=== PATIENT | female | born 1990 | race African-American/Black ===

== ENCOUNTER 2017-02-16 13:11 | Inpatient (IN) | payer MEDICAID ==
[2017-02-16] MEDS ORDERED: NORMAL SALINE 1000 ML 1,000 ML IV PRN (13:18)
--- NOTE | 2017-02-16 13:35 | PDOC H&P ---
History of Present Illness Admission Date/PCP: 02/16/17 13:11 YUKI MARSHALL MD Patient complains of: Shortness of the breath and wheezing History of Present Illness: JOSIE ALANIZ is a 26 year old female This is a 26-year-old female with a history of profound mental retardation's and cerebral palsy currently live in assisted living facility brought to the office because of the patient was complaining of wheezing and short of breathStarted this morning and not getting better after the breathing treatments Patient have a recently a G-tube was change and according to the caregiver patient vomited 2 at the time and possible aspirations According to the caregiver patient does not have any fever when I saw the patient in the office patients very bilateral rhonchi and patient Breathing heavy and patient's chest x-ray for the possible pneumonia and the patient's white count was 18,000 and decided to admit in the hospital for further IV antibiotic and a close monitor Review all medications through the caregiver Patient's mother is a power of anatomical embalmer and patients currently DNR but according to the DNR paper mother once is still intubated and still want to do all the measures and see will make decisions for further Past Medical History Neurological Medical History: Reports: Seizures Neurological History Note: Profound mental retardation and cerebral palsy GI Medical History: Reports: Gastroesophageal Reflux Disease GI History Note: G-tube placement Past Surgical History Past Surgical History: Reports: Other - G-tube placement Social History Information Source: Legal Guardian Lives with: Half-Way Smoking Status: Never Smoker Frequency of Alcohol Use: None Hx Recreational Drug Use: No Hx Prescription Drug Abuse: No Family History Family History: Reviewed & Not Pertinent Parental Family History Reviewed: Yes Children Family History Reviewed: Yes Sibling(s) Family History Reviewed.: Yes Review of Systems All systems: reviewed and no additional remarkable complaints except as stated Physical Exam Physical Exam: Patient is currently in a wheelchair bound with profound mental retardation's and cp posture General appearance: PRESENT: no acute distress Head exam: PRESENT: atraumatic Eye exam: PRESENT: PERRLA Mouth exam: PRESENT: dry mucosa Neck exam: ABSENT: JVD Respiratory exam: PRESENT: decreased breath sounds, rhonchi, symmetrical Cardiovascular exam: PRESENT: +S1, +S2, tachycardia GI/Abdominal exam: PRESENT: normal bowel sounds, soft Additonal comments: G-tube is in place Extremities exam: ABSENT: pedal edema Neurological exam: PRESENT: alert, awake Psychiatric exam: PRESENT: anxious Skin exam: PRESENT: dry Assessment & Plan - Diagnosis (1) Aspiration pneumonia Qualifiers: Aspiration pneumonia type: unspecified Laterality: unspecified laterality Is this a current diagnosis for this admission?: Yes Plan: Start the patient on IV antibioticAnd aspirations precautions (2) Leukocytosis Qualifiers: Leukocytosis type: bandemia Qualified Code(s): D72.825 - Bandemia Is this a current diagnosis for this admission?: Yes Plan: Due to the above conditions we will get the blood culture and sputum culture and start the broad-spectrum antibiotic (3) Respiratory distress Is this a current diagnosis for this admission?: Yes Plan: Continues to nebulizer treatments and oxygen's and consult the pulmonary (4) Profound mental retardation Is this a current diagnosis for this admission?: Yes (5) Seizure disorder Is this a current diagnosis for this admission?: Yes Plan: Continues to current seizures medications - Time Time Spent: 30 to 50 Minutes Medications reviewed and adjusted accordingly: Yes Anticipated discharge: SNF Within: Other - Inpatient Certification Medical Necessity: Need Close Monitoring Due to Risk of Patient Decompensation, Need For IV Fluids, Need for IV Antibiotics Post Hospital Care: D/C Shop Teacher Documentation - Plan Summary Plan Summary: Admit the patient in the telemetry bed start an IV antibiotic discussed with the caregiver very extensively and they will inform the mother about the patient 's current conditions and will talk to mother about the patient's CODE STATUS
[2017-02-16 15:49] LABS: HEMATOCRIT 43.2 % (36.0-47.0); HEMOGLOBIN 14.5 g/dL (12.0-15.5); MEAN CORPUSCULAR HEMOGLOBIN 33.2 pg (27.0-33.4); MEAN CORPUSCULAR HGB CONC 33.7 g/dL (32.0-36.0); MEAN CORPUSCULAR VOLUME 99 fl (80-97); PLATELET COUNT 345 10^3/uL (150-450); RED BLOOD COUNT 4.39 10^6/uL (3.72-5.28); WHITE BLOOD COUNT 25.3 10^3/uL (4.0-10.5)
[2017-02-16] MEDS: IPRATROPIUM/ALBUTEROL 0.5-2.5 MG/3 ML AMPUL NEB SCH ×2 (16:13→20:25)
--- NOTE | 2017-02-16 16:59 | RADIOLOGY REPORT (SQ) ---
EXAM DESCRIPTION: CT CHEST WITHOUT COMPLETED DATE/TIME: 02/16/2017 4:45 pm REASON FOR STUDY: respirtory distress/aspiration pnemonia COMPARISON: Chest x-ray dated 02/16/2017 TECHNIQUE: CT scan performed of the chest without intravenous contrast. Images reviewed with lung, soft tissue and bone windows. Reconstructed coronal and sagittal MPR images reviewed. All images st ored on PACS. All CT scanners at this facility use dose modulation, iterative reconstruction, and/or weight based d osing when appropriate to reduce radiation dose to as low as reasonably achievable (ALARA). [facility]: Dose Right [facility]: CareDose [facility]: Dose Right [facility]: Teradose 4D [facility]: Smart Sentrigo RADIATION DOSE: CT Rad equipment meets quality standard of care and radiation dose reduction techniq ues were employed. CTDIvol: 9.3 mGy. DLP: 288 mGy-cm. mGy. LIMITATIONS: Patient has made a shallow inspiration. FINDINGS: LUNGS AND PLEURA: Airspace consolidation is identified in the right mid and lower lung fie ld which could represent atelectatic changes or pneumonic consolidation. No pleural effusions are id entified. No pneumothorax is seen. HILAR AND MEDIASTINAL STRUCTURES: No identified masses or abnormal nodes. No obvious aneurysm. HEART AND VASCULAR STRUCTURES: No aneurysm. No pericardial effusion. UPPER ABDOMEN: No significant findings. Limited exam. THYROID AND OTHER SOFT TISSUES: No masses. No adenopathy. BONES: Thoracolumbar scoliosis is identified. HARDWARE: None in the chest. Enteric tube is identified in the upper abdomen. OTHER: No other significant findings. IMPRESSION: Airspace consolidation is identified in the right mid and lower lung field which could r epresent atelectatic changes or pneumonic consolidation. No pleural effusions are identified. Other findings as noted above TECHNICAL DOCUMENTATION: JOB ID: [id number] Quality ID # [id number]: Final reports with documentation of one or more dose reduction techniques (e.g., Au tomated exposure control, adjustment of the mA and/or kV according to patient size, use of iterative reconstruction technique) 2010 [employer]- All Rights Reserved
[2017-02-16 17:56] LABS: ANION GAP 14 (5-19); BLOOD UREA NITROGEN 6 mg/dL (7-20); CALCIUM 10.5 mg/dL (8.4-10.2); CARBON DIOXIDE 21 mmol/L (22-30); CHLORIDE 108 mmol/L (98-107); GLUCOSE 82 mg/dL (75-110); POTASSIUM 4.2 mmol/L (3.6-5.0); SODIUM 143.4 mmol/L (137-145)
[2017-02-16] MEDS: CLINDAMYCIN 600 MG/D5W RTU 600 MG/50 ML RTUPB IV SCH (18:11)
[2017-02-16] MEDS: BACLOFEN 20 MG TABLET PEG SCH ×2 (18:12→21:50)
[2017-02-16 20:12] LABS: INTERNATIONAL RATION (INR) 0.97; PROTHROMBIN TIME 13.5 SEC (11.4-15.4)
[2017-02-16 20:13] LABS: PARTIAL THROMBOPLASTIN TIME 34.8 SEC (23.5-35.8)
[2017-02-16] MEDS: CEFEPIME 1 GM/D5W RTU 1 GM/50 ML RTUPB IV SCH (21:49)
[2017-02-16] MEDS: FAMOTIDINE INJ/PF 20 MG/2 ML SDV IV SCH (21:50)
[2017-02-16] MEDS: ZONISAMIDE 100 MG CAPSULE PEG SCH (21:50)
[2017-02-16] MEDS ORDERED: FAMOTIDINE INJ/PF 20 MG/2 ML SDV IV SCH (22:00)
[2017-02-16] MEDS ORDERED: CEFEPIME HCL 1 GM in DEXTROSE 5%-WATER 50 ML IV SCH (22:00)
[2017-02-17] MEDS: CLINDAMYCIN 600 MG/D5W RTU 600 MG/50 ML RTUPB IV SCH ×3 (01:07→17:15)
[2017-02-17] MEDS: LANSOPRAZOLE 15 MG TAB.RAP.DR PEG SCH (05:49)
[2017-02-17 06:27] LABS: ABSOLUTE EOSINOPHILS # (AUTO) 0.1 10^3/uL (0.0-0.6); ABSOLUTE MONOCYTES (AUTO) 0.7 10^3/uL (0.1-1.4); BASOPHILS % (AUTO) 0.2 % (0-2); EOSINOPHILS % (AUTO) 0.3 % (0-6); HEMATOCRIT 36.7 % (36.0-47.0); LYMPHOCYTES % (AUTO) 23.7 % (13-45); MEAN CORPUSCULAR HEMOGLOBIN 33.6 pg (27.0-33.4); MEAN CORPUSCULAR HGB CONC 33.8 g/dL (32.0-36.0); MEAN CORPUSCULAR VOLUME 100 fl (80-97); MONOCYTES % (AUTO) 3.9 % (3-13); PLATELET COUNT 299 10^3/uL (150-450); RED BLOOD COUNT 3.69 10^6/uL (3.72-5.28); SEGMENTED NEUTROPHILS % (AUTO) 71.9 % (42-78); TOTAL CELLS COUNTED % (AUTO) 100 %; WHITE BLOOD COUNT 16.7 10^3/uL (4.0-10.5)
[2017-02-17 06:39] LABS: HEMOGLOBIN 12.4 g/dL (12.0-15.5)
[2017-02-17 06:52] LABS: ANION GAP 11 (5-19); BLOOD UREA NITROGEN 6 mg/dL (7-20); CALCIUM 9.2 mg/dL (8.4-10.2); CARBON DIOXIDE 21 mmol/L (22-30); CHLORIDE 108 mmol/L (98-107); GLUCOSE 91 mg/dL (75-110); POTASSIUM 3.7 mmol/L (3.6-5.0); SODIUM 139.9 mmol/L (137-145)
[2017-02-17] MEDS: IPRATROPIUM/ALBUTEROL 0.5-2.5 MG/3 ML AMPUL NEB SCH ×3 (07:40→16:43)
[2017-02-17] MEDS ORDERED: CALCIUM CARBONATE 1250 MG PEG SCH (10:00)
[2017-02-17] MEDS ORDERED: LEVONORGESTREL ETHIN ESTRADIOL PEG SCH (10:00)
[2017-02-17] MEDS: POLYETHYLENE GLYCOL 3350 POWDER 17 GM/1 PACKET PEG SCH (10:12)
[2017-02-17] MEDS: CALCIUM CARBONATE 500 MG TAB.CHEW PEG SCH (10:12)
[2017-02-17] MEDS: BACLOFEN 20 MG TABLET PEG SCH ×4 (10:12→22:56)
[2017-02-17] MEDS: FAMOTIDINE INJ/PF 20 MG/2 ML SDV IV SCH ×2 (10:13→22:55)
[2017-02-17] MEDS: ENOXAPARIN SODIUM INJ 40 MG/0.4 ML DISP.SYRIN SUBCUT SCH (10:13)
[2017-02-17] MEDS: CEFEPIME 1 GM/D5W RTU 1 GM/50 ML RTUPB IV SCH ×2 (10:13→22:55)
--- NOTE | 2017-02-17 11:03 | PDOC CONSULTATION ---
Consultation Consult Date: 02/16/17 Attending physician:: YUKI MARSHALL Consult reason:: pna History of Present Illness Admission Date/PCP: 02/16/17 13:11 YUKI MARSHALL MD History of Present Illness: JOSIE ALANIZ is a 26 year old female Information all information is derived from chart as patient unable to respond this is a 26-year-old female with a history of profound mental retardation's and cerebral palsy currently live in assisted living facility brought to the office because of the patient was complaining of wheezing and short of breathStarted this morning and not getting better after the breathing treatments Patient have a recently a G-tube was change and according to the caregiver patient vomited 2 at the time and possible aspirations According to the caregiver patient does not have any fever when I saw the patient in the office patients very bilateral rhonchi and patient Breathing heavy and patient's chest x-ray for the possible pneumonia and the patient's white count was 18,000 and decided to admit in the hospital for further IV antibiotic and a close monitor her Past Medical History Cardiac Medical History: Denies: Myocardial Infarction, Pulmonary Embolism Pulmonary Medical History: Reports: Pneumonia EENT Medical History: Denies: Ears, Nose Neurological Medical History: Reports: Seizures Denies: Multiple Sclerosis Endocrine Medical History: Denies: Diabetes Mellitus Type 1, Gestational Diabetes Renal/ Medical History: Denies: Nephrolithiasis Malignancy Medical History: Reports: None GI Medical History: Reports: Gastroesophageal Reflux Disease Denies: Cirrhosis, Crohn's Disease, Ulcerative Colitis Musculoskeltal Medical History: Denies: Gout Skin Medical History: Denies: Psoriasis Psychiatric Medical History: Reports: Other - Cerebral palsy advanced Traumatic Medical History: Denies: Traumatic Brain Injury Hematology: Denies: Sickle Cell Disease, Bleeding Tendencies Infectious Medical History: Denies: Hepatitis B, Hepatitis C Past Surgical History Past Surgical History: Reports: Other - G-tube placement Social History Information Source: [facility] Records Lives with: Half-Way Smoking Status: Never Smoker Frequency of Alcohol Use: None Hx Recreational Drug Use: No Hx Prescription Drug Abuse: No Do you have pets?: No Have you had any respiratory illnesses as a child?: No Have you been exposed to any sick contacts recently?: No Have you had any recent respiratory illnesses?: No Have you travelled outside of [place] in the past 12 months?: No Family History Parental Family History Reviewed: No Children Family History Reviewed: No Sibling(s) Family History Reviewed.: No Medication/Allergy Home Medications: Baclofen [Baclofen 20 mg Tablet] 20 mg PEG QID 02/16/17 Calcium Carbonate 1,250 mg PEG DAILY 02/16/17 Lansoprazole [Prevacid 15 mg Odt Tablet] 15 mg PEG Q6AM 02/16/17 Levonorgestrel-Ethin Estradiol [Introvale 0.15-0.03 mg Tablet] 1 tab PEG DAILY 02/16/17 Polyethylene Glycol 3350 [Miralax Powder 17 gm/Packet] 1 packet PEG DAILY Tegretol 5 ml PEG TID 02/16/17 Zonisamide [Zonegran 100 mg Capsule] 200 mg PEG QHS 02/16/17 Allergies/Adverse Reactions: No Known Allergies Allergy (Unverified 02/16/17 15:29) Review of Systems ROS unobtainable: Due to mental status Physical Exam Vital Signs: Temp Pulse Resp BP Pulse Ox 99.1 F 110 H 22 H 98/65 L 93 02/16/17 16:00 02/16/17 19:00 02/16/17 16:00 02/16/17 16:00 02/16/17 16:00 Intake & Output 02/15/17 02/16/17 02/17/17 06:59 06:59 06:59 Weight 39.7 kg General appearance: PRESENT: no acute distress, disheveled. ABSENT: cooperative , mild distress, morbidly obese, obese, severe distress, well-developed Head exam: PRESENT: atraumatic, normocephalic Eye exam: PRESENT: conjunctiva pale, EOMI. ABSENT: conjunctival injection, conjunctiva pink, periorbital swelling, scleral icterus Mouth exam: PRESENT: dry mucosa, neck supple. ABSENT: laceration, moist Neck exam: ABSENT: carotid bruit, JVD, lymphadenopathy, thyromegaly, tracheal deviation, tracheostomy Respiratory exam: PRESENT: decreased breath sounds, prolonged expiratory phas, rales, rhonchi, symmetrical, unlabored. ABSENT: accessory muscle use, chest wall tenderness, clear to auscultation abeba, crackles, retraction, stridor, tachypnea Cardiovascular exam: PRESENT: RRR, +S1, +S2 Pulses: PRESENT: normal radial pulses GI/Abdominal exam: PRESENT: normal bowel sounds, soft, other - PEG tube in place. ABSENT: distended, guarding, mass, organolmegaly, rebound, tenderness Extremities exam: ABSENT: clubbing, joint swelling Musculoskeletal exam: PRESENT: deformity. ABSENT: ambulatory, dislocation, full ROM Skin exam: PRESENT: dry, warm Results Laboratory Results: 02/16/17 15:20 02/16/17 17:15 02/16/17 02/16/17 15:20 17:15 WBC 25.3 H RBC 4.39 Hgb 14.5 Hct 43.2 MCV 99 H MCH 33.2 MCHC 33.7 RDW 14.0 Plt Count 345 Sodium 143.4 Potassium 4.2 Chloride 108 H Carbon Dioxide 21 L Anion Gap 14 BUN 6 L Creatinine 0.37 L Est GFR ( Amer) > 60 Est GFR (Non-Af Amer) > 60 Glucose 82 Calcium 10.5 H Impressions: Chest CT 02/16/17 00:00 IMPRESSION: Airspace consolidation is identified in the right mid and lower lung field which could represent atelectatic changes or pneumonic consolidation. No pleural effusions are identified. Other findings as noted above Assessment & Plan - Diagnosis (1) Aspiration pneumonia Qualifiers: Aspiration pneumonia type: unspecified Laterality: unspecified laterality Is this a current diagnosis for this admission?: Yes Plan: Keep patient in reverse Trendelenburg at all times right middle and lower lobes (2) Profound mental retardation Is this a current diagnosis for this admission?: Yes Plan: Unchanged (3) Respiratory distress Is this a current diagnosis for this admission?: Yes Plan: Stable at this time (4) Seizure disorder Is this a current diagnosis for this admission?: Yes
--- NOTE | 2017-02-17 13:21 | PDOC PROGRESS REPORT ---
Subjective Progress Note for:: 02/17/17 Subjective:: Patient is currently doing well Patient's CT of the chest was suggesting some aspiration pneumonia Patient's, no fever overnight and white count is also coming down in no respiratory distress Patient's mother is on the bedside discussed with the mother about all the test reports and the patient's conditions Reason For Visit: ASPIRATION PNEUMONIA Physical Exam Vital Signs: Temp Pulse Resp BP Pulse Ox 98.4 F 92 16 111/68 94 02/17/17 11:45 02/17/17 12:09 02/17/17 12:09 02/17/17 11:45 02/17/17 12:09 Intake & Output 02/16/17 02/17/17 02/18/17 06:59 06:59 06:59 Intake Total 800 Balance 800 Weight 40 kg Physical Exam: Profound mental retardation's General appearance: PRESENT: no acute distress Eye exam: PRESENT: PERRLA Neck exam: ABSENT: JVD Respiratory exam: PRESENT: decreased breath sounds Cardiovascular exam: PRESENT: +S1, +S2 GI/Abdominal exam: PRESENT: normal bowel sounds, soft Extremities exam: ABSENT: pedal edema Neurological exam: PRESENT: alert, altered Skin exam: PRESENT: dry Results Laboratory Results: 02/17/17 05:24 02/17/17 05:24 02/16/17 02/16/17 02/17/17 15:20 17:15 05:24 WBC 25.3 H 16.7 H RBC 4.39 3.69 L Hgb 14.5 12.4 D Hct 43.2 36.7 MCV 99 H 100 H MCH 33.2 33.6 H MCHC 33.7 33.8 RDW 14.0 14.0 Plt Count 345 299 Seg Neutrophils % 71.9 Lymphocytes % 23.7 Monocytes % 3.9 Eosinophils % 0.3 Basophils % 0.2 Absolute Neutrophils 12.0 H Absolute Lymphocytes 4.0 Absolute Monocytes 0.7 Absolute Eosinophils 0.1 Absolute Basophils 0.0 Sodium 143.4 Potassium 4.2 Chloride 108 H Carbon Dioxide 21 L Anion Gap 14 BUN 6 L Creatinine 0.37 L Est GFR ( Amer) > 60 Est GFR (Non-Af Amer) > 60 Glucose 82 Calcium 10.5 H 02/17/17 05:24 WBC RBC Hgb Hct MCV MCH MCHC RDW Plt Count Seg Neutrophils % Lymphocytes % Monocytes % Eosinophils % Basophils % Absolute Neutrophils Absolute Lymphocytes Absolute Monocytes Absolute Eosinophils Absolute Basophils Sodium 139.9 Potassium 3.7 Chloride 108 H Carbon Dioxide 21 L Anion Gap 11 BUN 6 L Creatinine 0.40 L Est GFR ( Amer) > 60 Est GFR (Non-Af Amer) > 60 Glucose 91 Calcium 9.2 Impressions: Chest CT 02/16/17 00:00 IMPRESSION: Airspace consolidation is identified in the right mid and lower lung field which could represent atelectatic changes or pneumonic consolidation. No pleural effusions are identified. Other findings as noted above Assessment & Plan - Diagnosis (1) Aspiration pneumonia Qualifiers: Aspiration pneumonia type: unspecified Laterality: unspecified laterality Is this a current diagnosis for this admission?: Yes Plan: Continues to IV antibiotic (2) Leukocytosis Qualifiers: Leukocytosis type: bandemia Qualified Code(s): D72.825 - Bandemia Is this a current diagnosis for this admission?: Yes Plan: Most likely coming from the S patient's pneumonia (3) Respiratory distress Is this a current diagnosis for this admission?: Yes Plan: Currently all stable (4) Profound mental retardation Is this a current diagnosis for this admission?: Yes (5) Seizure disorder Is this a current diagnosis for this admission?: Yes Plan: Continues to current seizures medications - Time Time Spent with patient: 15-24 minutes Medications reviewed and adjusted accordingly: Yes Anticipated discharge: SNF Within: Other - Inpatient Certification Medical Necessity: Need Close Monitoring Due to Risk of Patient Decompensation, Need for IV Antibiotics Post Hospital Care: D/C Qualitative Field Project Manager Documentation - Plan Summary Plan Summary: Continues to current medication
[2017-02-17] MEDS ORDERED: DILTIAZEM HCL 30 MG TABLET PO ONE (18:30)
[2017-02-17] MEDS: LEVALBUTEROL HCL NEB 1.25 MG/3 ML AMPUL NEB SCH (20:28)
[2017-02-17] MEDS ORDERED: CEFEPIME 1 GM/D5W RTU 1 GM/50 ML RTUPB IV ONE (22:44)
[2017-02-17] MEDS: ZONISAMIDE 100 MG CAPSULE PEG SCH (22:55)
[2017-02-18] MEDS: CLINDAMYCIN 600 MG/D5W RTU 600 MG/50 ML RTUPB IV SCH ×3 (02:38→17:41)
[2017-02-18 05:19] LABS: ABSOLUTE EOSINOPHILS # (AUTO) 0.1 10^3/uL (0.0-0.6); ABSOLUTE LYMPHOCYTES (AUTO) 3.6 10^3/uL (0.5-4.7); ABSOLUTE MONOCYTES (AUTO) 1.1 10^3/uL (0.1-1.4); ABSOLUTE NEUT (AUTO) 7.9 10^3/uL (1.7-8.2); BASOPHILS % (AUTO) 0.4 % (0-2); EOSINOPHILS % (AUTO) 1.1 % (0-6); HEMATOCRIT 34.9 % (36.0-47.0); HEMOGLOBIN 11.6 g/dL (12.0-15.5); MEAN CORPUSCULAR HGB CONC 33.2 g/dL (32.0-36.0); MEAN CORPUSCULAR VOLUME 99 fl (80-97); MONOCYTES % (AUTO) 8.9 % (3-13); PLATELET COUNT 297 10^3/uL (150-450); RED BLOOD COUNT 3.51 10^6/uL (3.72-5.28); SEGMENTED NEUTROPHILS % (AUTO) 61.6 % (42-78); TOTAL CELLS COUNTED % (AUTO) 100 %; WHITE BLOOD COUNT 12.9 10^3/uL (4.0-10.5)
[2017-02-18 05:33] LABS: ANION GAP 10 (5-19); BLOOD UREA NITROGEN 10 mg/dL (7-20); CALCIUM 9.1 mg/dL (8.4-10.2); CARBON DIOXIDE 20 mmol/L (22-30); CHLORIDE 114 mmol/L (98-107); GLUCOSE 122 mg/dL (75-110); POTASSIUM 3.6 mmol/L (3.6-5.0)
[2017-02-18] MEDS: LANSOPRAZOLE 15 MG TAB.RAP.DR PEG SCH (06:06)
[2017-02-18] MEDS: LEVALBUTEROL HCL NEB 1.25 MG/3 ML AMPUL NEB SCH ×4 (07:45→20:29)
--- NOTE | 2017-02-18 09:44 | PDOC PROGRESS REPORT ---
Subjective Progress Note for:: 02/18/17 Subjective:: Patient is currently doing fair No fever overnight Patient DuoNeb was changed to the Xopenex due to the elevated heart rateAnd doing well Patient's white count is also coming down Reason For Visit: ASPIRATION PNEUMONIA Physical Exam Vital Signs: Temp Pulse Resp BP Pulse Ox 98.4 F 80 17 116/88 H 100 02/18/17 08:00 02/18/17 08:00 02/18/17 08:00 02/18/17 08:00 02/18/17 08:00 Intake & Output 02/17/17 02/18/17 02/19/17 06:59 06:59 06:59 Intake Total 800 2320 Balance 800 2320 Weight 40 kg 46.7 kg General appearance: PRESENT: no acute distress Eye exam: PRESENT: PERRLA Respiratory exam: PRESENT: clear to auscultation abeba Cardiovascular exam: PRESENT: +S1, +S2 GI/Abdominal exam: PRESENT: normal bowel sounds, soft Neurological exam: PRESENT: alert Skin exam: PRESENT: dry Results Laboratory Results: 02/18/17 04:55 02/18/17 04:55 02/18/17 02/18/17 04:55 04:55 WBC 12.9 H RBC 3.51 L Hgb 11.6 L Hct 34.9 L MCV 99 H MCH 33.0 MCHC 33.2 RDW 14.0 Plt Count 297 Seg Neutrophils % 61.6 Lymphocytes % 28.0 Monocytes % 8.9 Eosinophils % 1.1 Basophils % 0.4 Absolute Neutrophils 7.9 Absolute Lymphocytes 3.6 Absolute Monocytes 1.1 Absolute Eosinophils 0.1 Absolute Basophils 0.0 Sodium 144.0 Potassium 3.6 Chloride 114 H Carbon Dioxide 20 L Anion Gap 10 BUN 10 Creatinine 0.41 L Est GFR ( Amer) > 60 Est GFR (Non-Af Amer) > 60 Glucose 122 H Calcium 9.1 Impressions: Chest CT 02/16/17 00:00 IMPRESSION: Airspace consolidation is identified in the right mid and lower lung field which could represent atelectatic changes or pneumonic consolidation. No pleural effusions are identified. Other findings as noted above Assessment & Plan - Diagnosis (1) Aspiration pneumonia Qualifiers: Aspiration pneumonia type: unspecified Laterality: unspecified laterality Is this a current diagnosis for this admission?: Yes Plan: Continues to IV antibiotic (2) Leukocytosis Qualifiers: Leukocytosis type: bandemia Qualified Code(s): D72.825 - Bandemia Is this a current diagnosis for this admission?: Yes Plan: Most likely coming from the S patient's pneumonia (3) Respiratory distress Is this a current diagnosis for this admission?: Yes Plan: Currently all stable (4) Profound mental retardation Is this a current diagnosis for this admission?: Yes (5) Seizure disorder Is this a current diagnosis for this admission?: Yes Plan: Continues to current seizures medications - Time Time Spent with patient: 15-24 minutes Medications reviewed and adjusted accordingly: Yes Anticipated discharge: SNF Within: Other - Inpatient Certification Medical Necessity: Need Close Monitoring Due to Risk of Patient Decompensation, Need for IV Antibiotics Post Hospital Care: D/C Learning Manager Documentation - Plan Summary Plan Summary: Continues IV antibiotic repeat the chest x-ray today
[2017-02-18] MEDS: POLYETHYLENE GLYCOL 3350 POWDER 17 GM/1 PACKET PEG SCH (10:04)
[2017-02-18] MEDS: FAMOTIDINE INJ/PF 20 MG/2 ML SDV IV SCH ×2 (10:04→23:05)
[2017-02-18] MEDS: CALCIUM CARBONATE 500 MG TAB.CHEW PEG SCH (10:05)
[2017-02-18] MEDS: BACLOFEN 20 MG TABLET PEG SCH ×4 (10:06→23:05)
[2017-02-18] MEDS: ENOXAPARIN SODIUM INJ 40 MG/0.4 ML DISP.SYRIN SUBCUT SCH (10:08)
[2017-02-18] MEDS: CEFEPIME 1 GM/D5W RTU 1 GM/50 ML RTUPB IV SCH ×2 (10:10→23:05)
--- NOTE | 2017-02-18 12:16 | RADIOLOGY REPORT (SQ) ---
EXAM DESCRIPTION: CHEST SINGLE VIEW COMPLETED DATE/TIME: 02/18/2017 11:59 am REASON FOR STUDY: aspiration pnemonia COMPARISON: Chest x-ray and chest CT scan dated 02/16/2017 EXAM PARAMETERS: NUMBER OF VIEWS: One view. TECHNIQUE: Single frontal radiographic view of the chest acquired. RADIATION DOSE: NA LIMITATIONS: Study is limited due to the patient making a shallow inspiration, the rotation of the im age and the patient's arm overlying a portion of the right hemithorax. FINDINGS: LUNGS AND PLEURA: There is ill-defined increased density in the left hemithorax which coul d represent a developing infiltrate or atelectatic changes. MEDIASTINUM AND HILAR STRUCTURES: No masses. Contour normal. HEART AND VASCULAR STRUCTURES: Allowing for the rotation and technique, the configuration of the hear t mediastinal structures is unchanged BONES: No acute findings. HARDWARE: None in the chest. OTHER: Some elevation of the right hemidiaphragm is seen. IMPRESSION: Limited study as noted above. There is ill-defined increased density in the left hemith orax which could represent a developing infiltrate or atelectatic changes. Other findings as noted terri anguiano TECHNICAL DOCUMENTATION: JOB ID: [id number] [employer]- All Rights Reserved
--- NOTE | 2017-02-18 12:24 | PDOC PROGRESS REPORT ---
Subjective Progress Note for:: 02/18/17 Reason For Visit: ASPIRATION PNEUMONIA Physical Exam Vital Signs: Temp Pulse Resp BP Pulse Ox 98.4 F 80 17 116/88 H 100 02/18/17 08:00 02/18/17 08:00 02/18/17 08:00 02/18/17 08:00 02/18/17 08:00 Intake & Output 02/17/17 02/18/17 02/19/17 06:59 06:59 06:59 Intake Total 800 2320 Balance 800 2320 Weight 40 kg 46.7 kg General appearance: PRESENT: no acute distress, disheveled. ABSENT: cooperative , mild distress, morbidly obese, obese, severe distress Eye exam: PRESENT: conjunctiva pale. ABSENT: conjunctival injection, conjunctiva pink, scleral icterus Mouth exam: PRESENT: dry mucosa, neck supple, tongue midline. ABSENT: laceration, moist Neck exam: ABSENT: carotid bruit, JVD, lymphadenopathy, thyromegaly, tracheal deviation, tracheostomy Respiratory exam: PRESENT: crackles, decreased breath sounds, prolonged expiratory phas, rhonchi, symmetrical, unlabored, wheezes. ABSENT: accessory muscle use, chest wall tenderness, clear to auscultation abeba, rales, retraction , stridor, tachypnea Cardiovascular exam: PRESENT: RRR, +S1, +S2. ABSENT: rubs Pulses: PRESENT: normal radial pulses GI/Abdominal exam: PRESENT: other - PEG tube Extremities exam: ABSENT: clubbing, joint swelling Musculoskeletal exam: ABSENT: ambulatory, full ROM Neurological exam: PRESENT: awake Skin exam: PRESENT: dry, warm Results Laboratory Results: 02/18/17 04:55 02/18/17 04:55 02/18/17 02/18/17 04:55 04:55 WBC 12.9 H RBC 3.51 L Hgb 11.6 L Hct 34.9 L MCV 99 H MCH 33.0 MCHC 33.2 RDW 14.0 Plt Count 297 Seg Neutrophils % 61.6 Lymphocytes % 28.0 Monocytes % 8.9 Eosinophils % 1.1 Basophils % 0.4 Absolute Neutrophils 7.9 Absolute Lymphocytes 3.6 Absolute Monocytes 1.1 Absolute Eosinophils 0.1 Absolute Basophils 0.0 Sodium 144.0 Potassium 3.6 Chloride 114 H Carbon Dioxide 20 L Anion Gap 10 BUN 10 Creatinine 0.41 L Est GFR ( Amer) > 60 Est GFR (Non-Af Amer) > 60 Glucose 122 H Calcium 9.1 Impressions: Chest CT 02/16/17 00:00 IMPRESSION: Airspace consolidation is identified in the right mid and lower lung field which could represent atelectatic changes or pneumonic consolidation. No pleural effusions are identified. Other findings as noted above Assessment & Plan - Diagnosis (1) Aspiration pneumonia Qualifiers: Aspiration pneumonia type: unspecified Laterality: unspecified laterality Is this a current diagnosis for this admission?: Yes Plan: Keep patient in reverse Trendelenburg at all times right middle and lower lobes (2) Profound mental retardation Is this a current diagnosis for this admission?: Yes Plan: Unchanged (3) Respiratory distress Is this a current diagnosis for this admission?: No (4) Seizure disorder Is this a current diagnosis for this admission?: Yes
[2017-02-18] MEDS: ZONISAMIDE 100 MG CAPSULE PEG SCH (23:05)
[2017-02-19] MEDS: CLINDAMYCIN 600 MG/D5W RTU 600 MG/50 ML RTUPB IV SCH ×3 (02:02→17:24)
[2017-02-19] MEDS: LANSOPRAZOLE 15 MG TAB.RAP.DR PEG SCH (05:23)
[2017-02-19 06:01] LABS: ANION GAP 11 (5-19); BLOOD UREA NITROGEN 11 mg/dL (7-20); CALCIUM 9.2 mg/dL (8.4-10.2); CARBON DIOXIDE 20 mmol/L (22-30); CHLORIDE 111 mmol/L (98-107); GLUCOSE 101 mg/dL (75-110); POTASSIUM 4.3 mmol/L (3.6-5.0); SODIUM 142.2 mmol/L (137-145)
[2017-02-19 06:51] LABS: ABSOLUTE EOSINOPHILS # (AUTO) 0.4 10^3/uL (0.0-0.6); ABSOLUTE LYMPHOCYTES (AUTO) 3.5 10^3/uL (0.5-4.7); ABSOLUTE MONOCYTES (AUTO) 0.7 10^3/uL (0.1-1.4); ABSOLUTE NEUT (AUTO) 5.5 10^3/uL (1.7-8.2); BASOPHILS % (AUTO) 0.4 % (0-2); EOSINOPHILS % (AUTO) 4.1 % (0-6); HEMATOCRIT 36.5 % (36.0-47.0); HEMOGLOBIN 12.5 g/dL (12.0-15.5); LYMPHOCYTES % (AUTO) 34.6 % (13-45); MEAN CORPUSCULAR HEMOGLOBIN 33.6 pg (27.0-33.4); MEAN CORPUSCULAR HGB CONC 34.2 g/dL (32.0-36.0); MEAN CORPUSCULAR VOLUME 98 fl (80-97); MONOCYTES % (AUTO) 7.2 % (3-13); PLATELET COUNT 312 10^3/uL (150-450); RED BLOOD COUNT 3.72 10^6/uL (3.72-5.28); RED CELL DISTRIBUTION WIDTH 13.8 % (11.5-14.0); SEGMENTED NEUTROPHILS % (AUTO) 53.7 % (42-78); TOTAL CELLS COUNTED % (AUTO) 100 %; WHITE BLOOD COUNT 10.2 10^3/uL (4.0-10.5)
[2017-02-19] MEDS: LEVALBUTEROL HCL NEB 1.25 MG/3 ML AMPUL NEB SCH ×4 (07:45→19:48)
[2017-02-19] MEDS: FAMOTIDINE INJ/PF 20 MG/2 ML SDV IV SCH ×2 (09:25→22:48)
[2017-02-19] MEDS: ENOXAPARIN SODIUM INJ 40 MG/0.4 ML DISP.SYRIN SUBCUT SCH (09:25)
[2017-02-19] MEDS: CALCIUM CARBONATE 500 MG TAB.CHEW PEG SCH (09:26)
[2017-02-19] MEDS: BACLOFEN 20 MG TABLET PEG SCH ×4 (09:26→22:49)
[2017-02-19] MEDS: POLYETHYLENE GLYCOL 3350 POWDER 17 GM/1 PACKET PEG SCH (09:27)
[2017-02-19] MEDS: CEFEPIME 1 GM/D5W RTU 1 GM/50 ML RTUPB IV SCH ×2 (11:33→22:49)
--- NOTE | 2017-02-19 12:49 | PDOC PROGRESS REPORT ---
Subjective Progress Note for:: 02/19/17 Subjective:: Patient is currently doing fair No fever overnight Patient DuoNeb was changed to the Xopenex due to the elevated heart rateAnd doing well Patient's white count is also coming down Reason For Visit: ASPIRATION PNEUMONIA Physical Exam Vital Signs: Temp Pulse Resp BP Pulse Ox 98.3 F 90 16 133/94 H 95 02/19/17 08:19 02/19/17 11:06 02/19/17 11:06 02/19/17 08:19 02/19/17 11:06 Intake & Output 02/18/17 02/19/17 02/20/17 06:59 06:59 06:59 Intake Total 2320 2259 Balance 2320 2259 Weight 46.7 kg 48.2 kg General appearance: PRESENT: no acute distress Eye exam: PRESENT: PERRLA Respiratory exam: PRESENT: decreased breath sounds Cardiovascular exam: PRESENT: +S1, +S2 GI/Abdominal exam: PRESENT: normal bowel sounds, soft Extremities exam: ABSENT: pedal edema Neurological exam: PRESENT: alert, awake Skin exam: PRESENT: dry Results Laboratory Results: 02/19/17 06:40 02/19/17 04:59 02/19/17 02/19/17 02/19/17 04:59 04:59 06:40 WBC Cancelled 10.2 RBC Cancelled 3.72 Hgb Cancelled 12.5 Hct Cancelled 36.5 MCV Cancelled 98 H MCH Cancelled 33.6 H MCHC Cancelled 34.2 RDW Cancelled 13.8 Plt Count Cancelled 312 Seg Neutrophils % Cancelled 53.7 Lymphocytes % Cancelled 34.6 Monocytes % Cancelled 7.2 Eosinophils % Cancelled 4.1 Basophils % Cancelled 0.4 Absolute Neutrophils Cancelled 5.5 Absolute Lymphocytes Cancelled 3.5 Absolute Monocytes Cancelled 0.7 Absolute Eosinophils Cancelled 0.4 Absolute Basophils Cancelled 0.0 Sodium 142.2 Potassium 4.3 Chloride 111 H Carbon Dioxide 20 L Anion Gap 11 BUN 11 Creatinine 0.33 L Est GFR ( Amer) > 60 Est GFR (Non-Af Amer) > 60 Glucose 101 Calcium 9.2 Impressions: Chest CT 02/16/17 00:00 IMPRESSION: Airspace consolidation is identified in the right mid and lower lung field which could represent atelectatic changes or pneumonic consolidation. No pleural effusions are identified. Other findings as noted above Chest X-Ray 02/18/17 00:00 IMPRESSION: Limited study as noted above. There is ill-defined increased density in the left hemithorax which could represent a developing infiltrate or atelectatic changes. Other findings as noted above Assessment & Plan - Diagnosis (1) Aspiration pneumonia Qualifiers: Aspiration pneumonia type: unspecified Laterality: unspecified laterality Is this a current diagnosis for this admission?: Yes Plan: Continues to IV antibiotic (2) Leukocytosis Qualifiers: Leukocytosis type: bandemia Qualified Code(s): D72.825 - Bandemia Is this a current diagnosis for this admission?: Yes Plan: Most likely coming from the S patient's pneumonia (3) Respiratory distress Is this a current diagnosis for this admission?: No Plan: Currently all stable (4) Profound mental retardation Is this a current diagnosis for this admission?: Yes (5) Seizure disorder Is this a current diagnosis for this admission?: Yes Plan: Continues to current seizures medications - Time Time Spent with patient: 15-24 minutes Medications reviewed and adjusted accordingly: Yes Anticipated discharge: Other Within: Other - Inpatient Certification Medical Necessity: Need Close Monitoring Due to Risk of Patient Decompensation Post Hospital Care: D/C Instructor Physical Documentation - Plan Summary Plan Summary: cont curr med
[2017-02-19] MEDS: ZONISAMIDE 100 MG CAPSULE PEG SCH (22:49)
[2017-02-20] MEDS: CLINDAMYCIN 600 MG/D5W RTU 600 MG/50 ML RTUPB IV SCH ×3 (02:59→17:27)
[2017-02-20] MEDS: LANSOPRAZOLE 15 MG TAB.RAP.DR PEG SCH (06:43)
[2017-02-20 06:48] LABS: ABSOLUTE BASOPHILS # (AUTO) 0.1 10^3/uL (0.0-0.2); ABSOLUTE EOSINOPHILS # (AUTO) 0.4 10^3/uL (0.0-0.6); ABSOLUTE LYMPHOCYTES (AUTO) 3.1 10^3/uL (0.5-4.7); ABSOLUTE MONOCYTES (AUTO) 0.8 10^3/uL (0.1-1.4); ABSOLUTE NEUT (AUTO) 8.8 10^3/uL (1.7-8.2); BASOPHILS % (AUTO) 0.4 % (0-2); EOSINOPHILS % (AUTO) 3.2 % (0-6); HEMATOCRIT 41.3 % (36.0-47.0); HEMOGLOBIN 14.2 g/dL (12.0-15.5); LYMPHOCYTES % (AUTO) 23.4 % (13-45); MEAN CORPUSCULAR HEMOGLOBIN 33.7 pg (27.0-33.4); MEAN CORPUSCULAR HGB CONC 34.3 g/dL (32.0-36.0); MEAN CORPUSCULAR VOLUME 98 fl (80-97); MONOCYTES % (AUTO) 6.3 % (3-13); PLATELET COUNT 351 10^3/uL (150-450); RED BLOOD COUNT 4.21 10^6/uL (3.72-5.28); RED CELL DISTRIBUTION WIDTH 13.8 % (11.5-14.0); SEGMENTED NEUTROPHILS % (AUTO) 66.7 % (42-78); TOTAL CELLS COUNTED % (AUTO) 100 %; WHITE BLOOD COUNT 13.2 10^3/uL (4.0-10.5)
[2017-02-20 07:10] LABS: ANION GAP 13 (5-19); BLOOD UREA NITROGEN 13 mg/dL (7-20); CALCIUM 9.9 mg/dL (8.4-10.2); CARBON DIOXIDE 19 mmol/L (22-30); CHLORIDE 108 mmol/L (98-107); GLUCOSE 102 mg/dL (75-110)
[2017-02-20] MEDS: LEVALBUTEROL HCL NEB 1.25 MG/3 ML AMPUL NEB SCH ×4 (08:10→20:58)
[2017-02-20] MEDS: CEFEPIME 1 GM/D5W RTU 1 GM/50 ML RTUPB IV SCH ×2 (09:55→22:29)
[2017-02-20] MEDS: CALCIUM CARBONATE 500 MG TAB.CHEW PEG SCH (10:32)
[2017-02-20] MEDS: ENOXAPARIN SODIUM INJ 40 MG/0.4 ML DISP.SYRIN SUBCUT SCH (10:32)
[2017-02-20] MEDS: FAMOTIDINE INJ/PF 20 MG/2 ML SDV IV SCH ×2 (10:32→22:28)
[2017-02-20] MEDS: POLYETHYLENE GLYCOL 3350 POWDER 17 GM/1 PACKET PEG SCH (10:33)
[2017-02-20] MEDS: BACLOFEN 20 MG TABLET PEG SCH ×4 (10:34→22:29)
--- NOTE | 2017-02-20 14:28 | PDOC PROGRESS REPORT ---
Subjective Progress Note for:: 02/20/17 Subjective:: Remain nonverbal communicatively. No reported difficulty with breathing or fever. Tolerating PEG tube feeding. Reason For Visit: ASPIRATION PNEUMONIA Physical Exam Vital Signs: Temp Pulse Resp BP Pulse Ox 98.4 F 88 17 134/86 H 99 02/20/17 11:20 02/20/17 12:00 02/20/17 12:00 02/20/17 11:20 02/20/17 12:00 Intake & Output 02/19/17 02/20/17 02/21/17 06:59 06:59 06:59 Intake Total 2259 1230 Balance 2259 1230 Weight 48.2 kg 47.1 kg General appearance: PRESENT: no acute distress Head exam: PRESENT: atraumatic, normocephalic Mouth exam: PRESENT: moist Respiratory exam: PRESENT: crackles - scattered bilaterally, decreased breath sounds - at bases Cardiovascular exam: PRESENT: RRR. ABSENT: diastolic murmur, rubs, systolic murmur Vascular exam: PRESENT: normal capillary refill. ABSENT: pallor GI/Abdominal exam: PRESENT: normal bowel sounds, soft, other - PEG site satisfactory Musculoskeletal exam: PRESENT: deformity - extensive contracture deformities Neurological exam: PRESENT: awake - and cooperative with examination Skin exam: PRESENT: dry, warm Results Laboratory Results: 02/20/17 06:09 02/20/17 06:09 02/20/17 02/20/17 06:09 06:09 WBC 13.2 H RBC 4.21 Hgb 14.2 Hct 41.3 MCV 98 H MCH 33.7 H MCHC 34.3 RDW 13.8 Plt Count 351 Seg Neutrophils % 66.7 Lymphocytes % 23.4 Monocytes % 6.3 Eosinophils % 3.2 Basophils % 0.4 Absolute Neutrophils 8.8 H Absolute Lymphocytes 3.1 Absolute Monocytes 0.8 Absolute Eosinophils 0.4 Absolute Basophils 0.1 Sodium 140.0 Potassium 4.0 Chloride 108 H Carbon Dioxide 19 L Anion Gap 13 BUN 13 Creatinine 0.37 L Est GFR ( Amer) > 60 Est GFR (Non-Af Amer) > 60 Glucose 102 Calcium 9.9 Impressions: Chest CT 02/16/17 00:00 IMPRESSION: Airspace consolidation is identified in the right mid and lower lung field which could represent atelectatic changes or pneumonic consolidation. No pleural effusions are identified. Other findings as noted above Chest X-Ray 02/18/17 00:00 IMPRESSION: Limited study as noted above. There is ill-defined increased density in the left hemithorax which could represent a developing infiltrate or atelectatic changes. Other findings as noted above Assessment & Plan - Diagnosis (1) Aspiration pneumonia Qualifiers: Aspiration pneumonia type: unspecified Laterality: unspecified laterality Is this a current diagnosis for this admission?: Yes Plan: Continue IV Cefepime and Cleocin coverage. See covering attending physician orders. 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 (3) Seizure disorder Is this a current diagnosis for this admission?: Yes Plan: See covering attending physician orders. (4) Profound mental retardation Is this a current diagnosis for this admission?: Yes Plan: See covering attending physician orders. - Time Time Spent with patient: 25-34 minutes Medications reviewed and adjusted accordingly: Yes Anticipated discharge: SNF Within: Other - Inpatient Certification Based on my medical assessment, after consideration of the patient's comorbidities, presenting symptoms, or acuity I expect that the services needed warrant INPATIENT care.: Yes I certify that my determination is in accordance with my understanding of Medicare's requirements for reasonable and necessary INPATIENT services [42 CFR 412.3e].: Yes Medical Necessity: Need Close Monitoring Due to Risk of Patient Decompensation, Need For IV Fluids, Need For Continuous Telemetry Monitoring, Need for IV Antibiotics, Risk of Complication if Not Cared For in Hospital Post Hospital Care: D/C or Transfer Summary - Plan Summary Plan Summary: See covering attending physician orders.
[2017-02-20] MEDS: ZONISAMIDE 100 MG CAPSULE PEG SCH (22:29)
[2017-02-21] MEDS: CLINDAMYCIN 600 MG/D5W RTU 600 MG/50 ML RTUPB IV SCH ×3 (02:48→17:54)
[2017-02-21] MEDS: LANSOPRAZOLE 15 MG TAB.RAP.DR PEG SCH (05:44)
[2017-02-21] MEDS: LEVALBUTEROL HCL NEB 1.25 MG/3 ML AMPUL NEB SCH ×4 (07:36→20:44)
[2017-02-21 08:08] LABS: ABSOLUTE BASOPHILS # (AUTO) 0.1 10^3/uL (0.0-0.2); ABSOLUTE EOSINOPHILS # (AUTO) 0.3 10^3/uL (0.0-0.6); ABSOLUTE LYMPHOCYTES (AUTO) 2.5 10^3/uL (0.5-4.7); ABSOLUTE MONOCYTES (AUTO) 0.8 10^3/uL (0.1-1.4); ABSOLUTE NEUT (AUTO) 7.1 10^3/uL (1.7-8.2); BASOPHILS % (AUTO) 0.6 % (0-2); EOSINOPHILS % (AUTO) 3.2 % (0-6); HEMATOCRIT 40.8 % (36.0-47.0); HEMOGLOBIN 14.1 g/dL (12.0-15.5); LYMPHOCYTES % (AUTO) 22.8 % (13-45); MEAN CORPUSCULAR HGB CONC 34.5 g/dL (32.0-36.0); MEAN CORPUSCULAR VOLUME 99 fl (80-97); MONOCYTES % (AUTO) 7.8 % (3-13); PLATELET COUNT 383 10^3/uL (150-450); RED BLOOD COUNT 4.14 10^6/uL (3.72-5.28); RED CELL DISTRIBUTION WIDTH 13.7 % (11.5-14.0); SEGMENTED NEUTROPHILS % (AUTO) 65.6 % (42-78); TOTAL CELLS COUNTED % (AUTO) 100 %; WHITE BLOOD COUNT 10.8 10^3/uL (4.0-10.5)
[2017-02-21 08:31] LABS: ANION GAP 13 (5-19); BLOOD UREA NITROGEN 13 mg/dL (7-20); CALCIUM 9.9 mg/dL (8.4-10.2); CARBON DIOXIDE 20 mmol/L (22-30); CHLORIDE 108 mmol/L (98-107); GLUCOSE 88 mg/dL (75-110); POTASSIUM 4.8 mmol/L (3.6-5.0); SODIUM 140.5 mmol/L (137-145)
[2017-02-21] MEDS: BACLOFEN 20 MG TABLET PEG SCH ×4 (10:16→22:50)
[2017-02-21] MEDS: CALCIUM CARBONATE 500 MG TAB.CHEW PEG SCH (10:16)
[2017-02-21] MEDS: POLYETHYLENE GLYCOL 3350 POWDER 17 GM/1 PACKET PEG SCH (10:16)
[2017-02-21] MEDS: ENOXAPARIN SODIUM INJ 40 MG/0.4 ML DISP.SYRIN SUBCUT SCH (10:16)
[2017-02-21] MEDS: FAMOTIDINE INJ/PF 20 MG/2 ML SDV IV SCH ×2 (10:16→22:49)
[2017-02-21] MEDS: CEFEPIME 1 GM/D5W RTU 1 GM/50 ML RTUPB IV SCH ×2 (11:16→22:49)
--- NOTE | 2017-02-21 12:53 | PDOC PROGRESS REPORT ---
Subjective Progress Note for:: 02/21/17 Subjective:: Tolerating PEG tube feeding with minimal residual volume. No reported fever or decline in breathing effort since last clinical evaluation. Reason For Visit: ASPIRATION PNEUMONIA Physical Exam Vital Signs: Temp Pulse Resp BP Pulse Ox 98.2 F 63 16 119/87 H 99 02/21/17 11:17 02/21/17 12:00 02/21/17 12:00 02/21/17 11:17 02/21/17 12:00 Intake & Output 02/20/17 02/21/17 02/22/17 06:59 06:59 06:59 Intake Total 1230 1164 0 Balance 1230 1164 0 Weight 47.1 kg 47.1 kg Physical Exam: General appearance: PRESENT: no acute distress Head exam: PRESENT: atraumatic, normocephalic Mouth exam: PRESENT: moist Respiratory exam: PRESENT: crackles - scattered bilaterally, decreased breath sounds - at bases Cardiovascular exam: PRESENT: RRR. ABSENT: diastolic murmur, rubs, systolic murmur Vascular exam: PRESENT: normal capillary refill. ABSENT: pallor GI/Abdominal exam: PRESENT: normal bowel sounds, soft, other - PEG site satisfactory Musculoskeletal exam: PRESENT: deformity - extensive contracture deformities Neurological exam: PRESENT: awake - and cooperative with examination Skin exam: PRESENT: dry, warm Results Laboratory Results: 02/21/17 07:32 02/21/17 07:32 02/21/17 02/21/17 07:32 07:32 WBC 10.8 H RBC 4.14 Hgb 14.1 Hct 40.8 MCV 99 H MCH 34.0 H MCHC 34.5 RDW 13.7 Plt Count 383 Seg Neutrophils % 65.6 Lymphocytes % 22.8 Monocytes % 7.8 Eosinophils % 3.2 Basophils % 0.6 Absolute Neutrophils 7.1 Absolute Lymphocytes 2.5 Absolute Monocytes 0.8 Absolute Eosinophils 0.3 Absolute Basophils 0.1 Sodium 140.5 Potassium 4.8 Chloride 108 H Carbon Dioxide 20 L Anion Gap 13 BUN 13 Creatinine 0.35 L Est GFR ( Amer) > 60 Est GFR (Non-Af Amer) > 60 Glucose 88 Calcium 9.9 Impressions: Chest CT 02/16/17 00:00 IMPRESSION: Airspace consolidation is identified in the right mid and lower lung field which could represent atelectatic changes or pneumonic consolidation. No pleural effusions are identified. Other findings as noted above Chest X-Ray 02/18/17 00:00 IMPRESSION: Limited study as noted above. There is ill-defined increased density in the left hemithorax which could represent a developing infiltrate or atelectatic changes. 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 Is this a current diagnosis for this admission?: Yes (3) Seizure disorder Is this a current diagnosis for this admission?: Yes (4) Profound mental retardation Is this a current diagnosis for this admission?: Yes - Time Time Spent with patient: 25-34 minutes Medications reviewed and adjusted accordingly: Yes Anticipated discharge: SNF Within: Other - Inpatient Certification Based on my medical assessment, after consideration of the patient's comorbidities, presenting symptoms, or acuity I expect that the services needed warrant INPATIENT care.: Yes I certify that my determination is in accordance with my understanding of Medicare's requirements for reasonable and necessary INPATIENT services [42 CFR 412.3e].: Yes Medical Necessity: Need Close Monitoring Due to Risk of Patient Decompensation, Need For IV Fluids, Need for IV Antibiotics, Risk of Complication if Not Cared For in Hospital Post Hospital Care: D/C or Transfer Summary - Plan Summary Plan Summary: See covering attending physician orders.
[2017-02-21] MEDS: ZONISAMIDE 100 MG CAPSULE PEG SCH (22:50)
[2017-02-22] MEDS: CLINDAMYCIN 600 MG/D5W RTU 600 MG/50 ML RTUPB IV SCH ×3 (02:19→18:19)
[2017-02-22] MEDS: LANSOPRAZOLE 15 MG TAB.RAP.DR PEG SCH (05:07)
[2017-02-22 06:17] LABS: ANION GAP 11 (5-19); BLOOD UREA NITROGEN 17 mg/dL (7-20); CALCIUM 9.8 mg/dL (8.4-10.2); CARBON DIOXIDE 22 mmol/L (22-30); CHLORIDE 109 mmol/L (98-107); GLUCOSE 105 mg/dL (75-110); POTASSIUM 4.1 mmol/L (3.6-5.0); SODIUM 142.3 mmol/L (137-145)
[2017-02-22] MEDS: LEVALBUTEROL HCL NEB 1.25 MG/3 ML AMPUL NEB SCH ×4 (09:27→21:21)
[2017-02-22] MEDS: POLYETHYLENE GLYCOL 3350 POWDER 17 GM/1 PACKET PEG SCH (11:33)
[2017-02-22] MEDS: CALCIUM CARBONATE 500 MG TAB.CHEW PEG SCH (11:33)
[2017-02-22] MEDS: FAMOTIDINE INJ/PF 20 MG/2 ML SDV IV SCH ×2 (11:34→22:47)
[2017-02-22] MEDS: CEFEPIME 1 GM/D5W RTU 1 GM/50 ML RTUPB IV SCH ×2 (11:35→22:47)
[2017-02-22] MEDS: BACLOFEN 20 MG TABLET PEG SCH ×4 (11:41→22:47)
[2017-02-22] MEDS: ENOXAPARIN SODIUM INJ 40 MG/0.4 ML DISP.SYRIN SUBCUT SCH (11:42)
--- NOTE | 2017-02-22 14:37 | PDOC PROGRESS REPORT ---
Subjective Progress Note for:: 02/22/17 Subjective:: No fever. No difficulty with breathing. Tolerating PEG tube feeding without significant residual volume. Remain on IV antibiotic coverage. Reason For Visit: ASPIRATION PNEUMONIA Physical Exam Vital Signs: Temp Pulse Resp BP Pulse Ox 98.6 F 75 20 144/89 H 99 02/22/17 11:33 02/22/17 12:56 02/22/17 12:56 02/22/17 11:33 02/22/17 12:56 Intake & Output 02/21/17 02/22/17 02/23/17 06:59 06:59 06:59 Intake Total 1164 240 Balance 1164 240 Weight 47.1 kg Physical Exam: General appearance: PRESENT: no acute distress Head exam: PRESENT: atraumatic, normocephalic Mouth exam: PRESENT: moist Respiratory exam: PRESENT: crackles - scattered bilaterally, decreased breath sounds - at bases Cardiovascular exam: PRESENT: RRR. ABSENT: diastolic murmur, rubs, systolic murmur Vascular exam: PRESENT: normal capillary refill. ABSENT: pallor GI/Abdominal exam: PRESENT: normal bowel sounds, soft, other - PEG site satisfactory Musculoskeletal exam: PRESENT: deformity - extensive contracture deformities Neurological exam: PRESENT: awake - and cooperative with examination Skin exam: PRESENT: dry, warm Results Laboratory Results: 02/21/17 07:32 02/22/17 05:20 02/22/17 05:20 Sodium 142.3 Potassium 4.1 Chloride 109 H Carbon Dioxide 22 Anion Gap 11 BUN 17 Creatinine 0.40 L Est GFR ( Amer) > 60 Est GFR (Non-Af Amer) > 60 Glucose 105 Calcium 9.8 02/16/17 17:15 Blood Blood Culture - Final NO GROWTH IN 5 DAYS 02/16/17 15:20 Blood Blood Culture - Final NO GROWTH IN 5 DAYS Impressions: Chest CT 02/16/17 00:00 IMPRESSION: Airspace consolidation is identified in the right mid and lower lung field which could represent atelectatic changes or pneumonic consolidation. No pleural effusions are identified. Other findings as noted above Chest X-Ray 02/18/17 00:00 IMPRESSION: Limited study as noted above. There is ill-defined increased density in the left hemithorax which could represent a developing infiltrate or atelectatic changes. 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 Is this a current diagnosis for this admission?: Yes (3) Seizure disorder Is this a current diagnosis for this admission?: Yes (4) Profound mental retardation Is this a current diagnosis for this admission?: Yes - Time Time Spent with patient: 25-34 minutes Medications reviewed and adjusted accordingly: Yes Anticipated discharge: SNF Within: Other - Inpatient Certification Based on my medical assessment, after consideration of the patient's comorbidities, presenting symptoms, or acuity I expect that the services needed warrant INPATIENT care.: Yes I certify that my determination is in accordance with my understanding of Medicare's requirements for reasonable and necessary INPATIENT services [42 CFR 412.3e].: Yes Medical Necessity: Need Close Monitoring Due to Risk of Patient Decompensation, Need For IV Fluids, Need For Continuous Telemetry Monitoring, Need for IV Antibiotics, Risk of Complication if Not Cared For in Hospital Post Hospital Care: D/C or Transfer Summary - Plan Summary Plan Summary: See covering attending physician orders.
[2017-02-22] MEDS: ZONISAMIDE 100 MG CAPSULE PEG SCH (22:47)
[2017-02-23] MEDS: CLINDAMYCIN 600 MG/D5W RTU 600 MG/50 ML RTUPB IV SCH ×2 (02:15→11:24)
[2017-02-23] MEDS: LANSOPRAZOLE 15 MG TAB.RAP.DR PEG SCH (05:25)
[2017-02-23] MEDS: LEVALBUTEROL HCL NEB 1.25 MG/3 ML AMPUL NEB SCH ×4 (08:22→20:45)
--- NOTE | 2017-02-23 11:08 | PDOC PROGRESS REPORT ---
Subjective Progress Note for:: 02/23/17 Subjective:: Patient is currently doing fair No events happens the weekends and no fever Reason For Visit: ASPIRATION PNEUMONIA Physical Exam Vital Signs: Temp Pulse Resp BP Pulse Ox 97.6 F 99 16 157/91 H 93 02/23/17 07:53 02/23/17 08:22 02/23/17 08:22 02/23/17 07:53 02/23/17 08:22 Intake & Output 02/22/17 02/23/17 02/24/17 06:59 06:59 06:59 Intake Total 240 900 Balance 240 900 Weight 43.9 kg General appearance: PRESENT: no acute distress Eye exam: PRESENT: PERRLA Mouth exam: PRESENT: neck supple Respiratory exam: PRESENT: decreased breath sounds Cardiovascular exam: PRESENT: +S1, +S2 GI/Abdominal exam: PRESENT: normal bowel sounds, soft Extremities exam: ABSENT: pedal edema Neurological exam: PRESENT: alert, awake Results Laboratory Results: 02/21/17 07:32 02/22/17 05:20 Impressions: Chest X-Ray 02/18/17 00:00 IMPRESSION: Limited study as noted above. There is ill-defined increased density in the left hemithorax which could represent a developing infiltrate or atelectatic changes. Other findings as noted above Assessment & Plan - Diagnosis (1) Aspiration pneumonia Qualifiers: Aspiration pneumonia type: unspecified Laterality: unspecified laterality Is this a current diagnosis for this admission?: Yes Plan: Continues to IV antibiotic (2) Leukocytosis Qualifiers: Leukocytosis type: bandemia Qualified Code(s): D72.825 - Bandemia Is this a current diagnosis for this admission?: Yes Plan: Most likely coming from the S patient's pneumonia (3) Respiratory distress Is this a current diagnosis for this admission?: No Plan: Currently all stable (4) Profound mental retardation Is this a current diagnosis for this admission?: Yes (5) Seizure disorder Is this a current diagnosis for this admission?: Yes Plan: Continues to current seizures medications - Time Time Spent with patient: 15-24 minutes Medications reviewed and adjusted accordingly: Yes Anticipated discharge: Other Within: Other - Inpatient Certification Medical Necessity: Need Close Monitoring Due to Risk of Patient Decompensation, Need for IV Antibiotics Post Hospital Care: D/C It Intern Documentation - Plan Summary Plan Summary: Plan to repeat the CT of the chest and if it looks all stable discharge tomorrow morning with oral antibiotic
[2017-02-23] MEDS: FAMOTIDINE INJ/PF 20 MG/2 ML SDV IV SCH ×2 (11:24→21:02)
[2017-02-23] MEDS: ENOXAPARIN SODIUM INJ 40 MG/0.4 ML DISP.SYRIN SUBCUT SCH (11:24)
[2017-02-23] MEDS: BACLOFEN 20 MG TABLET PEG SCH ×4 (11:24→21:03)
[2017-02-23] MEDS: POLYETHYLENE GLYCOL 3350 POWDER 17 GM/1 PACKET PEG SCH (11:25)
[2017-02-23] MEDS: CALCIUM CARBONATE 500 MG TAB.CHEW PEG SCH (11:25)
--- NOTE | 2017-02-23 12:16 | RADIOLOGY REPORT (SQ) ---
EXAM DESCRIPTION: CT CHEST WITHOUT COMPLETED DATE/TIME: 02/23/2017 10:23 am REASON FOR STUDY: Aspiration pneumonia COMPARISON: 02/16/2017. TECHNIQUE: CT scan performed of the chest without intravenous contrast. Images reviewed with lung, soft tissue and bone windows. Reconstructed coronal and sagittal MPR images reviewed. All images st ored on PACS. All CT scanners at this facility use dose modulation, iterative reconstruction, and/or weight based d osing when appropriate to reduce radiation dose to as low as reasonably achievable (ALARA). [facility]: Dose Right [facility]: CareDose [facility]: Dose Right [facility]: Teradose 4D [facility]: [employer] RADIATION DOSE: CT Rad equipment meets quality standard of care and radiation dose reduction techniq ues were employed. CTDIvol: 8.4 mGy. DLP: 231 mGy-cm. mGy. LIMITATIONS: No technical limitations. FINDINGS: LUNGS AND PLEURA: Faint minimal hazy densities throughout both lungs. Areas of consolidat ion in the right lung have improved with residual streaky linear changes. No pleural effusion. No p neumothorax. HILAR AND MEDIASTINAL STRUCTURES: No identified masses or abnormal nodes. No obvious aneurysm. HEART AND VASCULAR STRUCTURES: No aneurysm. No pericardial effusion. UPPER ABDOMEN: Gastrostomy tube. Limited exam. THYROID AND OTHER SOFT TISSUES: No masses. No adenopathy. BONES: Chronic changes in the spine with scoliosis. HARDWARE: None in the chest. OTHER: No other significant findings. IMPRESSION: IMPROVEMENT IN THE AREAS OF CONSOLIDATION IN THE RIGHT LUNG. FAINT MINIMAL HAZY DENSITI ES PROBABLY DUE TO ATELECTASIS. TECHNICAL DOCUMENTATION: JOB ID: [id number] Quality ID # [id number]: Final reports with documentation of one or more dose reduction techniques (e.g., Au tomated exposure control, adjustment of the mA and/or kV according to patient size, use of iterative reconstruction technique) 2010 [employer]- All Rights Reserved
[2017-02-23] MEDS: CEFEPIME 1 GM/D5W RTU 1 GM/50 ML RTUPB IV SCH (13:35)
[2017-02-23] MEDS ORDERED: LABETALOL HCL INJ 20 MG/4 ML DISP.SYRIN IV PRN (20:19)
[2017-02-23] MEDS: ACETAMINOPHEN 325 MG TABLET PO PRN (20:29)
[2017-02-23] MEDS ORDERED: LEVALBUTEROL HCL NEB 1.25 MG/3 ML AMPUL NEB ONE (20:45)
[2017-02-23] MEDS: ZONISAMIDE 100 MG CAPSULE PEG SCH (21:03)
[2017-02-24] MEDS: ACETAMINOPHEN 325 MG TABLET PO PRN ×2 (03:25→21:29)
[2017-02-24] MEDS: LANSOPRAZOLE 15 MG TAB.RAP.DR PEG SCH (05:16)
[2017-02-24] MEDS: LEVALBUTEROL HCL NEB 1.25 MG/3 ML AMPUL NEB SCH ×4 (08:58→20:36)
--- NOTE | 2017-02-24 09:15 | PDOC PROGRESS REPORT ---
Subjective Progress Note for:: 02/24/17 Subjective:: Patient CT of the chest is all improving but the last night the nurses call regarding the patient's having some agitations and elevated blood pressures This is also noticed that the patient unable to urinate but is very hard to evaluate because of the patient is incontinent and patient was straight cath was done was only 50 mL comes There is no nausea no vomiting no throwing up episodes Last night the nurses concern about some abdominal distention's but I do not appreciate this morningThe tube feeding was hold last night Reason For Visit: ASPIRATION PNEUMONIA Physical Exam Vital Signs: Temp Pulse Resp BP Pulse Ox 97.9 F 91 13 135/87 H 100 02/24/17 03:52 02/24/17 03:52 02/24/17 03:52 02/24/17 03:52 02/24/17 03:52 Intake & Output 02/23/17 02/24/17 02/25/17 06:59 06:59 06:59 Intake Total 900 747 Output Total 50 Balance 900 697 Weight 43.9 kg 44.3 kg General appearance: PRESENT: no acute distress Eye exam: PRESENT: PERRLA Cardiovascular exam: PRESENT: +S1, +S2 GI/Abdominal exam: PRESENT: normal bowel sounds, soft Additonal comments: G-tube is present Extremities exam: ABSENT: pedal edema Neurological exam: PRESENT: alert Results Laboratory Results: 02/21/17 07:32 02/22/17 05:20 Impressions: Chest X-Ray 02/18/17 00:00 IMPRESSION: Limited study as noted above. There is ill-defined increased density in the left hemithorax which could represent a developing infiltrate or atelectatic changes. Other findings as noted above Chest CT 02/23/17 00:00 IMPRESSION: IMPROVEMENT IN THE AREAS OF CONSOLIDATION IN THE RIGHT LUNG. FAINT MINIMAL HAZY DENSITIES PROBABLY DUE TO ATELECTASIS. Assessment & Plan - Diagnosis (1) Aspiration pneumonia Qualifiers: Aspiration pneumonia type: unspecified Laterality: unspecified laterality Is this a current diagnosis for this admission?: Yes Plan: Continues to IV antibiotics I think we switch to the p.o. antibiotic once we rule out the GI issue (2) Leukocytosis Qualifiers: Leukocytosis type: bandemia Qualified Code(s): D72.825 - Bandemia Is this a current diagnosis for this admission?: Yes Plan: Currently all stable (3) Respiratory distress Is this a current diagnosis for this admission?: No Plan: Currently all stable (4) Profound mental retardation Is this a current diagnosis for this admission?: Yes (5) Seizure disorder Is this a current diagnosis for this admission?: Yes Plan: Continues to current seizures medications - Time Time Spent with patient: 15-24 minutes Medications reviewed and adjusted accordingly: Yes Anticipated discharge: SNF Within: Other - Inpatient Certification Medical Necessity: Need Close Monitoring Due to Risk of Patient Decompensation Post Hospital Care: D/C Managing Consultant Documentation - Plan Summary Plan Summary: We will get the CT abdomen pelvis and the blood work today
[2017-02-24 11:23] LABS: ABSOLUTE EOSINOPHILS # (AUTO) 0.4 10^3/uL (0.0-0.6); ABSOLUTE LYMPHOCYTES (AUTO) 2.3 10^3/uL (0.5-4.7); ABSOLUTE MONOCYTES (AUTO) 0.9 10^3/uL (0.1-1.4); ABSOLUTE NEUT (AUTO) 4.8 10^3/uL (1.7-8.2); BASOPHILS % (AUTO) 0.5 % (0-2); EOSINOPHILS % (AUTO) 4.2 % (0-6); HEMATOCRIT 41.8 % (36.0-47.0); HEMOGLOBIN 14.2 g/dL (12.0-15.5); LYMPHOCYTES % (AUTO) 27.6 % (13-45); MEAN CORPUSCULAR HEMOGLOBIN 33.7 pg (27.0-33.4); MEAN CORPUSCULAR HGB CONC 33.9 g/dL (32.0-36.0); MEAN CORPUSCULAR VOLUME 99 fl (80-97); MONOCYTES % (AUTO) 10.8 % (3-13); PLATELET COUNT 446 10^3/uL (150-450); RED CELL DISTRIBUTION WIDTH 13.8 % (11.5-14.0); SEGMENTED NEUTROPHILS % (AUTO) 56.9 % (42-78); TOTAL CELLS COUNTED % (AUTO) 100 %; WHITE BLOOD COUNT 8.4 10^3/uL (4.0-10.5)
[2017-02-24] MEDS: BACLOFEN 20 MG TABLET PEG SCH ×4 (11:43→21:29)
[2017-02-24 11:44] LABS: ANION GAP 13 (5-19); BLOOD UREA NITROGEN 17 mg/dL (7-20); CALCIUM 10.5 mg/dL (8.4-10.2); CARBON DIOXIDE 23 mmol/L (22-30); CHLORIDE 107 mmol/L (98-107); GLUCOSE 81 mg/dL (75-110); POTASSIUM 4.6 mmol/L (3.6-5.0); SODIUM 143.4 mmol/L (137-145)
[2017-02-24] MEDS: CALCIUM CARBONATE 500 MG TAB.CHEW PEG SCH (11:44)
[2017-02-24] MEDS: POLYETHYLENE GLYCOL 3350 POWDER 17 GM/1 PACKET PEG SCH (11:44)
[2017-02-24] MEDS: FAMOTIDINE INJ/PF 20 MG/2 ML SDV IV SCH ×2 (11:45→21:29)
[2017-02-24] MEDS: ENOXAPARIN SODIUM INJ 40 MG/0.4 ML DISP.SYRIN SUBCUT SCH (11:45)
--- NOTE | 2017-02-24 11:47 | RADIOLOGY REPORT (SQ) ---
EXAM DESCRIPTION: CT ABD/PELVIS NO ORAL OR IV COMPLETED DATE/TIME: 02/24/2017 10:50 am REASON FOR STUDY: abd distenstion COMPARISON: CT chest 02/23/2017, 02/16/2017 CT abdomen pelvis 07/25/2014, 08/31/2007 TECHNIQUE: CT scan of the abdomen and pelvis performed without intravenous or oral contrast. Images reviewed with lung, soft tissue, and bone windows. Reconstructed coronal and sagittal MPR images revi ewed. All images stored on PACS. All CT scanners at this facility use dose modulation, iterative reconstruction, and/or weight based d osing when appropriate to reduce radiation dose to as low as reasonably achievable (ALARA). [facility]: Dose Right [facility]: CareDose [facility]: Dose Right [facility]: Teradose 4D [facility]: [employer] RADIATION DOSE: CT Rad equipment meets quality standard of care and radiation dose reduction techniq ues were employed. CTDIvol: 5.0 mGy. DLP: 200 mGy-cm.mGy. LIMITATIONS: Distorted anatomy from accentuated convex leftward thoracolumbar curvature. FINDINGS: LOWER CHEST: No significant findings. No nodules or infiltrates. NON-CONTRASTED LIVER, SPLEEN, ADRENALS: Evaluation limited by lack of IV contrast. No identified sign ificant masses. PANCREAS: No masses. No peripancreatic inflammatory changes. GALLBLADDER: No identified stones by CT criteria. No inflammatory changes to suggest cholecystitis. RIGHT KIDNEY AND URETER: No suspicious masses. Assessment limited by lack of IV contrast. No signif icant calcifications. No hydronephrosis or hydroureter. LEFT KIDNEY AND URETER: No suspicious masses. Assessment limited by lack of IV contrast. No signifi cant calcifications. No hydronephrosis or hydroureter. AORTA AND RETROPERITONEUM: No aneurysm. No retroperitoneal masses or adenopathy. BOWEL AND PERITONEAL CAVITY: No obvious masses or inflammatory changes. No free fluid. APPENDIX: Not identified PELVIS, BLADDER, AND ABDOMINAL WALL:No abnormal masses. No free fluid. Bladder normal. BONES: No significant findings. OTHER: Patient has a gastrojejunostomy tube. Balloon is in the duodenojejunal junction, unchanged fr om multiple previous studies IMPRESSION: NO SIGNIFICANT OR ACUTE PROCESS IN THE ABDOMEN OR PELVIS. COMMENT: Quality ID # [id number]: Final reports with documentation of one or more dose reduction techniques (e.g., Automated exposure control, adjustment of the mA and/or kV according to patient size, use of iterative reconstruction technique) TECHNICAL DOCUMENTATION: JOB ID: [id number]- All Rights Reserved
[2017-02-24] MEDS ORDERED: CARBAMAZEPINE SUSP 200 MG/10 ML UDCUP GT ONE (15:30)
[2017-02-24] MEDS: ZONISAMIDE 100 MG CAPSULE PEG SCH (21:29)
[2017-02-24] MEDS: CARBAMAZEPINE SUSP 200 MG/10 ML UDCUP GT SCH (21:29)
[2017-02-25] MEDS: LANSOPRAZOLE 15 MG TAB.RAP.DR PEG SCH (05:28)
[2017-02-25] MEDS: CARBAMAZEPINE SUSP 200 MG/10 ML UDCUP GT SCH ×3 (05:28→22:43)
[2017-02-25] MEDS: LEVALBUTEROL HCL NEB 1.25 MG/3 ML AMPUL NEB SCH ×4 (09:28→21:50)
[2017-02-25] MEDS: POLYETHYLENE GLYCOL 3350 POWDER 17 GM/1 PACKET PEG SCH (09:50)
[2017-02-25] MEDS: CALCIUM CARBONATE 500 MG TAB.CHEW PEG SCH (09:50)
[2017-02-25] MEDS: ENOXAPARIN SODIUM INJ 40 MG/0.4 ML DISP.SYRIN SUBCUT SCH (09:50)
[2017-02-25] MEDS: FAMOTIDINE INJ/PF 20 MG/2 ML SDV IV SCH ×2 (09:50→22:43)
[2017-02-25] MEDS: BACLOFEN 20 MG TABLET PEG SCH ×4 (09:50→22:43)
--- NOTE | 2017-02-25 10:57 | PDOC PROGRESS REPORT ---
Subjective Progress Note for:: 02/25/17 Subjective:: Patient is currently doing fair No other events happened No fever Reason For Visit: ASPIRATION PNEUMONIA Physical Exam Vital Signs: Temp Pulse Resp BP Pulse Ox 98.0 F 96 18 114/72 96 02/25/17 07:41 02/25/17 08:25 02/25/17 08:25 02/25/17 07:41 02/25/17 08:25 Intake & Output 02/24/17 02/25/17 02/26/17 06:59 06:59 06:59 Intake Total 747 2171 Output Total 50 Balance 697 2171 Weight 44.3 kg 34.7 kg General appearance: PRESENT: no acute distress Eye exam: PRESENT: PERRLA Mouth exam: PRESENT: dry mucosa Neck exam: ABSENT: JVD Respiratory exam: PRESENT: clear to auscultation abeba Cardiovascular exam: PRESENT: +S1, +S2 GI/Abdominal exam: PRESENT: normal bowel sounds, soft Extremities exam: ABSENT: pedal edema Neurological exam: PRESENT: alert Results Laboratory Results: 02/24/17 10:35 02/24/17 10:35 02/24/17 02/24/17 10:35 10:35 WBC 8.4 RBC 4.20 Hgb 14.2 Hct 41.8 MCV 99 H MCH 33.7 H MCHC 33.9 RDW 13.8 Plt Count 446 Seg Neutrophils % 56.9 Lymphocytes % 27.6 Monocytes % 10.8 Eosinophils % 4.2 Basophils % 0.5 Absolute Neutrophils 4.8 Absolute Lymphocytes 2.3 Absolute Monocytes 0.9 Absolute Eosinophils 0.4 Absolute Basophils 0.0 Sodium 143.4 Potassium 4.6 Chloride 107 Carbon Dioxide 23 Anion Gap 13 BUN 17 Creatinine 0.39 L Est GFR ( Amer) > 60 Est GFR (Non-Af Amer) > 60 Glucose 81 Calcium 10.5 H 02/24/17 21:25 Sputum Gram Stain - Final Impressions: Chest X-Ray 02/18/17 00:00 IMPRESSION: Limited study as noted above. There is ill-defined increased density in the left hemithorax which could represent a developing infiltrate or atelectatic changes. Other findings as noted above Chest CT 02/23/17 00:00 IMPRESSION: IMPROVEMENT IN THE AREAS OF CONSOLIDATION IN THE RIGHT LUNG. FAINT MINIMAL HAZY DENSITIES PROBABLY DUE TO ATELECTASIS. Abdomen/Pelvis CT 02/24/17 00:00 IMPRESSION: NO SIGNIFICANT OR ACUTE PROCESS IN THE ABDOMEN OR PELVIS. Assessment & Plan - Diagnosis (1) Aspiration pneumonia Qualifiers: Aspiration pneumonia type: unspecified Laterality: unspecified laterality Is this a current diagnosis for this admission?: Yes Plan: Switch to the p.o. Bactrim (2) Leukocytosis Qualifiers: Leukocytosis type: bandemia Qualified Code(s): D72.825 - Bandemia Is this a current diagnosis for this admission?: Yes Plan: Currently all resolved (3) Respiratory distress Is this a current diagnosis for this admission?: No Plan: the nebulizer treatment (4) Profound mental retardation Is this a current diagnosis for this admission?: Yes (5) Seizure disorder Is this a current diagnosis for this admission?: Yes Plan: Continues to current seizures medications - Time Time Spent with patient: 15-24 minutes Medications reviewed and adjusted accordingly: Yes Anticipated discharge: SNF Within: within 24 hours - Inpatient Certification Medical Necessity: Need Close Monitoring Due to Risk of Patient Decompensation Post Hospital Care: 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
[2017-02-25] MEDS ORDERED: ACETYLCYSTEINE 20% SOLN 800 MG/4 ML VIAL.NEB NEB ONE (11:00)
[2017-02-25] MEDS ORDERED: SULFAMETHOXAZOLE/TRIMETHOPRIM 800-160 MG/20 ML UDCUP PO ONE (12:00)
[2017-02-25] MEDS: ACETYLCYSTEINE 20% SOLN 800 MG/4 ML VIAL.NEB NEB SCH (21:50)
[2017-02-25] MEDS: ACETAMINOPHEN 325 MG TABLET PO PRN (22:44)
[2017-02-25] MEDS: ZONISAMIDE 100 MG CAPSULE PEG SCH (22:44)
[2017-02-25] MEDS: SULFAMETHOXAZOLE/TRIMETHOPRIM 800-160 MG/20 ML UDCUP PO SCH (22:44)
[2017-02-26] MEDS: LANSOPRAZOLE 15 MG TAB.RAP.DR PEG SCH (07:06)
[2017-02-26] MEDS: CARBAMAZEPINE SUSP 200 MG/10 ML UDCUP GT SCH ×3 (07:06→23:55)
[2017-02-26] MEDS: ACETYLCYSTEINE 20% SOLN 800 MG/4 ML VIAL.NEB NEB SCH ×2 (07:41→20:47)
[2017-02-26] MEDS: LEVALBUTEROL HCL NEB 1.25 MG/3 ML AMPUL NEB SCH ×4 (07:42→20:47)
--- NOTE | 2017-02-26 10:14 | PDOC PROGRESS REPORT ---
Subjective Progress Note for:: 02/26/17 Subjective:: Patient is currently doing fair No other events happened No fever Reason For Visit: ASPIRATION PNEUMONIA Physical Exam Vital Signs: Temp Pulse Resp BP Pulse Ox 98.6 F 109 H 18 128/85 H 99 02/26/17 08:16 02/26/17 08:16 02/26/17 07:41 02/26/17 08:16 02/26/17 08:16 Intake & Output 02/25/17 02/26/17 02/27/17 06:59 06:59 06:59 Intake Total 2171 1900 Balance 2171 1900 Weight 34.7 kg 45.4 kg General appearance: PRESENT: no acute distress Eye exam: PRESENT: PERRLA Mouth exam: PRESENT: neck supple Respiratory exam: PRESENT: clear to auscultation abeba Cardiovascular exam: PRESENT: +S1, +S2 Extremities exam: ABSENT: pedal edema Results Laboratory Results: 02/24/17 10:35 02/24/17 10:35 02/24/17 21:25 Sputum Gram Stain - Final Impressions: Chest X-Ray 02/18/17 00:00 IMPRESSION: Limited study as noted above. There is ill-defined increased density in the left hemithorax which could represent a developing infiltrate or atelectatic changes. Other findings as noted above Chest CT 02/23/17 00:00 IMPRESSION: IMPROVEMENT IN THE AREAS OF CONSOLIDATION IN THE RIGHT LUNG. FAINT MINIMAL HAZY DENSITIES PROBABLY DUE TO ATELECTASIS. Abdomen/Pelvis CT 02/24/17 00:00 IMPRESSION: NO SIGNIFICANT OR ACUTE PROCESS IN THE ABDOMEN OR PELVIS. Assessment & Plan - Diagnosis (1) Aspiration pneumonia Qualifiers: Aspiration pneumonia type: unspecified Laterality: unspecified laterality Is this a current diagnosis for this admission?: Yes Plan: Switch to the p.o. Bactrim (2) Leukocytosis Qualifiers: Leukocytosis type: bandemia Qualified Code(s): D72.825 - Bandemia Is this a current diagnosis for this admission?: Yes Plan: Currently all resolved (3) Respiratory distress Is this a current diagnosis for this admission?: No Plan: the nebulizer treatment (4) Profound mental retardation Is this a current diagnosis for this admission?: Yes (5) Seizure disorder Is this a current diagnosis for this admission?: Yes Plan: Continues to current seizures medications - Time Time Spent with patient: 15-24 minutes Medications reviewed and adjusted accordingly: Yes Anticipated discharge: SNF Within: Other - Inpatient Certification Medical Necessity: Need Close Monitoring Due to Risk of Patient Decompensation 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 antibiotic plan to discharge tomorrow to the [facility]
[2017-02-26] MEDS: POLYETHYLENE GLYCOL 3350 POWDER 17 GM/1 PACKET PEG SCH (10:40)
[2017-02-26] MEDS: SULFAMETHOXAZOLE/TRIMETHOPRIM 800-160 MG/20 ML UDCUP PO SCH ×2 (10:41→23:55)
[2017-02-26] MEDS: BACLOFEN 20 MG TABLET PEG SCH ×4 (10:41→23:41)
[2017-02-26] MEDS: ENOXAPARIN SODIUM INJ 40 MG/0.4 ML DISP.SYRIN SUBCUT SCH (10:41)
[2017-02-26] MEDS: CALCIUM CARBONATE 500 MG TAB.CHEW PEG SCH (10:41)
[2017-02-26] MEDS: FAMOTIDINE INJ/PF 20 MG/2 ML SDV IV SCH ×2 (10:41→23:54)
--- NOTE | 2017-02-26 13:36 | PDOC PROGRESS REPORT ---
Subjective Progress Note for:: 02/23/17 Subjective:: awake Reason For Visit: ASPIRATION PNEUMONIA Physical Exam Vital Signs: Temp Pulse Resp BP Pulse Ox 97.6 F 77 14 157/91 H 93 02/23/17 07:53 02/23/17 11:13 02/23/17 11:13 02/23/17 07:53 02/23/17 08:22 Intake & Output 02/22/17 02/23/17 02/24/17 06:59 06:59 06:59 Intake Total 240 900 Balance 240 900 Weight 43.9 kg General appearance: PRESENT: disheveled Eye exam: PRESENT: conjunctiva pale. ABSENT: conjunctival injection, conjunctiva pink, EOMI, scleral icterus Mouth exam: PRESENT: moist, neck supple, tongue midline Neck exam: PRESENT: tracheal deviation - mild. ABSENT: carotid bruit, JVD, lymphadenopathy, thyromegaly, tracheostomy Respiratory exam: PRESENT: decreased breath sounds, prolonged expiratory phas, rhonchi, symmetrical, unlabored. ABSENT: accessory muscle use, chest wall tenderness, clear to auscultation abeba, crackles, rales, retraction, stridor, tachypnea Cardiovascular exam: PRESENT: RRR, +S1, +S2. ABSENT: rubs Pulses: PRESENT: normal radial pulses GI/Abdominal exam: PRESENT: normal bowel sounds, soft. ABSENT: distended, guarding, mass, organolmegaly, rebound, tenderness Extremities exam: ABSENT: clubbing, joint swelling Musculoskeletal exam: ABSENT: ambulatory, dislocation Neurological exam: PRESENT: awake. ABSENT: oriented to person, oriented to place, oriented to time, oriented to situation Skin exam: PRESENT: dry Results Laboratory Results: 02/21/17 07:32 02/22/17 05:20 Impressions: Chest X-Ray 02/18/17 00:00 IMPRESSION: Limited study as noted above. There is ill-defined increased density in the left hemithorax which could represent a developing infiltrate or atelectatic changes. Other findings as noted above Chest CT 02/23/17 00:00 IMPRESSION: IMPROVEMENT IN THE AREAS OF CONSOLIDATION IN THE RIGHT LUNG. FAINT MINIMAL HAZY DENSITIES PROBABLY DUE TO ATELECTASIS. Assessment & Plan - Diagnosis (1) Aspiration pneumonia Qualifiers: Aspiration pneumonia type: unspecified Laterality: unspecified laterality Is this a current diagnosis for this admission?: Yes Plan: Keep patient in reverse Trendelenburg at all times right middle and lower lobes (2) Profound mental retardation Is this a current diagnosis for this admission?: Yes Plan: Unchanged (3) Respiratory distress Is this a current diagnosis for this admission?: No (4) Seizure disorder Is this a current diagnosis for this admission?: Yes Plan: no activity reported
--- NOTE | 2017-02-26 13:38 | PDOC PROGRESS REPORT ---
Subjective Progress Note for:: 02/24/17 Subjective:: awake Reason For Visit: ASPIRATION PNEUMONIA Physical Exam Vital Signs: Temp Pulse Resp BP Pulse Ox 98.3 F 82 14 137/89 H 100 02/24/17 12:26 02/24/17 17:32 02/24/17 17:32 02/24/17 12:26 02/24/17 12:26 Intake & Output 02/23/17 02/24/17 02/25/17 06:59 06:59 06:59 Intake Total 900 747 100 Output Total 50 Balance 900 697 100 Weight 43.9 kg 44.3 kg General appearance: PRESENT: no acute distress, disheveled, well-nourished. ABSENT: cooperative, mild distress, morbidly obese, obese, severe distress Head exam: PRESENT: atraumatic Eye exam: PRESENT: conjunctiva pale, EOMI. ABSENT: conjunctival injection, conjunctiva pink Mouth exam: PRESENT: dry mucosa, neck supple, tongue midline. ABSENT: laceration, moist Neck exam: PRESENT: tracheal deviation. ABSENT: carotid bruit, JVD, lymphadenopathy, thyromegaly, tracheostomy Respiratory exam: PRESENT: crackles, decreased breath sounds, prolonged expiratory phas, rhonchi, symmetrical, unlabored, wheezes. ABSENT: accessory muscle use, chest wall tenderness, clear to auscultation abeba, retraction, stridor, tachypnea Cardiovascular exam: PRESENT: RRR, +S1, +S2 Pulses: PRESENT: normal radial pulses GI/Abdominal exam: PRESENT: normal bowel sounds, soft. ABSENT: distended, guarding, mass, organolmegaly, rebound, tenderness Extremities exam: ABSENT: clubbing, joint swelling Musculoskeletal exam: PRESENT: deformity. ABSENT: ambulatory, dislocation, full ROM, normal inspection Neurological exam: PRESENT: awake. ABSENT: alert Skin exam: PRESENT: dry, warm Results Laboratory Results: 02/24/17 10:35 02/24/17 10:35 02/24/17 02/24/17 10:35 10:35 WBC 8.4 RBC 4.20 Hgb 14.2 Hct 41.8 MCV 99 H MCH 33.7 H MCHC 33.9 RDW 13.8 Plt Count 446 Seg Neutrophils % 56.9 Lymphocytes % 27.6 Monocytes % 10.8 Eosinophils % 4.2 Basophils % 0.5 Absolute Neutrophils 4.8 Absolute Lymphocytes 2.3 Absolute Monocytes 0.9 Absolute Eosinophils 0.4 Absolute Basophils 0.0 Sodium 143.4 Potassium 4.6 Chloride 107 Carbon Dioxide 23 Anion Gap 13 BUN 17 Creatinine 0.39 L Est GFR ( Amer) > 60 Est GFR (Non-Af Amer) > 60 Glucose 81 Calcium 10.5 H Impressions: Chest X-Ray 02/18/17 00:00 IMPRESSION: Limited study as noted above. There is ill-defined increased density in the left hemithorax which could represent a developing infiltrate or atelectatic changes. Other findings as noted above Chest CT 02/23/17 00:00 IMPRESSION: IMPROVEMENT IN THE AREAS OF CONSOLIDATION IN THE RIGHT LUNG. FAINT MINIMAL HAZY DENSITIES PROBABLY DUE TO ATELECTASIS. Abdomen/Pelvis CT 02/24/17 00:00 IMPRESSION: NO SIGNIFICANT OR ACUTE PROCESS IN THE ABDOMEN OR PELVIS. Assessment & Plan - Diagnosis (1) Aspiration pneumonia Qualifiers: Aspiration pneumonia type: unspecified Laterality: unspecified laterality Is this a current diagnosis for this admission?: Yes Plan: Keep patient in reverse Trendelenburg at all times right middle and lower lobes (2) Profound mental retardation Is this a current diagnosis for this admission?: Yes Plan: Unchanged (3) Respiratory distress Is this a current diagnosis for this admission?: No (4) Seizure disorder Is this a current diagnosis for this admission?: Yes Plan: no activity reported
--- NOTE | 2017-02-26 13:40 | PDOC PROGRESS REPORT ---
Subjective Progress Note for:: 02/25/17 Subjective:: awake Reason For Visit: ASPIRATION PNEUMONIA Physical Exam Vital Signs: Temp Pulse Resp BP Pulse Ox 98.0 F 96 18 114/72 96 02/25/17 07:41 02/25/17 08:25 02/25/17 08:25 02/25/17 07:41 02/25/17 08:25 Intake & Output 02/24/17 02/25/17 02/26/17 06:59 06:59 06:59 Intake Total 747 2171 Output Total 50 Balance 697 2171 Weight 44.3 kg 34.7 kg General appearance: PRESENT: no acute distress, disheveled, well-nourished. ABSENT: cooperative, mild distress, morbidly obese Head exam: PRESENT: atraumatic Eye exam: PRESENT: conjunctiva pale. ABSENT: conjunctival injection, conjunctiva pink, nystagmus Mouth exam: PRESENT: dry mucosa, neck supple. ABSENT: laceration, moist Teeth exam: PRESENT: poor dentation Neck exam: PRESENT: tracheal deviation. ABSENT: carotid bruit, JVD, lymphadenopathy, thyromegaly, tracheostomy Respiratory exam: PRESENT: decreased breath sounds, prolonged expiratory phas, rales, rhonchi, symmetrical, unlabored, wheezes. ABSENT: accessory muscle use, chest wall tenderness, clear to auscultation abeba, crackles, retraction, stridor , tachypnea Cardiovascular exam: PRESENT: RRR, +S1, +S2 Pulses: PRESENT: normal radial pulses GI/Abdominal exam: PRESENT: other - peg tube Extremities exam: ABSENT: clubbing, joint swelling Musculoskeletal exam: ABSENT: ambulatory, dislocation, full ROM, normal inspection Neurological exam: PRESENT: awake Skin exam: PRESENT: dry, warm Results Laboratory Results: 02/24/17 10:35 02/24/17 10:35 02/24/17 02/24/17 10:35 10:35 WBC 8.4 RBC 4.20 Hgb 14.2 Hct 41.8 MCV 99 H MCH 33.7 H MCHC 33.9 RDW 13.8 Plt Count 446 Seg Neutrophils % 56.9 Lymphocytes % 27.6 Monocytes % 10.8 Eosinophils % 4.2 Basophils % 0.5 Absolute Neutrophils 4.8 Absolute Lymphocytes 2.3 Absolute Monocytes 0.9 Absolute Eosinophils 0.4 Absolute Basophils 0.0 Sodium 143.4 Potassium 4.6 Chloride 107 Carbon Dioxide 23 Anion Gap 13 BUN 17 Creatinine 0.39 L Est GFR ( Amer) > 60 Est GFR (Non-Af Amer) > 60 Glucose 81 Calcium 10.5 H 02/24/17 21:25 Sputum Gram Stain - Final Impressions: Chest X-Ray 02/18/17 00:00 IMPRESSION: Limited study as noted above. There is ill-defined increased density in the left hemithorax which could represent a developing infiltrate or atelectatic changes. Other findings as noted above Chest CT 02/23/17 00:00 IMPRESSION: IMPROVEMENT IN THE AREAS OF CONSOLIDATION IN THE RIGHT LUNG. FAINT MINIMAL HAZY DENSITIES PROBABLY DUE TO ATELECTASIS. Abdomen/Pelvis CT 02/24/17 00:00 IMPRESSION: NO SIGNIFICANT OR ACUTE PROCESS IN THE ABDOMEN OR PELVIS. Assessment & Plan - Diagnosis (1) Aspiration pneumonia Qualifiers: Aspiration pneumonia type: unspecified Laterality: unspecified laterality Is this a current diagnosis for this admission?: Yes Plan: Keep patient in reverse Trendelenburg at all times right middle and lower lobes (2) Profound mental retardation Is this a current diagnosis for this admission?: Yes Plan: Unchanged (3) Respiratory distress Is this a current diagnosis for this admission?: No (4) Seizure disorder Is this a current diagnosis for this admission?: Yes Plan: no activity reported
--- NOTE | 2017-02-26 13:43 | PDOC PROGRESS REPORT ---
Subjective Progress Note for:: 02/26/17 Subjective:: awake Reason For Visit: ASPIRATION PNEUMONIA Physical Exam Vital Signs: Temp Pulse Resp BP Pulse Ox 98.6 F 109 H 18 128/85 H 99 02/26/17 08:16 02/26/17 08:16 02/26/17 07:41 02/26/17 08:16 02/26/17 08:16 Intake & Output 02/25/17 02/26/17 02/27/17 06:59 06:59 06:59 Intake Total 2171 1900 Balance 2171 1900 Weight 34.7 kg 45.4 kg General appearance: PRESENT: no acute distress, disheveled, well-nourished. ABSENT: cooperative, mild distress, morbidly obese, obese, severe distress, thin , well-developed Head exam: PRESENT: atraumatic Eye exam: PRESENT: conjunctiva pale. ABSENT: conjunctival injection, conjunctiva pink Mouth exam: PRESENT: dry mucosa, neck supple, tongue midline. ABSENT: laceration, moist Teeth exam: PRESENT: poor dentation Neck exam: PRESENT: tracheal deviation - minimal to right. ABSENT: carotid bruit, JVD, lymphadenopathy, thyromegaly, tracheostomy Respiratory exam: PRESENT: decreased breath sounds, prolonged expiratory phas, rales, rhonchi, symmetrical, unlabored, wheezes. ABSENT: accessory muscle use, chest wall tenderness, clear to auscultation abeba, crackles, retraction, stridor , tachypnea Cardiovascular exam: PRESENT: RRR, +S1, +S2 Pulses: PRESENT: normal radial pulses GI/Abdominal exam: PRESENT: other - PEG Extremities exam: ABSENT: clubbing, full ROM Musculoskeletal exam: PRESENT: deformity. ABSENT: ambulatory, dislocation, full ROM Neurological exam: PRESENT: awake Skin exam: PRESENT: dry, warm Results Laboratory Results: 02/24/17 10:35 02/24/17 10:35 02/24/17 21:25 Sputum Gram Stain - Final Impressions: Chest X-Ray 02/18/17 00:00 IMPRESSION: Limited study as noted above. There is ill-defined increased density in the left hemithorax which could represent a developing infiltrate or atelectatic changes. Other findings as noted above Chest CT 02/23/17 00:00 IMPRESSION: IMPROVEMENT IN THE AREAS OF CONSOLIDATION IN THE RIGHT LUNG. FAINT MINIMAL HAZY DENSITIES PROBABLY DUE TO ATELECTASIS. Abdomen/Pelvis CT 02/24/17 00:00 IMPRESSION: NO SIGNIFICANT OR ACUTE PROCESS IN THE ABDOMEN OR PELVIS. Assessment & Plan - Diagnosis (1) Aspiration pneumonia Qualifiers: Aspiration pneumonia type: unspecified Laterality: unspecified laterality Is this a current diagnosis for this admission?: Yes Plan: Keep patient in reverse Trendelenburg at all times right middle and lower lobes (2) Profound mental retardation Is this a current diagnosis for this admission?: Yes Plan: Unchanged (3) Respiratory distress Is this a current diagnosis for this admission?: No (4) Seizure disorder Is this a current diagnosis for this admission?: Yes Plan: no activity reported
[2017-02-26] MEDS: ZONISAMIDE 100 MG CAPSULE PEG SCH (23:54)
[2017-02-27] MEDS: LANSOPRAZOLE 15 MG TAB.RAP.DR PEG SCH (05:46)
[2017-02-27] MEDS: CARBAMAZEPINE SUSP 200 MG/10 ML UDCUP GT SCH ×2 (05:46→15:14)
[2017-02-27] MEDS: ACETYLCYSTEINE 20% SOLN 800 MG/4 ML VIAL.NEB NEB SCH (07:44)
[2017-02-27] MEDS: LEVALBUTEROL HCL NEB 1.25 MG/3 ML AMPUL NEB SCH ×3 (07:44→16:33)
[2017-02-27] MEDS: ENOXAPARIN SODIUM INJ 40 MG/0.4 ML DISP.SYRIN SUBCUT SCH (11:09)
[2017-02-27] MEDS: SULFAMETHOXAZOLE/TRIMETHOPRIM 800-160 MG/20 ML UDCUP PO SCH (11:10)
[2017-02-27] MEDS: BACLOFEN 20 MG TABLET PEG SCH ×3 (11:10→17:35)
[2017-02-27] MEDS: FAMOTIDINE INJ/PF 20 MG/2 ML SDV IV SCH (11:11)
[2017-02-27] MEDS: CALCIUM CARBONATE 500 MG TAB.CHEW PEG SCH (11:11)
[2017-02-27] MEDS: POLYETHYLENE GLYCOL 3350 POWDER 17 GM/1 PACKET PEG SCH (11:11)
--- NOTE | 2017-02-27 11:49 | PDOC TRANSFER SUMMARY ---
General - Admit/Disc Date/PCP Admission Date/Primary Care Provider: 02/16/17 13:11 YUKI MARSHALL MD Discharge Date: 02/27/17 - Discharge Diagnosis (1) Aspiration pneumonia Is this a current diagnosis for this admission?: Yes Summary: Currently all resolving continues the Bactrim (2) Leukocytosis Is this a current diagnosis for this admission?: Yes Summary: Currently all resolved (3) Respiratory distress Is this a current diagnosis for this admission?: No Summary: Currently all stable (4) Profound mental retardation Is this a current diagnosis for this admission?: Yes (5) Seizure disorder Is this a current diagnosis for this admission?: Yes Summary: Continues the previous home medications - Additional Information Prescriptions: Acetylcysteine [Mucomist 20% Soln 800 mg/4 mL] 600 mg NEB RTBID #14 vial Levalbuterol HCl [Xopenex Neb 1.25 mg/3 ml Ampul] 1.25 mg NEB [id number] #120 vial.neb Sulfamethoxazole/Trimethoprim [Septra Susp 800-160 mg/20 ml] 20 ml PO Q12 7 Days #300 udc Home Medications: Baclofen [Baclofen 20 mg Tablet] 20 mg PEG QID 02/16/17 Calcium Carbonate 1,250 mg PEG DAILY 02/16/17 Lansoprazole [Prevacid 15 mg Odt Tablet] 15 mg PEG Q6AM 02/16/17 Levonorgestrel-Ethin Estradiol [Introvale 0.15-0.03 mg Tablet] 1 tab PEG DAILY 02/16/17 Polyethylene Glycol 3350 [Miralax Powder 17 gm/Packet] 1 packet PEG DAILY Zonisamide [Zonegran 100 mg Capsule] 200 mg PEG QHS 02/16/17 Carbamazepine 100 mg PEG Q8 02/22/17 Acetylcysteine [Mucomist 20% Soln 800 mg/4 mL] 600 mg NEB RTBID #14 vial Levalbuterol HCl [Xopenex Neb 1.25 mg/3 ml Ampul] 1.25 mg NEB [id number] #120 vial.neb 02/27/17 Sulfamethoxazole/Trimethoprim [Septra Susp 800-160 mg/20 ml] 20 ml PO Q12 7 Days #300 udc 02/27/17 History of Present Illness Admission Date/PCP: 02/16/17 13:11 YUKI MARSHALL MD History of Present Illness: JOSIE ALANIZ is a 26 year old female Information all information is derived from chart as patient unable to respond this is a 26-year-old female with a history of profound mental retardation's and cerebral palsy currently live in assisted living facility brought to the office because of the patient was complaining of wheezing and short of breathStarted this morning and not getting better after the breathing treatments Patient have a recently a G-tube was change and according to the caregiver patient vomited 2 at the time and possible aspirations According to the caregiver patient does not have any fever when I saw the patient in the office patients very bilateral rhonchi and patient Breathing heavy and patient's chest x-ray for the possible pneumonia and the patient's white count was 18,000 and decided to admit in the hospital for further IV antibiotic and a close monitor her Hospital Course Hospital Course: This is a 26-year-old female admitted because of aspirations pneumonia and the respiratory distress patient was started on IV clindamycin and cefepime and switch to the p.o. Bactrim pulmonary Dr. eMndez was consulted is currently doing well and afebrile and all blood work and a chest x-rays and a repeat CT scan of the chest is all stable Discussed with the mother and the caregiver regarding the patient's current conditions Repeat the CBC and Chem-7 in 1 week repeat the chest x-ray in 1 week Aspirations precautions Previous all home medications As needed nebulizer treatments Physical Exam Vital Signs: Temp Pulse Resp BP Pulse Ox 99.1 F 88 16 122/93 H 95 02/27/17 07:25 02/27/17 07:44 02/27/17 07:44 02/27/17 07:25 02/27/17 07:44 Intake & Output 02/26/17 02/27/17 02/28/17 06:59 06:59 06:59 Intake Total 1900 1390 Balance 1900 1390 Weight 45.4 kg 44 kg General appearance: PRESENT: no acute distress Eye exam: PRESENT: PERRLA Respiratory exam: PRESENT: clear to auscultation abeba Cardiovascular exam: PRESENT: +S1, +S2 GI/Abdominal exam: PRESENT: normal bowel sounds, soft Neurological exam: PRESENT: alert, awake Results Laboratory Results: 02/24/17 10:35 02/24/17 10:35 02/24/17 21:25 Sputum Gram Stain - Final 02/24/17 21:25 Sputum Sputum Culture - Final Impressions: Chest X-Ray 02/18/17 00:00 IMPRESSION: Limited study as noted above. There is ill-defined increased density in the left hemithorax which could represent a developing infiltrate or atelectatic changes. Other findings as noted above Chest CT 02/23/17 00:00 IMPRESSION: IMPROVEMENT IN THE AREAS OF CONSOLIDATION IN THE RIGHT LUNG. FAINT MINIMAL HAZY DENSITIES PROBABLY DUE TO ATELECTASIS. Abdomen/Pelvis CT 02/24/17 00:00 IMPRESSION: NO SIGNIFICANT OR ACUTE PROCESS IN THE ABDOMEN OR PELVIS. Transfer Plan - Time Spent with Patient Time spent with patient: Greater than 30 Minutes Plan Time Spent: Greater than 30 Minutes - Repeat the CBC and Chem-7 in 1 week with repeat the chest x-ray in 1 week finish the p.o. Bactrim
[2017-02-27 15:44] VITALS: BP 125/72
== END 2017-02-27 18:18 | disposition home health service (06) | DRG 178 ==
LOC: 4W 13:11 → 4S 19:22
PROVIDERS: ADMIT Family Medicine; ATTEND Family Medicine
PROC: 3E0F73Z Introduction of Anti-inflammatory into Respiratory Tract, Via Natural or Artificial Opening (ICD-10-PCS; principal; 2017-02-16)
DX: J69.0 Pneumonitis due to inhalation of food and vomit (principal); F73 Profound intellectual disabilities; G40.909 Epilepsy, unspecified, not intractable, without status epilepticus; G80.9 Cerebral palsy, unspecified; K21.9 Gastro-esophageal reflux disease without esophagitis; E66.01 Morbid (severe) obesity due to excess calories; Z68.33 Body mass index [BMI] 33.0-33.9, adult; Z99.3 Dependence on wheelchair; Z93.1 Gastrostomy status; Z79.899 Other long term (current) drug therapy
CPT/HCPCS: 36415; 71010; 71250; 74176; 80048; 85025; 85027; 85610; 85730; 87040; 87070; 87205; 94640; J0692; J1650; J3490; J7620; S0028

== ENCOUNTER → 2017-02-16 | Outpatient (CLI) | payer MEDICAID ==
[2017-02-16 11:54] LABS: ABSOLUTE LYMPHOCYTES (AUTO) 1.1 10^3/uL (0.5-4.7); ABSOLUTE MONOCYTES (AUTO) 1.2 10^3/uL (0.1-1.4); ABSOLUTE NEUT (AUTO) 15.7 10^3/uL (1.7-8.2); BASOPHILS % (AUTO) 0.2 % (0-2); EOSINOPHILS % (AUTO) 0.2 % (0-6); HEMATOCRIT 45.5 % (36.0-47.0); HEMOGLOBIN 15.4 g/dL (12.0-15.5); HGB HCT DIFFERENCE 0.7; LYMPHOCYTES % (AUTO) 5.9 % (13-45); MEAN CORPUSCULAR HEMOGLOBIN 33.4 pg (27.0-33.4); MEAN CORPUSCULAR HGB CONC 33.9 g/dL (32.0-36.0); MEAN CORPUSCULAR VOLUME 99 fl (80-97); MONOCYTES % (AUTO) 6.6 % (3-13); RED BLOOD COUNT 4.61 10^6/uL (3.72-5.28); RED CELL DISTRIBUTION WIDTH 13.8 % (11.5-14.0); SEGMENTED NEUTROPHILS % (AUTO) 87.1 % (42-78); WHITE BLOOD COUNT 18.1 10^3/uL (4.0-10.5)
--- NOTE | 2017-02-16 12:06 | RADIOLOGY REPORT (SQ) ---
EXAM DESCRIPTION: CHEST SINGLE VIEW COMPLETED DATE/TIME: 02/16/2017 11:59 am REASON FOR STUDY: COUGH; FEVER R05 COUGH R50.9 FEVER, UNSPECIFIED COMPARISON: None. NUMBER OF VIEWS: One view. TECHNIQUE: Single frontal radiographic view of the chest acquired. LIMITATIONS: Low lung volumes and patient positioning. FINDINGS: LUNGS AND PLEURA: Low lung volumes. Bibasilar airspace disease. No pleural effusion or p neumothorax. MEDIASTINUM AND HILAR STRUCTURES: No masses. No contour abnormality. HEART AND VASCULAR STRUCTURES: Normal size. No evidence for failure. BONES: Stable chronic neuromuscular change. No fracture. HARDWARE: None in the chest. OTHER: No other significant finding. IMPRESSION: BIBASILAR AIRSPACE OPACITIES IN THE SETTING OF LOW LUNG VOLUMES COULD BE SUBSEGMENTAL AT ELECTASIS, ASPIRATION, OR PNEUMONIA. TECHNICAL DOCUMENTATION: JOB ID: [id number] [employer]- All Rights Reserved
[2017-02-16 12:14] LABS: ANION GAP 14 (5-19); BLOOD UREA NITROGEN 6 mg/dL (7-20); CALCIUM 10.6 mg/dL (8.4-10.2); CARBON DIOXIDE 23 mmol/L (22-30); CHLORIDE 104 mmol/L (98-107); CREATININE RESULT 0.35 mg/dL (0.52-1.25); GLUCOSE 117 mg/dL (75-110); POTASSIUM 3.9 mmol/L (3.6-5.0); SODIUM 140.7 mmol/L (137-145)
== END ==
LOC: CAR 11:25
PROVIDERS: ATTEND Family Medicine
DX: R05 Cough (principal); R50.9 Fever, unspecified
CPT/HCPCS: 71010; 80048; 85025

== ENCOUNTER → 2017-03-04 | Outpatient (CLI) | payer MEDICAID ==
--- NOTE | 2017-03-04 13:54 | RADIOLOGY REPORT (SQ) ---
EXAM DESCRIPTION: CHEST SINGLE VIEW COMPLETED DATE/TIME: 03/04/2017 1:45 pm REASON FOR STUDY: PNEUMONIA; NAUSEA AND VOMITING COMPARISON: Chest film 02/16/2017, 02/18/2017 CT chest 02/23/2017 EXAM PARAMETERS: NUMBER OF VIEWS: One view. TECHNIQUE: Single frontal radiographic view of the chest acquired. RADIATION DOSE: NA LIMITATIONS: None. FINDINGS: LUNGS AND PLEURA: No opacities, masses or pneumothorax. No pleural effusion. MEDIASTINUM AND HILAR STRUCTURES: No masses. Contour normal. HEART AND VASCULAR STRUCTURES: Heart normal in size. Normal vasculature. BONES: Convex leftward thoracic and lumbar spinal curvature. HARDWARE: GJ tube at the bottom edge of the field of view OTHER: No other significant finding. IMPRESSION: NO ACUTE RADIOGRAPHIC FINDING IN THE CHEST. TECHNICAL DOCUMENTATION: JOB ID: [id number] [employer]- All Rights Reserved
== END ==
LOC: OD 13:14
PROVIDERS: ATTEND Family Medicine
DX: J18.9 Pneumonia, unspecified organism (principal); R11.2 Nausea with vomiting, unspecified
CPT/HCPCS: 71045

== ENCOUNTER → 2018-01-07 | Outpatient (CLI) | payer MEDICAID ==
[2018-01-07 14:04] LABS: ABSOLUTE EOSINOPHILS # (AUTO) 0.2 10^3/uL (0.0-0.6); ABSOLUTE LYMPHOCYTES (AUTO) 3.3 10^3/uL (0.5-4.7); ABSOLUTE MONOCYTES (AUTO) 0.4 10^3/uL (0.1-1.4); ABSOLUTE NEUT (AUTO) 3.3 10^3/uL (1.7-8.2); BASOPHILS % (AUTO) 0.6 % (0-2); EOSINOPHILS % (AUTO) 3.4 % (0-6); HEMATOCRIT 43.7 % (36.0-47.0); LYMPHOCYTES % (AUTO) 45.6 % (13-45); MEAN CORPUSCULAR HEMOGLOBIN 33.5 pg (27.0-33.4); MEAN CORPUSCULAR HGB CONC 34.2 g/dL (32.0-36.0); MEAN CORPUSCULAR VOLUME 98 fl (80-97); MONOCYTES % (AUTO) 5.2 % (3-13); PLATELET COUNT 368 10^3/uL (150-450); RED BLOOD COUNT 4.46 10^6/uL (3.72-5.28); RED CELL DISTRIBUTION WIDTH 14.3 % (11.5-14.0); SEGMENTED NEUTROPHILS % (AUTO) 45.2 % (42-78); TOTAL CELLS COUNTED % (AUTO) 100 %; WHITE BLOOD COUNT 7.3 10^3/uL (4.0-10.5)
== END ==
LOC: OD 12:49
PROVIDERS: ATTEND Family Medicine
DX: G40.909 Epilepsy, unspecified, not intractable, without status epilepticus (principal); K59.00 Constipation, unspecified; R94.5 Abnormal results of liver function studies; Z79.899 Other long term (current) drug therapy
CPT/HCPCS: 36415; 80156; 80203; 82306; 84443; 85025

== ENCOUNTER → 2018-01-12 | Outpatient (CLI) | payer MEDICAID ==
[2018-01-12 13:16] LABS: ALANINE AMINOTRANSFERASE 40 U/L (9-52); ALBUMIN 4.1 g/dL (3.5-5.0); ALKALINE PHOSPHATASE 384 U/L (38-126); ANION GAP 13 (5-19); ASPARTATE AMINO TRANSFERASE 40 U/L (14-36); BILIRUBIN,DIRECT 0.4 mg/dL (0.0-0.4); BILIRUBIN,TOTAL 0.4 mg/dL (0.2-1.3); BLOOD UREA NITROGEN 7 mg/dL (7-20); CARBON DIOXIDE 24 mmol/L (22-30); CHLORIDE 106 mmol/L (98-107); CHOLESTEROL 202.57 mg/dL (0-200); GLUCOSE 86 mg/dL (75-110); POTASSIUM 5.2 mmol/L (3.6-5.0); SODIUM 143.2 mmol/L (137-145); TOTAL PROTEIN 8.3 g/dL (6.3-8.2); TRIGLYCERIDES 60 mg/dL (<150)
[2018-01-12 13:27] LABS: DIRECT LDL 114 mg/dL (<100)
== END ==
LOC: CAR 11:55
PROVIDERS: ATTEND Family Medicine
DX: Z00.00 Encounter for general adult medical examination without abnormal findings (principal); G40.909 Epilepsy, unspecified, not intractable, without status epilepticus; R94.5 Abnormal results of liver function studies; K59.00 Constipation, unspecified; Z79.899 Other long term (current) drug therapy
CPT/HCPCS: 80053; 80061; 84443

== ENCOUNTER 2018-04-14 07:50 | Inpatient (IN) | payer MEDICAID ==
[2018-04-14] MEDS ORDERED: ETOMIDATE INJ/PF 20 MG/10 ML SDV IV ONE ×4 (07:54→09:00)
[2018-04-14] MEDS ORDERED: LIDOCAINE 1% INJ-PF (10 MG/ML) 30 ML SDV ONE (08:02)
[2018-04-14] MEDS ORDERED: PROPOFOL 1,000 MG/100 ML INFUS..BTL IV ONE (08:05)
[2018-04-14] MEDS ORDERED: MIDAZOLAM HCL 50 MG/100 ML RTUINJ ONE (08:09)
[2018-04-14] MEDS ORDERED: CEFTRIAXONE 1 GM/D5W RTU 1 GM/50 ML RTUPB IV ONE (08:11)
[2018-04-14] MEDS: MIDAZOLAM HCL 50 MG/100 ML RTUINJ IV PRN ×2 (08:12→23:19)
[2018-04-14] MEDS ORDERED: FENTANYL CITRATE INJ/PF 100 MCG/2 ML AMPUL IV ONE (08:17)
[2018-04-14] MEDS ORDERED: FENTANYL CITRATE INJ/PF 100 MCG/2 ML AMPUL ONE (08:17)
--- NOTE | 2018-04-14 08:17 | ER Document Report ---
ED General - General Stated Complaint: RESPIRATORY DISTRESS Time Seen by Provider: 04/14/18 08:10 TRAVEL OUTSIDE OF THE [place] IN LAST 30 DAYS: No - HPI Patient complains to provider of: Respiratory distress Notes: Patient coming in from [facility] for respiratory distress. According to EMS patient was noted at 4+1 have difficulty in breathing upon arrival patient is noted to be febrile. Patient has a history of profound intellectual developmental disability encephalopathy microcephaly epilepsy and cerebral palsy multiple contractures dysphasia GERD with a permanent transgastric jejunostomy feeding tube. Patient presents with a DNR and also a most treatment form that states full scope of treatment use of intubation advanced airway interventions mechanical ventilation is cardioversion medical treatment IV fluids to be performed. This was dated after the DNR 02/02/2018. DNR dated 08/21/2010. Patient otherwise is brought in by EMS being bagged valve mask bag patient minimal responsiveness upon evaluation. Difficulty in obtaining IV access two IO's were placed A brief review of the patient's past medical records available in [employer] was performed No significant past medical history is able to obtain from the patient due to respiratory distress and mental retardation patient was to be nonverbal - Related Data Allergies/Adverse Reactions: No Known Allergies Allergy (Verified 04/14/18 08:55) Past Medical History - Social History Smoking Status: Unknown if Ever Smoked Family History: Reviewed & Not Pertinent - Past Medical History Cardiac Medical History: Denies: Hx Heart Attack, Hx Pulmonary Embolism Pulmonary Medical History: Reports: Hx Pneumonia Neurological Medical History: Reports: Hx Seizures Endocrine Medical History: Denies: Hx Diabetes Mellitus Type 1 GI Medical History: Reports: Hx Gastroesophageal Reflux Disease. Denies: Hx Cirrhosis, Hx Crohn's Disease, Hx Ulcerative Colitis Musculoskeletal Medical History: Denies Hx Gout Skin Medical History: Denies Hx Psoriasis Traumatic Medical History: Denies: Hx Traumatic Brain Injury Past Surgical History: Reports: Other - G-tube placement Review of Systems - Review of Systems -: Yes ROS unobtainable due to patient's medical condition - Mental retardation septic nonverbal Physical Exam - Vital signs Vitals: Resp BP Pulse Ox 31 H 118/66 100 04/14/18 07:54 04/14/18 07:54 04/14/18 07:54 Interpretation: Hypotensive, Tachycardic, Tachypneic, Febrile - General General appearance: Other - Chronically ill In distress: Severe - HEENT Head: Normocephalic Eyes: Normal Conjunctiva: Normal Cornea: Normal - Respiratory Respiratory status: Respiratory distress Chest status: Nontender Breath sounds: Rhonchi Chest palpation: Normal - Cardiovascular Rhythm: Tachycardia Heart sounds: Normal auscultation - Abdominal Inspection: Other - JG tube in place with no signs of infection around the ostomy site Distension: No distension Bowel sounds: Normal Tenderness: Nontender - Extremities General upper extremity: Other - Contracture of the upper extremities warm to touch General lower extremity: Other - Contracture of the lower extremities warm to touch - Neurological Ana María Coma Scale Eye Opening: Spontaneous [place] Coma Scale Verbal: None Ana María Coma Scale Motor: Localizes to Pain [place] Coma Scale Total: 10 - Skin Skin Temperature: Warm Skin Moisture: Dry Skin Color: Normal Course - Re-evaluation Re-evalutation: 04/14/18 08:12 Patient coming in for evaluation of respiratory distress. Upon evaluation patient with a fever significant tachypneic being bagged by a BVM. Patient has significant comorbidities with cerebral palsy patient does come with confusing documentation patient has a DNR. Signed by Dr. Rdz however effective date was 08/21/2010. Patient also has a pink most form signed by the parents section a states do not attempt resuscitation DNR and is x'ed out no CPR however section B is x'ed out stating full scope of treatment use intubation or advanced airway interventions mechanical ventilation cardioversion as indicated medical treatment IV fluids etc. also provide comfort measures transfer to hospital as indicated. Director Of [employer]anth[employer] nursing staff from the patient's facility as they we were able to contact the nursing staff material crew supervisor who has not been able to contact the family members at this time their interpretation of these 2 forms is that the family does not want any CPR however wants all other forms of care to be given. It is my opinion patient is severely septic more likely aspiration pneumonia. And that in depth would result in the patient not being intubated therefore because of these confusing forms and the inability to speak with any family member or staff that the patient will be intubated. Of note this form was last signed by family members or the patient's healthcare representative with no change in January 2018 04/14/18 14:17 Workup was completed showing pneumonia. Concern during intubation is a moderate amount of secretions were suctioned out of the patient's airway the patient more likely had aspirated. Initial antibiotic treatment was Rocephin however broadened with vancomycin and Zosyn. Patient remained stable on ventilator. Central line was placed patient was started on levo fed for hypotension. Fluid resuscitation was begun. Discussed with PCP Joe and pulmonology Dr. Mendez will admit patient to ICU - Vital Signs Vital signs: Temp Pulse Resp BP Pulse Ox 84 24 H 115/59 L 92 04/14/18 13:49 04/14/18 13:49 04/14/18 13:36 04/14/18 13:49 - Laboratory Result Diagrams: 04/14/18 09:10 04/14/18 09:10 Laboratory results interpreted by me: 04/14/18 04/14/18 04/14/18 09:10 09:10 09:10 WBC 1.4 L* RBC 3.65 L MCV 99 H RDW 14.4 H Band Neutrophils % 40 H Monocytes % (Manual) 1 L Metamyelocytes % 3 H Abs Neuts (Manual) 1.2 L Abs Lymphs (Manual) 0.2 L Abs Monocytes (Manual) 0.0 L PT 17.7 H VBG pH VBG HCO3 Potassium 3.1 L Chloride 111 H Carbon Dioxide 16 L Creatinine 0.44 L Lactic Acid Calcium 6.9 L* Magnesium Direct Bilirubin 0.8 H AST 46 H Alkaline Phosphatase 197 H Total Protein 4.7 L Albumin 2.2 L Urine Protein Urine Bilirubin Urine Urobilinogen Urine Ascorbic Acid 04/14/18 04/14/18 04/14/18 09:10 09:10 09:10 WBC RBC MCV RDW Band Neutrophils % Monocytes % (Manual) Metamyelocytes % Abs Neuts (Manual) Abs Lymphs (Manual) Abs Monocytes (Manual) PT VBG pH 7.24 L VBG HCO3 14.9 L Potassium Chloride Carbon Dioxide Creatinine Lactic Acid 5.3 H Calcium Magnesium 1.5 L Direct Bilirubin AST Alkaline Phosphatase Total Protein Albumin Urine Protein Urine Bilirubin Urine Urobilinogen Urine Ascorbic Acid 04/14/18 04/14/18 11:23 12:07 WBC RBC MCV RDW Band Neutrophils % Monocytes % (Manual) Metamyelocytes % Abs Neuts (Manual) Abs Lymphs (Manual) Abs Monocytes (Manual) PT VBG pH VBG HCO3 Potassium Chloride Carbon Dioxide Creatinine Lactic Acid 5.1 H Calcium Magnesium Direct Bilirubin AST Alkaline Phosphatase Total Protein Albumin Urine Protein 30 H Urine Bilirubin SMALL H Urine Urobilinogen 4.0 H Urine Ascorbic Acid 40 H Procedures - Central Line Left Internal jugular Consent obtained: Yes Central line pre-insertion: Sterile PPE donned, Chloraprep applied Central line lumen type: Triple Ultrasound guided: Yes CM at insertion site: 13 Line secured with sutures: Yes Central line post-insertion: Biopatch applied, Sutured, Sterile dressing applied, Position confirmed w/ CXR, Other - No blood return from the brown port brown port also will not flush Number of attempts: 2 - Very collapsible IJ initial attempt with pink blunt ne edle was unsuccessful switch to 18-gauge Angiocath Complications: No - Intubation Orotracheal Airway evaluation: Copious secretions, Neck immobility Mallampati Classification: Class 2 Medications: Etomidate, Succinylcholine Intubation method: Orotracheal Blade size: 3 Equipment used: Glidescope ETT size: 7.0 ETT secured at: Teeth ETT secured at (cm): 23 Breath Sounds after Intubation: Equal End tidal CO2 confirmed: Yes Intubation Complications: Apparent aspiration - Moderate amount of secretions suctioned from the airway Critical Care Note - Critical Care Note Total time excluding time spent on procedures (mins): 87 Comments: Multiple evaluations performed patient with sepsis due to aspiration pneumonia time spent discussing with pulmonology primary care. 10 excludes procedures performed. Discharge - Discharge Clinical Impression: Profound mental retardation, Contracture of joint of multiple sites, Seizure disorder, Respiratory distress, Septic shock Aspiration pneumonia Qualifiers: Aspiration pneumonia type: unspecified Laterality: unspecified laterality Acute respiratory failure Qualifiers: Respiratory failure complication: unspecified whether with hypoxia or hypercapnia Qualified Code(s): J96.00 - Acute respiratory failure, unspecified whether with hypoxia or hypercapnia Condition: Good Disposition: ADMITTED INPATIENT Admitting Provider: [facility] Admitted: ICU
--- NOTE | 2018-04-14 08:56 | RADIOLOGY REPORT (SQ) ---
EXAM DESCRIPTION: CHEST SINGLE VIEW COMPLETED DATE/TIME: 04/14/2018 8:41 am REASON FOR STUDY: ET TUBE AND OG TUBE PLACEMENT COMPARISON: CT chest 02/23/2017 AP chest 03/04/2017 EXAM PARAMETERS: NUMBER OF VIEWS: One view. TECHNIQUE: Single frontal radiographic view of the chest acquired. RADIATION DOSE: NA LIMITATIONS: None. FINDINGS: LUNGS AND PLEURA: Partial collapse of the right upper lobe with dense consolidation, volum e loss and air bronchograms. Diffuse airspace disease is seen throughout the bilateral lower lobes worrisome for pneumonia. No pleural effusion. No pneumothorax. MEDIASTINUM AND HILAR STRUCTURES: No masses. Contour normal. HEART AND VASCULAR STRUCTURES: No cardiomegaly BONES: No acute findings. HARDWARE: Endotracheal tube tip 1.5 cm above the clyde. Nasogastric tube tip and side port in the s tomach. Gastrostomy tube below the hemidiaphragms. OTHER: No other significant finding. IMPRESSION: Endotracheal and nasogastric tube in good positioning Collapse and consolidation right upper lobe Diffuse bilateral lower lobe airspace disease worrisome for pneumonia. TECHNICAL DOCUMENTATION: JOB ID: [id number] [employer]- All Rights Reserved Reading location - IP/workstation name: [email or web address]
[2018-04-14] MEDS ORDERED: NOREPINEPHRINE BITARTRATE INJ/PF 4 MG/4 ML SDV IV ONE ×2 (08:59→18:42)
[2018-04-14] MEDS ORDERED: SUCCINYLCHOLINE CHLORIDE INJ 200 MG/10 ML VIAL IV ONE (09:00)
[2018-04-14] MEDS: DEXTROSE 5%-WATER 250 ML with NOREPINEPHRINE BITARTRATE 4 MG IV PRN ×4 (09:18→18:46)
[2018-04-14] MEDS ORDERED: NORMAL SALINE 1000 ML 1,000 ML IV ONE ×3 (09:18→11:25)
[2018-04-14] MEDS ORDERED: VANCOMYCIN HCL INJ 1000 MG VIAL IV ONE (09:20)
--- NOTE | 2018-04-14 09:33 | RADIOLOGY REPORT (SQ) ---
EXAM DESCRIPTION: CHEST SINGLE VIEW COMPLETED DATE/TIME: 04/14/2018 9:21 am REASON FOR STUDY: central line placement COMPARISON: AP chest 04/14/2018, 930 hours EXAM PARAMETERS: NUMBER OF VIEWS: One view. TECHNIQUE: Single frontal radiographic view of the chest acquired. RADIATION DOSE: NA LIMITATIONS: None. FINDINGS: Interval placement of a left jugular central line with the tip in the superior vena cava. LUNGS AND PLEURA: No change in right upper lobe collapse/ consolidation, and bilateral diffuse airspa ce disease in the right and left lungs. No pneumothorax. No gross pleural effusions. MEDIASTINUM AND HILAR STRUCTURES: No masses. Contour normal. HEART AND VASCULAR STRUCTURES: NO cardiomegaly BONES: No acute findings. HARDWARE: Left jugular central line tip superior vena cava. Endotracheal tube tip 1 cm above the car amelia. Nasogastric tube tip and side port in the stomach. Pre-existing gastrostomy tube. OTHER: No other significant finding. IMPRESSION: Left jugular central line tip superior vena cava. Endotracheal tube tip 1 cm above the clyde No change in collapse/consolidation right upper lobe and diffuse bilateral lower lobe airspace diseas e worrisome for pneumonia TECHNICAL DOCUMENTATION: JOB ID: [id number] [employer]- All Rights Reserved Reading location - IP/workstation name: [email or web address]
[2018-04-14 09:38] LABS: HEMOGLOBIN 12.1 g/dL (12.0-15.5); MEAN CORPUSCULAR HEMOGLOBIN 33.2 pg (27.0-33.4); MEAN CORPUSCULAR HGB CONC 33.6 g/dL (32.0-36.0); MEAN CORPUSCULAR VOLUME 99 fl (80-97); PLATELET COUNT 164 10^3/uL (150-450); RED BLOOD COUNT 3.65 10^6/uL (3.72-5.28); RED CELL DISTRIBUTION WIDTH 14.4 % (11.5-14.0)
[2018-04-14 09:39] LABS: INTERNATIONAL RATION (INR) 1.38; PROTHROMBIN TIME 17.7 SEC (11.4-15.4)
[2018-04-14 09:54] LABS: ALANINE AMINOTRANSFERASE 42 U/L (9-52); ALBUMIN 2.2 g/dL (3.5-5.0); ALKALINE PHOSPHATASE 197 U/L (38-126); ANION GAP 11 (5-19); ASPARTATE AMINO TRANSFERASE 46 U/L (14-36); BILIRUBIN,DIRECT 0.8 mg/dL (0.0-0.4); BILIRUBIN,TOTAL 1.2 mg/dL (0.2-1.3); BLOOD UREA NITROGEN 9 mg/dL (7-20); CARBON DIOXIDE 16 mmol/L (22-30); CHLORIDE 111 mmol/L (98-107); GLUCOSE 96 mg/dL (75-110); POTASSIUM 3.1 mmol/L (3.6-5.0); SODIUM 137.9 mmol/L (137-145); TOTAL PROTEIN 4.7 g/dL (6.3-8.2)
[2018-04-14 10:02] LABS: VENOUS BLOOD BASE EXCESS -11.4 mmol/L; VENOUS BLOOD HCO3 14.9 mmol/L (20-32); VENOUS BLOOD PCO2 35.3 mmHg (35-63); VENOUS BLOOD PH 7.24 (7.30-7.42); WHITE BLOOD COUNT 1.4 10^3/uL (4.0-10.5)
[2018-04-14 10:12] LABS: CALCIUM 6.9 mg/dL (8.4-10.2)
[2018-04-14] MEDS ORDERED: SUCCINYLCHOLINE CHLORIDE INJ 200 MG/10 ML VIAL ONE (10:13)
[2018-04-14 10:20] LABS: ABSOLUTE LYMPHOCYTES# (MANUAL) 0.2 10^3/uL (0.5-4.7); ABSOLUTE NEUTROPHILS# (MANUAL) 1.2 10^3/uL (1.7-8.2); BASOPHILS % (MANUAL) 0 % (0-2); EOSINOPHILS % (MANUAL) 0 % (0-6); LYMPHOCYTES % (MANUAL) 14 % (13-45); MONOCYTES % (MANUAL) 1 % (3-13); SEGMENTED NEUTROPHILS % (MAN) 42 % (42-78); TOTAL CELLS COUNTED 100
[2018-04-14 10:21] LABS: BAND NEUTROPHILS % (MANUAL) 40 % (3-5); METAMYELOCYTES % (MANUAL) 3 % (0)
[2018-04-14 10:22] LABS: TOXIC VACUOLATION PRESENT
[2018-04-14 10:23] LABS: HYPOCHROMASIA SLIGHT; PLATELET COMMENT ADEQUATE; POLYCHROMASIA SLIGHT; ROULEAUX SLIGHT; TOXIC GRANULATION SLIGHT
[2018-04-14] MEDS ORDERED: ACETAMINOPHEN 650 MG SUPP.RECT PR PRN (11:11)
[2018-04-14] MEDS ORDERED: PIPERACILLIN/TAZOBACTAM 4.5 GM VIAL IV ONE (11:11)
[2018-04-14] MEDS ORDERED: NORMAL SALINE 1000 ML 1,000 ML IV PRN (11:11)
[2018-04-14] MEDS ORDERED: VANCOMYCIN HCL 0 MG in DEXTROSE 5%-WATER 250 ML IV NR (11:30)
[2018-04-14 11:53] LABS: APPEARANCE,URINE CLOUDY; BILIRUBIN,URINE SMALL (NEGATIVE); COLOR,URINE AMBER; GLUCOSE, URINE NEGATIVE (NEGATIVE); KETONES,URINE NEGATIVE (NEGATIVE); LEUKOCYTE ESTERASE,URINE NEGATIVE (NEGATIVE); NITRITE,URINE NEGATIVE (NEGATIVE); PROTEIN,URINE 30 mg/dL (NEGATIVE)
[2018-04-14] MEDS ORDERED: LEVALBUTEROL HCL NEB 1.25 MG/3 ML AMPUL NEB SCH (12:00)
[2018-04-14] MEDS ORDERED: METRONIDAZOLE 500 MG/NS RTU 500 MG/100 ML RTUPB IV SCH (12:00)
[2018-04-14] MEDS: PIPERACILLIN SODIUM/TAZOBACTAM 3.375 GM in NORMAL SALINE 100 ML IV SCH ×3 (12:39→23:46)
--- NOTE | 2018-04-14 12:49 | EKG REPORT ---
SEVERITY:- ABNORMAL ECG - SINUS RHYTHM NONSPECIFIC T ABNORMALITIES, ANTERIOR LEADS : Confirmed by: Orlando Thornton MD 14-Apr-2018 12:48:34
[2018-04-14] MEDS: POTASSI CL 40 MEQ/NS 1L 1,000 ML IV PRN (13:30)
[2018-04-14] MEDS: LEVALBUTEROL HCL NEB 1.25 MG/3 ML AMPUL NEB SCH ×2 (13:48→20:21)
[2018-04-14] MEDS ORDERED: MAGNESIUM SULFATE/D5W 1 GM/100 ML RTUPB IV ONE (13:55)
[2018-04-14] MEDS ORDERED: IPRATROPIUM/ALBUTEROL 0.5-2.5 MG/3 ML AMPUL NEB SCH (14:00)
[2018-04-14 14:06] LABS: A TYPE INFLUENZA AG NEGATIVE (NEGATIVE); B INFLUENZA AG NEGATIVE (NEGATIVE)
[2018-04-14] MEDS: METRONIDAZOLE 500 MG/NS RTU 500 MG/100 ML RTUPB IV SCH ×2 (14:10→21:25)
[2018-04-14] MEDS: POTASSI CL 20 MEQ/50 ML RIDER 20 MEQ/50 ML RTUPB IV SCH ×2 (15:31→18:46)
--- NOTE | 2018-04-14 17:03 | PDOC H&P ---
History of Present Illness Admission Date/PCP: YUKI MARSHALL MD Patient complains of: Respiratory distress History of Present Illness: JOSIE ALANIZ is a 27 year old female This is a 27-year-old female with a history of the profound mental retardation cerebral palsy currently living in a retirement facility brought to the emergency department because of the respiratory distress and wheezing and emergency department patient was very tachypneic in respiratory distress and ER physician intubated the patient patient also very septic and hypotensive with lactic acid is 5.3 Patient's chest x-ray is bilateral pneumonia possible aspirations patient is giving the IV Zosyn and vancomycin in the ER and patient was started in a pressor for blood pressure was around 80 Patients have a DNR paper but as I remember the last time I discussed with the mother who is the power of estate planning attorney wants to do everything and she will further decide Patient at this point decided to admit in the ICU consult the pulmonary start the patient on the broad-spectrum antibiotics IV fluid and a pressor Other medical problems will have a seizures disorder and also have a G-tube Past Medical History Cardiac Medical History: Denies: Myocardial Infarction, Pulmonary Embolism Pulmonary Medical History: Reports: Pneumonia, Respiratory Failure Neurological Medical History: Reports: Seizures Endocrine Medical History: Denies: Diabetes Mellitus Type 1 GI Medical History: Reports: Gastroesophageal Reflux Disease Denies: Cirrhosis, Crohn's Disease, Ulcerative Colitis Musculoskeltal Medical History: Denies: Gout Skin Medical History: Denies: Psoriasis Traumatic Medical History: Denies: Traumatic Brain Injury Hematology: Denies: Sickle Cell Disease, Bleeding Tendencies Past Surgical History Past Surgical History: Reports: Other - G-tube placement Social History Smoking Status: Never Smoker Frequency of Alcohol Use: None Hx Recreational Drug Use: No Hx Prescription Drug Abuse: No Family History Family History: Reviewed & Not Pertinent Parental Family History Reviewed: Yes Children Family History Reviewed: Yes Sibling(s) Family History Reviewed.: Yes Medication/Allergy Home Medications: Baclofen [Baclofen 20 mg Tablet] 20 mg PEG QID 02/16/17 Calcium Carbonate 1,250 mg PEG DAILY 02/16/17 Lansoprazole [Prevacid 15 mg Odt Tablet] 15 mg PEG Q6AM 02/16/17 Levonorgestrel-Ethin Estradiol [Introvale 0.15-0.03 mg Tablet] 1 tab PEG DAILY 02/16/17 Polyethylene Glycol 3350 [Miralax Powder 17 gm/Packet] 1 packet PEG DAILY 02/16/17 Zonisamide [Zonegran 100 mg Capsule] 200 mg PEG QHS 02/16/17 Carbamazepine [Tegretol Susp 200 mg/10 mL UD Cup] 200 mg PEG TID 04/14/18 Diazepam [Diastat Acudial] 1 each RC Q6HP PRN 04/14/18 Promethazine HCl [Phenergan 25 mg Supp.rect] 1 supp VT Q8HP PRN 04/14/18 Allergies/Adverse Reactions: No Known Allergies Allergy (Verified 04/14/18 08:55) Review of Systems ROS unobtainable: Due to endotracheal tube, Due to mental status All systems: reviewed and no additional remarkable complaints except as stated Physical Exam Vital Signs: Temp Pulse Resp BP Pulse Ox 24 H 82/53 L 92 04/14/18 09:55 04/14/18 09:55 04/14/18 09:55 Intake & Output 04/13/18 04/14/18 04/15/18 06:59 06:59 06:59 Intake Total 2069 Balance 2069 Weight 44.9 kg Physical Exam: Currently intubated General appearance: PRESENT: no acute distress Eye exam: PRESENT: PERRLA Respiratory exam: PRESENT: decreased breath sounds Cardiovascular exam: PRESENT: +S1, +S2, tachycardia GI/Abdominal exam: PRESENT: normal bowel sounds, soft Additonal comments: G-tube is intact Extremities exam: ABSENT: pedal edema Neurological exam: PRESENT: altered Skin exam: PRESENT: dry Results Laboratory Results: 04/14/18 09:10 04/14/18 09:10 04/14/18 04/14/18 04/14/18 09:10 09:10 09:10 WBC 1.4 L* RBC 3.65 L Hgb 12.1 Hct 36.0 MCV 99 H MCH 33.2 MCHC 33.6 RDW 14.4 H Plt Count 164 Seg Neutrophils % Not Reportable Lymphocytes % Not Reportable Monocytes % Not Reportable Eosinophils % Not Reportable Basophils % Not Reportable Absolute Neutrophils Not Reportable Absolute Lymphocytes Not Reportable Absolute Monocytes Not Reportable Absolute Eosinophils Not Reportable Absolute Basophils Not Reportable VBG pH VBG pCO2 VBG HCO3 VBG Base Excess Sodium 137.9 Potassium 3.1 L Chloride 111 H Carbon Dioxide 16 L Anion Gap 11 BUN 9 Creatinine 0.44 L Est GFR ( Amer) > 60 Est GFR (Non-Af Amer) > 60 Glucose 96 Lactic Acid 5.3 H Calcium 6.9 L* Total Bilirubin 1.2 AST 46 H ALT 42 Alkaline Phosphatase 197 H Total Protein 4.7 L Albumin 2.2 L 04/14/18 09:10 WBC RBC Hgb Hct MCV MCH MCHC RDW Plt Count Seg Neutrophils % Lymphocytes % Monocytes % Eosinophils % Basophils % Absolute Neutrophils Absolute Lymphocytes Absolute Monocytes Absolute Eosinophils Absolute Basophils VBG pH 7.24 L VBG pCO2 35.3 VBG HCO3 14.9 L VBG Base Excess -11.4 Sodium Potassium Chloride Carbon Dioxide Anion Gap BUN Creatinine Est GFR ( Amer) Est GFR (Non-Af Amer) Glucose Lactic Acid Calcium Total Bilirubin AST ALT Alkaline Phosphatase Total Protein Albumin Impressions: Chest X-Ray 04/14/18 08:11 IMPRESSION: Endotracheal and nasogastric tube in good positioning Collapse and consolidation right upper lobe Diffuse bilateral lower lobe airspace disease worrisome for pneumonia. Assessment & Plan - Diagnosis (1) Acute respiratory failure Qualifiers: Respiratory failure complication: unspecified whether with hypoxia or hypercapnia Qualified Code(s): J96.00 - Acute respiratory failure, unspecified whether with hypoxia or hypercapnia Is this a current diagnosis for this admission?: Yes Plan: Admit in ICU 'Consult with Dr. Mendez Continues ICU protocol (2) Septic shock Is this a current diagnosis for this admission?: Yes Plan: Continues to IV fluid and keep a blood pressures above 100 continues to pao Continues the broad-spectrum IV antibiotic Once the patient's most stabilized we will order the CT chest and abdomen and pelvis (3) Aspiration pneumonia Qualifiers: Aspiration pneumonia type: unspecified Laterality: unspecified laterality Is this a current diagnosis for this admission?: Yes Plan: IV Zosyn and vancomycin and Flagyl (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 IV seizures medications - Time Time Spent: 50 to 70 Minutes Critical Time spent with patient: 35 or more minutes Anticipated discharge: SNF Within: Other - Inpatient Certification Based on my medical assessment, after consideration of the patient's co morbidities, presenting symptoms, or acuity I expect that the services needed warrant INPATIENT care.: Yes I certify that my determination is in accordance with my understanding of Medicare's requirements for reasonable and necessary INPATIENT services [42 CFR 412.3e].: Yes Medical Necessity: Significant Comorbidiites Make Outpatient Treatment Too Risky, Need For IV Fluids, Need for Nebulizer Therapy and Monitoring of Response, Need for IV Antibiotics Post Hospital Care: D/C Husker Operator Documentation - Plan Summary Plan Summary: See other MD orders Discussed with the caregiver at retirement facility will contact the mother regarding the CODE STATUS the poor prognosis d/w mother in er about pt condition
[2018-04-14] MEDS ORDERED: CARBAMAZEPINE SUSP 200 MG/10 ML UDCUP PEG SCH (18:00)
[2018-04-14] MEDS: BACLOFEN 20 MG TABLET PEG SCH ×2 (18:47→23:43)
[2018-04-14] MEDS: CARBAMAZEPINE SUSP 200 MG/10 ML UDCUP PEG SCH (18:47)
[2018-04-14 19:06] LABS: ARTERIAL BLOOD FIO2 60; ARTERIAL BLOOD H2CO3 0.68 mmol/L (1.05-1.35); ARTERIAL BLOOD HCO3 15.9 mmol/L (20-24); ARTERIAL BLOOD O2 SATURATION 93.6 % (94-98); ARTERIAL BLOOD PCO2 22.7 mmHg (35-45); ARTERIAL BLOOD PH 7.46 (7.35-7.45); ARTERIAL BLOOD PO2 62.2 mmHg (80-100); ARTERIAL BLOOD TOTAL CO2 16.6 mmol/L (21-25)
[2018-04-14 19:23] LABS: ANION GAP 8 (5-19); BLOOD UREA NITROGEN 7 mg/dL (7-20); CARBON DIOXIDE 17 mmol/L (22-30); CHLORIDE 111 mmol/L (98-107); GLUCOSE 141 mg/dL (75-110); POTASSIUM 3.8 mmol/L (3.6-5.0); SODIUM 136.4 mmol/L (137-145)
[2018-04-14] MEDS ORDERED: NORMAL SALINE INJ/PF 0.9% 10 ML SDV IV PRN (19:26)
[2018-04-14 20:08] LABS: CALCIUM 6.7 mg/dL (8.4-10.2)
[2018-04-14] MEDS: VANCOMYCIN HCL 1,000 MG in DEXTROSE 5%-WATER 250 ML IV SCH (21:29)
[2018-04-14] MEDS: FAMOTIDINE INJ/PF 20 MG/2 ML SDV IV SCH (21:29)
[2018-04-14] MEDS: ZONISAMIDE 100 MG CAPSULE PEG SCH (22:27)
[2018-04-14] MEDS ORDERED: BACLOFEN 20 MG TABLET ONE (23:47)
[2018-04-15] MEDS: METRONIDAZOLE 500 MG/NS RTU 500 MG/100 ML RTUPB IV SCH ×4 (02:20→21:22)
[2018-04-15] MEDS: LEVALBUTEROL HCL NEB 1.25 MG/3 ML AMPUL NEB SCH ×4 (02:28→20:10)
[2018-04-15] MEDS ORDERED: NOREPINEPHRINE BITARTRATE INJ/PF 4 MG/4 ML SDV IV ONE (03:52)
[2018-04-15] MEDS: DEXTROSE 5%-WATER 250 ML with NOREPINEPHRINE BITARTRATE 4 MG IV PRN ×6 (04:18→15:37)
[2018-04-15 05:33] LABS: ABSOLUTE EOSINOPHILS # (AUTO) 0.1 10^3/uL (0.0-0.6); ABSOLUTE LYMPHOCYTES (AUTO) 0.9 10^3/uL (0.5-4.7); ABSOLUTE MONOCYTES (AUTO) 0.3 10^3/uL (0.1-1.4); ABSOLUTE NEUT (AUTO) 7.3 10^3/uL (1.7-8.2); BASOPHILS % (AUTO) 0.6 % (0-2); EOSINOPHILS % (AUTO) 0.6 % (0-6); HEMATOCRIT 34.8 % (36.0-47.0); HEMOGLOBIN 11.9 g/dL (12.0-15.5); LYMPHOCYTES % (AUTO) 10.5 % (13-45); MEAN CORPUSCULAR HEMOGLOBIN 33.7 pg (27.0-33.4); MEAN CORPUSCULAR HGB CONC 34.2 g/dL (32.0-36.0); MEAN CORPUSCULAR VOLUME 98 fl (80-97); MONOCYTES % (AUTO) 3.5 % (3-13); PLATELET COUNT 162 10^3/uL (150-450); RED BLOOD COUNT 3.54 10^6/uL (3.72-5.28); RED CELL DISTRIBUTION WIDTH 14.7 % (11.5-14.0); SEGMENTED NEUTROPHILS % (AUTO) 84.8 % (42-78); TOTAL CELLS COUNTED % (AUTO) 100 %
[2018-04-15 05:36] LABS: WHITE BLOOD COUNT 8.6 10^3/uL (4.0-10.5)
[2018-04-15 05:38] LABS: ARTERIAL BLOOD BASE EXCESS -9.4 mmol/L; ARTERIAL BLOOD H2CO3 0.67 mmol/L (1.05-1.35); ARTERIAL BLOOD HCO3 13.5 mmol/L (20-24); ARTERIAL BLOOD O2 SATURATION 98.8 % (94-98); ARTERIAL BLOOD PCO2 22.4 mmHg (35-45); ARTERIAL BLOOD PO2 135.9 mmHg (80-100); ARTERIAL BLOOD TOTAL CO2 14.2 mmol/L (21-25)
[2018-04-15 05:39] LABS: ARTERIAL BLOOD FIO2 60%
[2018-04-15] MEDS: PIPERACILLIN SODIUM/TAZOBACTAM 3.375 GM in NORMAL SALINE 100 ML IV SCH ×4 (05:39→23:14)
[2018-04-15] MEDS: CARBAMAZEPINE SUSP 200 MG/10 ML UDCUP PEG SCH ×3 (05:40→21:23)
[2018-04-15 05:50] LABS: ALANINE AMINOTRANSFERASE 83 U/L (9-52); ALBUMIN 2.1 g/dL (3.5-5.0); ALKALINE PHOSPHATASE 135 U/L (38-126); ANION GAP 9 (5-19); ASPARTATE AMINO TRANSFERASE 106 U/L (14-36); BILIRUBIN,DIRECT 1.6 mg/dL (0.0-0.4); BILIRUBIN,TOTAL 1.7 mg/dL (0.2-1.3); BLOOD UREA NITROGEN 6 mg/dL (7-20); CARBON DIOXIDE 16 mmol/L (22-30); CHLORIDE 112 mmol/L (98-107); GLUCOSE 126 mg/dL (75-110); POTASSIUM 4.2 mmol/L (3.6-5.0); SODIUM 137.2 mmol/L (137-145); TOTAL PROTEIN 4.5 g/dL (6.3-8.2)
[2018-04-15 06:00] LABS: CALCIUM 6.8 mg/dL (8.4-10.2)
[2018-04-15] MEDS: POTASSI CL 40 MEQ/NS 1L 1,000 ML IV PRN (06:37)
--- NOTE | 2018-04-15 08:26 | RADIOLOGY REPORT (SQ) ---
EXAM DESCRIPTION: CHEST SINGLE VIEW COMPLETED DATE/TIME: 04/15/2018 6:39 am REASON FOR STUDY: resp failure/pna COMPARISON: Chest films 03/04/2017, 04/14/2018 EXAM PARAMETERS: NUMBER OF VIEWS: One view. TECHNIQUE: Single frontal radiographic view of the chest acquired. RADIATION DOSE: NA LIMITATIONS: None. FINDINGS: LUNGS AND PLEURA: Persistent dense consolidation in the right upper lobe from pneumonia. This is similar compared to films from 04/14/2018. Right retrocardiac consolidation with air bronchograms unchanged. Left lung well inflated and clear. No pleural effusions or pneumothorax. MEDIASTINUM AND HILAR STRUCTURES: No masses. Contour normal. HEART AND VASCULAR STRUCTURES: No cardiomegaly BONES: No acute findings. HARDWARE: Left jugular central line tip superior vena cava. Endotracheal tube, nasogastric tube, pre -existing GJ tube in good positioning. OTHER: No other significant finding. IMPRESSION: Persistent dense right upper lobe and right medial lung base pneumonia. TECHNICAL DOCUMENTATION: JOB ID: [id number] [employer]- All Rights Reserved Reading location - IP/workstation name: [email or web address]
[2018-04-15] MEDS ORDERED: CALCIUM CARBONATE 1250 MG PEG SCH (10:00)
[2018-04-15] MEDS: POLYETHYLENE GLYCOL 3350 POWDER 17 GM/1 PACKET PEG SCH (10:48)
[2018-04-15] MEDS: CALCIUM CARBONATE 500 MG TAB.CHEW PEG SCH (10:49)
[2018-04-15] MEDS: ENOXAPARIN SODIUM INJ 40 MG/0.4 ML DISP.SYRIN SUBCUT SCH (10:49)
[2018-04-15] MEDS: FAMOTIDINE INJ/PF 20 MG/2 ML SDV IV SCH ×2 (10:50→21:22)
[2018-04-15] MEDS: BACLOFEN 20 MG TABLET PEG SCH ×4 (12:24→21:23)
[2018-04-15] MEDS: VANCOMYCIN HCL 1,000 MG in DEXTROSE 5%-WATER 250 ML IV SCH ×2 (12:27→21:22)
--- NOTE | 2018-04-15 13:07 | PDOC PROGRESS REPORT ---
Subjective Progress Note for:: 04/15/18 Subjective:: Patient is currently doing fair Patient still in the levo drip Patients have a no fever Still intubated Reason For Visit: RESPIRATORY DISTRESS, PNEUMONIA Physical Exam Vital Signs: Temp Pulse Resp BP Pulse Ox 97.9 F 97 22 H 103/43 L 97 04/15/18 12:00 04/15/18 12:00 04/15/18 12:00 04/15/18 12:00 04/15/18 12:00 Intake & Output 04/14/18 04/15/18 04/16/18 06:59 06:59 06:59 Intake Total 4820 176 Output Total 1050 650 Balance 3770 -474 Weight 44.1 kg Physical Exam: Intubated under sedation Eye exam: PRESENT: PERRLA Mouth exam: PRESENT: neck supple Respiratory exam: PRESENT: decreased breath sounds Cardiovascular exam: PRESENT: +S1, +S2 GI/Abdominal exam: PRESENT: normal bowel sounds, soft Neurological exam: PRESENT: altered Skin exam: PRESENT: dry Results Laboratory Results: 04/15/18 05:15 04/15/18 05:15 04/14/18 04/14/18 04/14/18 18:50 18:50 18:50 WBC RBC Hgb Hct MCV MCH MCHC RDW Plt Count Seg Neutrophils % Lymphocytes % Monocytes % Eosinophils % Basophils % Absolute Neutrophils Absolute Lymphocytes Absolute Monocytes Absolute Eosinophils Absolute Basophils Carbonic Acid 0.68 L HCO3/H2CO3 Ratio 23:1 ABG pH 7.46 H ABG pCO2 22.7 L ABG pO2 62.2 L ABG HCO3 15.9 L ABG O2 Saturation 93.6 L ABG Base Excess -6.0 FiO2 60 Sodium 136.4 L Potassium 3.8 Chloride 111 H Carbon Dioxide 17 L Anion Gap 8 BUN 7 Creatinine 0.45 L Est GFR ( Amer) > 60 Est GFR (Non-Af Amer) > 60 Glucose 141 H Calcium 6.7 L* Magnesium 2.2 Total Bilirubin AST ALT Alkaline Phosphatase Total Protein Albumin 04/14/18 04/15/18 04/15/18 18:50 05:15 05:15 WBC 8.6 D RBC 3.54 L Hgb 11.9 L Hct 34.8 L MCV 98 H MCH 33.7 H MCHC 34.2 RDW 14.7 H Plt Count 162 Seg Neutrophils % 84.8 H Lymphocytes % 10.5 L Monocytes % 3.5 Eosinophils % 0.6 Basophils % 0.6 Absolute Neutrophils 7.3 Absolute Lymphocytes 0.9 Absolute Monocytes 0.3 Absolute Eosinophils 0.1 Absolute Basophils 0.0 Carbonic Acid HCO3/H2CO3 Ratio ABG pH ABG pCO2 ABG pO2 ABG HCO3 ABG O2 Saturation ABG Base Excess FiO2 Sodium 137.2 Potassium 4.2 Chloride 112 H Carbon Dioxide 16 L Anion Gap 9 BUN 6 L Creatinine 0.39 L Est GFR ( Amer) > 60 Est GFR (Non-Af Amer) > 60 Glucose 126 H Calcium 6.8 L* Magnesium 1.9 Total Bilirubin 1.7 H AST 106 H ALT 83 H Alkaline Phosphatase 135 H Total Protein 4.5 L Albumin 2.1 L 2.1 L 04/15/18 05:30 WBC RBC Hgb Hct MCV MCH MCHC RDW Plt Count Seg Neutrophils % Lymphocytes % Monocytes % Eosinophils % Basophils % Absolute Neutrophils Absolute Lymphocytes Absolute Monocytes Absolute Eosinophils Absolute Basophils Carbonic Acid 0.67 L HCO3/H2CO3 Ratio 20:1 ABG pH 7.40 ABG pCO2 22.4 L ABG pO2 135.9 H ABG HCO3 13.5 L ABG O2 Saturation 98.8 H ABG Base Excess -9.4 FiO2 60% Sodium Potassium Chloride Carbon Dioxide Anion Gap BUN Creatinine Est GFR ( Amer) Est GFR (Non-Af Amer) Glucose Calcium Magnesium Total Bilirubin AST ALT Alkaline Phosphatase Total Protein Albumin Impressions: Chest X-Ray 04/15/18 06:00 IMPRESSION: Persistent dense right upper lobe and right medial lung base pneumonia. Assessment & Plan - Diagnosis (1) Acute respiratory failure Qualifiers: Respiratory failure complication: unspecified whether with hypoxia or hy percapnia Qualified Code(s): J96.00 - Acute respiratory failure, unspecified whether with hypoxia or hypercapnia Is this a current diagnosis for this admission?: Yes Plan: Currently on a ventilation (2) Septic shock Is this a current diagnosis for this admission?: Yes Plan: Continues to IV fluid and keep a blood pressures above 100 continues to pao Continues the broad-spectrum IV antibiotic Once the patient's most stabilized we will order the CT chest and abdomen and pelvis (3) Aspiration pneumonia Qualifiers: Aspiration pneumonia type: unspecified Laterality: unspecified laterality Is this a current diagnosis for this admission?: Yes Plan: IV Zosyn and vancomycin and Flagyl (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 IV seizures medications - Time Time Spent with patient: 25-34 minutes Total Critical Time (Minutes): 25 Medications reviewed and adjusted accordingly: Yes Anticipated discharge: Other Within: Other - Plan Summary Plan Summary: Continues to current medications
[2018-04-15 14:51] LABS: PATH REVIEW PATHOLOGIST REVIEWED
--- NOTE | 2018-04-15 15:21 | RADIOLOGY REPORT (SQ) ---
EXAM DESCRIPTION: CT CHEST WITHOUT; CT ABD/PELVIS NO ORAL OR IV COMPLETED DATE/TIME: 04/15/2018 2:39 pm REASON FOR STUDY: Aspiration pneumonia; Aspiration pneumonia/r/o bowel obstruction COMPARISON: Chest films 04/15/2018, 04/14/2018, 03/04/2017 CT chest 02/23/2017, 02/16/2017 TECHNIQUE: CT scan of the chest performed without intravenous contrast using helical scanning techni que. Images reviewed with lung, soft tissue and bone windows. Reconstructed coronal and sagittal MPR images reviewed. All images stored on PACS. CT scan of the abdomen and pelvis performed without intravenous contrast and withoutoral contrast usi ng helical scanning technique with dynamic intravenous contrast injection. Images reviewed with lung , soft tissue and bone windows. Reconstructed coronal and sagittal MPR images reviewed. All images stored on PACS. All CT scanners at this facility use dose modulation, iterative reconstruction, and/or weight based d osing when appropriate to reduce radiation dose to as low as reasonably achievable (ALARA). [facility]: Dose Right [facility]: CareDose [facility]: Dose Right [facility]: Teradose 4D [facility]: [employer] RADIATION DOSE: CT Rad equipment meets quality standard of care and radiation dose reduction techniq ues were employed. CTDIvol: 12.3 - 13.0 mGy. DLP: 1030 mGy-cm. mGy. LIMITATIONS: No technical limitations. FINDINGS: CHEST: AXILLAE: No adenopathy. CHEST WALL: No masses. No subcutaneous air. LUNGS and PLEURA: Dense pneumonia with air bronchograms throughout the right upper lobe and right low er lobe, with relative sparing of the right middle lobe. Dense consolidation in the dependent portion of the left lower lobe. No gross pleural effusions. THYROID: No masses or significant asymmetry. HILAR AND MEDIASTINAL STRUCTURES: No identified masses or abnormal nodes. AORTA AND GREAT VESSELS: No aneurysm. HEART: No pericardial effusion. HARDWARE AND LIFELINES: Endotracheal tube tip in the trachea about 2 cm above the clyde. Left jugul ar central line tip superior vena cava. Nasogastric tube tip and side port in the stomach. BONES: Convex leftward scoliosis distorts the shape of the chest cavity OTHER: No other significant finding. ABDOMEN AND PELVIS: LIVER: Non contrasted imaging of the liver is unremarkable. SPLEEN: Normal size. No focal lesions. PANCREAS: No masses. No significant calcifications. No adjacent inflammation or peripancreatic flui d collections. Pancreatic duct not dilated. GALLBLADDER: Not well seen due to motion artifact and distortion of the abdominal contents by convex leftward scoliosis ADRENAL GLANDS: No significant masses or asymmetry. RIGHT KIDNEY AND URETER: No solid masses. Assessment limited by lack of IV contrast. No significant calcifications. No hydronephrosis or hydroureter. LEFT KIDNEY AND URETER: No solid masses. Assessment limited by lack of IV contrast. No significant calcifications. No hydronephrosis or hydroureter. AORTA AND VESSELS: No aneurysm. RETROPERITONEUM: No retroperitoneal adenopathy, hemorrhage or masses. APPENDIX: Normal. LARGE AND SMALL BOWEL: GJ tube in good positioning. Stomach is decompressed. Small bowel and colon are decompressed. ABDOMINAL WALL: No hernia or masses. PERITONEAL CAVITY: No free air. No free fluid. No peritoneal implants or masses. BONES: Convex leftward lumbar curvature, Bilateral chronic appearing hip dislocations PELVIS: Pelvis was included in the field of view, Mcconnell catheter drains the bladder. No free pelvic fluid. Normal size female pelvic organs. IMPRESSION: Dense lung consolidation bilaterally from pneumonia. No parapneumonic effusion. Unremarkable non contrasted CT of the abdomen and pelvis TECHNICAL DOCUMENTATION: JOB ID: [id number] Quality ID # [id number]: Final reports with documentation of one or more dose reduction techniques (e.g., Au tomated exposure control, adjustment of the mA and/or kV according to patient size, use of iterative reconstruction technique) 2010 [employer]- All Rights Reserved Reading location - IP/workstation name: [email or web address]
[2018-04-15] MEDS: MIDAZOLAM HCL 50 MG/100 ML RTUINJ IV PRN (16:12)
[2018-04-15] MEDS: ZONISAMIDE 100 MG CAPSULE PEG SCH (21:23)
[2018-04-16] MEDS: METRONIDAZOLE 500 MG/NS RTU 500 MG/100 ML RTUPB IV SCH ×4 (02:03→21:02)
[2018-04-16] MEDS: LEVALBUTEROL HCL NEB 1.25 MG/3 ML AMPUL NEB SCH ×4 (02:04→20:24)
[2018-04-16] MEDS: DEXTROSE 5%-WATER 250 ML with NOREPINEPHRINE BITARTRATE 4 MG IV PRN ×4 (03:52→16:58)
[2018-04-16] MEDS: NORMAL SALINE 1000 ML 1,000 ML IV PRN ×2 (03:53→17:59)
[2018-04-16 04:34] LABS: ARTERIAL BLOOD BASE EXCESS -5.2 mmol/L; ARTERIAL BLOOD H2CO3 0.66 mmol/L (1.05-1.35); ARTERIAL BLOOD HCO3 16.4 mmol/L (20-24); ARTERIAL BLOOD O2 SATURATION 96.2 % (94-98); ARTERIAL BLOOD PCO2 21.8 mmHg (35-45); ARTERIAL BLOOD PH 7.49 (7.35-7.45); ARTERIAL BLOOD PO2 73.6 mmHg (80-100); ARTERIAL BLOOD TOTAL CO2 17.1 mmol/L (21-25)
[2018-04-16 04:35] LABS: ABSOLUTE LYMPHOCYTES (AUTO) 1.2 10^3/uL (0.5-4.7); ABSOLUTE MONOCYTES (AUTO) 0.3 10^3/uL (0.1-1.4); ABSOLUTE NEUT (AUTO) 12.3 10^3/uL (1.7-8.2); BASOPHILS % (AUTO) 0.3 % (0-2); EOSINOPHILS % (AUTO) 0.2 % (0-6); HEMATOCRIT 31.2 % (36.0-47.0); HEMOGLOBIN 10.9 g/dL (12.0-15.5); LYMPHOCYTES % (AUTO) 8.6 % (13-45); MEAN CORPUSCULAR HEMOGLOBIN 33.2 pg (27.0-33.4); MEAN CORPUSCULAR HGB CONC 34.8 g/dL (32.0-36.0); MEAN CORPUSCULAR VOLUME 95 fl (80-97); PLATELET COUNT 137 10^3/uL (150-450); RED BLOOD COUNT 3.27 10^6/uL (3.72-5.28); RED CELL DISTRIBUTION WIDTH 14.6 % (11.5-14.0); SEGMENTED NEUTROPHILS % (AUTO) 88.9 % (42-78); TOTAL CELLS COUNTED % (AUTO) 100 %; WHITE BLOOD COUNT 13.9 10^3/uL (4.0-10.5)
[2018-04-16 04:37] LABS: ARTERIAL BLOOD FIO2 40%
[2018-04-16 04:46] LABS: ALANINE AMINOTRANSFERASE 67 U/L (9-52); ALBUMIN 1.9 g/dL (3.5-5.0); ALKALINE PHOSPHATASE 145 U/L (38-126); ANION GAP 8 (5-19); ASPARTATE AMINO TRANSFERASE 51 U/L (14-36); BILIRUBIN,DIRECT 1.8 mg/dL (0.0-0.4); BILIRUBIN,TOTAL 2.1 mg/dL (0.2-1.3); BLOOD UREA NITROGEN 4 mg/dL (7-20); CALCIUM 7.2 mg/dL (8.4-10.2); CARBON DIOXIDE 17 mmol/L (22-30); CHLORIDE 113 mmol/L (98-107); GLUCOSE 101 mg/dL (75-110); SODIUM 137.5 mmol/L (137-145); TOTAL PROTEIN 4.1 g/dL (6.3-8.2)
[2018-04-16 04:50] LABS: POTASSIUM 2.9 mmol/L (3.6-5.0)
[2018-04-16] MEDS: PIPERACILLIN SODIUM/TAZOBACTAM 3.375 GM in NORMAL SALINE 100 ML IV SCH ×3 (05:08→17:59)
[2018-04-16] MEDS: CARBAMAZEPINE SUSP 200 MG/10 ML UDCUP PEG SCH ×3 (05:08→21:24)
[2018-04-16] MEDS ORDERED: POTASSI CL 20 MEQ/50 ML RIDER 20 MEQ/50 ML RTUPB IV ONE (06:18)
[2018-04-16] MEDS: POTASSIUM CHLORIDE 20 MEQ/50 ML RTU IV SCH ×3 (07:35→10:42)
[2018-04-16] MEDS: MIDAZOLAM HCL 50 MG/100 ML RTUINJ IV PRN ×4 (08:43→23:20)
[2018-04-16] MEDS: CALCIUM CARBONATE 500 MG TAB.CHEW PEG SCH (10:09)
[2018-04-16] MEDS: FAMOTIDINE INJ/PF 20 MG/2 ML SDV IV SCH ×2 (10:09→21:24)
[2018-04-16] MEDS: ENOXAPARIN SODIUM INJ 40 MG/0.4 ML DISP.SYRIN SUBCUT SCH (10:10)
[2018-04-16] MEDS: POLYETHYLENE GLYCOL 3350 POWDER 17 GM/1 PACKET PEG SCH (10:11)
[2018-04-16] MEDS: VANCOMYCIN HCL 1,000 MG in DEXTROSE 5%-WATER 250 ML IV SCH ×2 (10:15→21:37)
[2018-04-16] MEDS: BACLOFEN 20 MG TABLET PEG SCH ×4 (10:16→21:16)
[2018-04-16 10:45] LABS: VANCOMYCIN,TROUGH 15.9 ug/mL (5.0-20.0)
[2018-04-16] MEDS ORDERED: PROPOFOL 1,000 MG/100 ML INFUS..BTL IV ONE (12:44)
[2018-04-16] MEDS: PROPOFOL 1,000 MG/100 ML INFUS..BTL IV PRN ×2 (12:50→22:14)
[2018-04-16 12:59] LABS: ARTERIAL BLOOD BASE EXCESS -7.7 mmol/L; ARTERIAL BLOOD H2CO3 0.84 mmol/L (1.05-1.35); ARTERIAL BLOOD O2 SATURATION 93.8 % (94-98); ARTERIAL BLOOD PCO2 27.8 mmHg (35-45); ARTERIAL BLOOD PH 7.38 (7.35-7.45); ARTERIAL BLOOD PO2 68.9 mmHg (80-100); ARTERIAL BLOOD TOTAL CO2 16.9 mmol/L (21-25)
[2018-04-16 13:02] LABS: ARTERIAL BLOOD FIO2 50%
[2018-04-16 16:42] LABS: ANION GAP 6 (5-19); BLOOD UREA NITROGEN 4 mg/dL (7-20); CALCIUM 7.2 mg/dL (8.4-10.2); CARBON DIOXIDE 17 mmol/L (22-30); CHLORIDE 117 mmol/L (98-107); GLUCOSE 87 mg/dL (75-110); SODIUM 139.6 mmol/L (137-145)
[2018-04-16 16:53] LABS: POTASSIUM 4.1 mmol/L (3.6-5.0)
--- NOTE | 2018-04-16 19:19 | PDOC PROGRESS REPORT ---
Subjective Progress Note for:: 04/16/18 Subjective:: Patient on mechanical ventilation, sedated Reason For Visit: RESPIRATORY DISTRESS, PNEUMONIA Physical Exam Vital Signs: Temp Pulse Resp BP Pulse Ox 97.5 F 88 18 118/50 L 94 04/16/18 18:00 04/16/18 18:00 04/16/18 18:00 04/16/18 18:00 04/16/18 18:00 Intake & Output 04/15/18 04/16/18 04/17/18 06:59 06:59 06:59 Intake Total 482005 Output Total 1050 2900 1135 Balance 4550 -594 1043 Weight 44.1 kg 46.3 kg General appearance: PRESENT: no acute distress Respiratory exam: PRESENT: rhonchi Cardiovascular exam: PRESENT: +S1, +S2 GI/Abdominal exam: PRESENT: soft Neurological exam: PRESENT: alert Results Laboratory Results: 04/16/18 04:25 04/16/18 16:11 04/16/18 04/16/18 04/16/18 04:25 04:25 04:25 WBC 13.9 H RBC 3.27 L Hgb 10.9 L Hct 31.2 L MCV 95 MCH 33.2 MCHC 34.8 RDW 14.6 H Plt Count 137 L Seg Neutrophils % 88.9 H Lymphocytes % 8.6 L Monocytes % 2.0 L Eosinophils % 0.2 Basophils % 0.3 Absolute Neutrophils 12.3 H Absolute Lymphocytes 1.2 Absolute Monocytes 0.3 Absolute Eosinophils 0.0 Absolute Basophils 0.0 Carbonic Acid 0.66 L HCO3/H2CO3 Ratio 24:1 ABG pH 7.49 H ABG pCO2 21.8 L ABG pO2 73.6 L ABG HCO3 16.4 L ABG O2 Saturation 96.2 ABG Base Excess -5.2 FiO2 40% Sodium 137.5 Potassium 2.9 L* D Chloride 113 H Carbon Dioxide 17 L Anion Gap 8 BUN 4 L Creatinine 0.39 L Est GFR ( Amer) > 60 Est GFR (Non-Af Amer) > 60 Glucose 101 Calcium 7.2 L Magnesium 1.7 Total Bilirubin 2.1 H AST 51 H ALT 67 H Alkaline Phosphatase 145 H Total Protein 4.1 L Albumin 1.9 L 04/16/18 04/16/18 12:49 16:11 WBC RBC Hgb Hct MCV MCH MCHC RDW Plt Count Seg Neutrophils % Lymphocytes % Monocytes % Eosinophils % Basophils % Absolute Neutrophils Absolute Lymphocytes Absolute Monocytes Absolute Eosinophils Absolute Basophils Carbonic Acid 0.84 L HCO3/H2CO3 Ratio 19:1 ABG pH 7.38 ABG pCO2 27.8 L ABG pO2 68.9 L ABG HCO3 16.0 L ABG O2 Saturation 93.8 L ABG Base Excess -7.7 FiO2 50% Sodium 139.6 Potassium 4.1 D Chloride 117 H Carbon Dioxide 17 L Anion Gap 6 BUN 4 L Creatinine 0.34 L Est GFR ( Amer) > 60 Est GFR (Non-Af Amer) > 60 Glucose 87 Calcium 7.2 L Magnesium 1.6 Total Bilirubin AST ALT Alkaline Phosphatase Total Protein Albumin 04/14/18 11:23 Catheterized Urine Urine Culture - Final NO GROWTH 2 DAYS 04/15/18 07:40 Tracheal Aspirate Gram Stain - Final Impressions: Abdomen/Pelvis CT 04/15/18 00:00 IMPRESSION: Dense lung consolidation bilaterally from pneumonia. No parapneumonic effusion. Unremarkable non contrasted CT of the abdomen and pelvis Chest CT 04/15/18 00:00 IMPRESSION: Dense lung consolidation bilaterally from pneumonia. No parapneumonic effusion. Unremarkable non contrasted CT of the abdomen and pelvis Chest X-Ray 04/15/18 06:00 IMPRESSION: Persistent dense right upper lobe and right medial lung base pneumonia. Assessment & Plan - Diagnosis (1) Acute respiratory failure Qualifiers: Respiratory failure complication: unspecified whether with hypoxia or h ypercapnia Qualified Code(s): J96.00 - Acute respiratory failure, unspecified whether with hypoxia or hypercapnia Is this a current diagnosis for this admission?: Yes (2) Profound mental retardation Is this a current diagnosis for this admission?: Yes (3) Septic shock Is this a current diagnosis for this admission?: Yes (4) Aspiration pneumonia Qualifiers: Aspiration pneumonia type: unspecified Laterality: unspecified laterality Is this a current diagnosis for this admission?: Yes (5) Leukocytosis Qualifiers: Leukocytosis type: bandemia Qualified Code(s): D72.825 - Bandemia Is this a current diagnosis for this admission?: Yes (6) Seizure disorder Is this a current diagnosis for this admission?: Yes (7) Contracture of joint of multiple sites Is this a current diagnosis for this admission?: Yes - Plan Summary Plan Summary: Medication review, continue present treatment
[2018-04-16 20:39] LABS: ANION GAP 5 (5-19); BLOOD UREA NITROGEN 4 mg/dL (7-20); CALCIUM 7.2 mg/dL (8.4-10.2); CARBON DIOXIDE 18 mmol/L (22-30); CHLORIDE 117 mmol/L (98-107); GLUCOSE 87 mg/dL (75-110); POTASSIUM 3.9 mmol/L (3.6-5.0); SODIUM 140.2 mmol/L (137-145)
[2018-04-16] MEDS: ZONISAMIDE 100 MG CAPSULE PEG SCH (21:25)
[2018-04-17] MEDS: PIPERACILLIN SODIUM/TAZOBACTAM 3.375 GM in NORMAL SALINE 100 ML IV SCH ×3 (00:14→13:46)
[2018-04-17] MEDS: LEVALBUTEROL HCL NEB 1.25 MG/3 ML AMPUL NEB SCH ×3 (02:54→14:14)
[2018-04-17 04:24] LABS: ABSOLUTE LYMPHOCYTES (AUTO) 2.2 10^3/uL (0.5-4.7); ABSOLUTE MONOCYTES (AUTO) 0.4 10^3/uL (0.1-1.4); ABSOLUTE NEUT (AUTO) 13.5 10^3/uL (1.7-8.2); BASOPHILS % (AUTO) 0.2 % (0-2); EOSINOPHILS % (AUTO) 0.2 % (0-6); HEMATOCRIT 32.4 % (36.0-47.0); LYMPHOCYTES % (AUTO) 13.8 % (13-45); MEAN CORPUSCULAR HEMOGLOBIN 32.9 pg (27.0-33.4); MEAN CORPUSCULAR HGB CONC 33.8 g/dL (32.0-36.0); MEAN CORPUSCULAR VOLUME 97 fl (80-97); MONOCYTES % (AUTO) 2.7 % (3-13); PLATELET COUNT 108 10^3/uL (150-450); RED BLOOD COUNT 3.33 10^6/uL (3.72-5.28); RED CELL DISTRIBUTION WIDTH 15.3 % (11.5-14.0); SEGMENTED NEUTROPHILS % (AUTO) 83.1 % (42-78); TOTAL CELLS COUNTED % (AUTO) 100 %; WHITE BLOOD COUNT 16.2 10^3/uL (4.0-10.5)
[2018-04-17] MEDS: METRONIDAZOLE 500 MG/NS RTU 500 MG/100 ML RTUPB IV SCH ×3 (04:29→15:59)
[2018-04-17 04:36] LABS: ALANINE AMINOTRANSFERASE 59 U/L (9-52); ALBUMIN 1.8 g/dL (3.5-5.0); ALKALINE PHOSPHATASE 144 U/L (38-126); ANION GAP 8 (5-19); ASPARTATE AMINO TRANSFERASE 73 U/L (14-36); BILIRUBIN,DIRECT 2.6 mg/dL (0.0-0.4); BLOOD UREA NITROGEN 6 mg/dL (7-20); CALCIUM 7.2 mg/dL (8.4-10.2); CARBON DIOXIDE 17 mmol/L (22-30); CHLORIDE 117 mmol/L (98-107); GLUCOSE 94 mg/dL (75-110); POTASSIUM 3.7 mmol/L (3.6-5.0); SODIUM 141.6 mmol/L (137-145); TOTAL PROTEIN 4.2 g/dL (6.3-8.2)
[2018-04-17 04:42] LABS: ARTERIAL BLOOD BASE EXCESS -11.7 mmol/L; ARTERIAL BLOOD H2CO3 0.91 mmol/L (1.05-1.35); ARTERIAL BLOOD HCO3 13.9 mmol/L (20-24); ARTERIAL BLOOD PCO2 30.3 mmHg (35-45); ARTERIAL BLOOD PH 7.28 (7.35-7.45); ARTERIAL BLOOD PO2 76.7 mmHg (80-100); ARTERIAL BLOOD TOTAL CO2 14.8 mmol/L (21-25)
[2018-04-17 04:43] LABS: ARTERIAL BLOOD FIO2 70%
[2018-04-17] MEDS: PROPOFOL 1,000 MG/100 ML INFUS..BTL IV PRN ×2 (05:43→12:55)
[2018-04-17] MEDS: MIDAZOLAM HCL 50 MG/100 ML RTUINJ IV PRN ×2 (05:46→12:05)
[2018-04-17] MEDS: CARBAMAZEPINE SUSP 200 MG/10 ML UDCUP PEG SCH ×2 (05:47→15:53)
--- NOTE | 2018-04-17 08:46 | RADIOLOGY REPORT (SQ) ---
EXAM DESCRIPTION: CHEST SINGLE VIEW COMPLETED DATE/TIME: 04/17/2018 6:43 am REASON FOR STUDY: resp failure COMPARISON: 04/15/2018 NUMBER OF VIEWS: One view. TECHNIQUE: Single frontal radiographic image of the chest acquired. LIMITATIONS: None. FINDINGS: LUNGS AND PLEURA: Bilateral airspace disease progression with near complete opacification of both lungs. Relative sparing left apex. Associated air bronchograms. MEDIASTINUM AND HEART: Stable heart size and mediastinal structures. SUPPORT DEVICES: Appropriate location without change. BONY STRUCTURES: No acute findings. HARDWARE: None. OTHER: No other significant finding. IMPRESSION: Progressing edema or sepsis. No pneumothorax. Reading location - IP/workstation name: [email or web address]
[2018-04-17] MEDS ORDERED: FUROSEMIDE INJ/PF 20 MG/2 ML SDV ONE ×2 (11:01→11:27)
[2018-04-17] MEDS: FAMOTIDINE INJ/PF 20 MG/2 ML SDV IV SCH (11:07)
[2018-04-17] MEDS: POLYETHYLENE GLYCOL 3350 POWDER 17 GM/1 PACKET PEG SCH (11:08)
[2018-04-17] MEDS: CALCIUM CARBONATE 500 MG TAB.CHEW PEG SCH (11:09)
[2018-04-17] MEDS: BACLOFEN 20 MG TABLET PEG SCH ×2 (11:10→15:54)
[2018-04-17] MEDS: ENOXAPARIN SODIUM INJ 40 MG/0.4 ML DISP.SYRIN SUBCUT SCH (11:10)
[2018-04-17] MEDS: VANCOMYCIN HCL 1,000 MG in DEXTROSE 5%-WATER 250 ML IV SCH (11:10)
[2018-04-17] MEDS ORDERED: FUROSEMIDE INJ/PF 20 MG/2 ML SDV IV SCH ×2 (11:30→22:00)
[2018-04-17] MEDS ORDERED: FUROSEMIDE INJ/PF 40 MG/4 ML SDV IV ONE (13:00)
[2018-04-17] MEDS: NORMAL SALINE 1000 ML 1,000 ML IV PRN (13:45)
[2018-04-17 13:58] LABS: ARTERIAL BLOOD BASE EXCESS -13.3 mmol/L; ARTERIAL BLOOD H2CO3 1.41 mmol/L (1.05-1.35); ARTERIAL BLOOD HCO3 15.4 mmol/L (20-24); ARTERIAL BLOOD O2 SATURATION 89.4 % (94-98); ARTERIAL BLOOD PCO2 46.9 mmHg (35-45); ARTERIAL BLOOD PO2 72.7 mmHg (80-100); ARTERIAL BLOOD TOTAL CO2 16.9 mmol/L (21-25)
[2018-04-17 13:59] LABS: ARTERIAL BLOOD FIO2 100%
[2018-04-17 14:01] LABS: ARTERIAL BLOOD PH 7.14 (7.35-7.45)
[2018-04-17] MEDS ORDERED: MORPHINE SULFATE 10 MG/ML INJ IV PRN (15:04)
[2018-04-17] MEDS ORDERED: LORAZEPAM INJ 2 MG/1 ML VIAL IV PRN (15:06)
[2018-04-17 15:33] VITALS: BP 95/51
--- NOTE | 2018-04-17 16:43 | PDOC CONSULTATION ---
Consultation Consult Date: 04/14/18 Attending physician:: YUKI MARSHALL Consult reason:: Acute respiratory failure History of Present Illness Admission Date/PCP: 04/14/18 12:48 YUKI MARSHALL MD History of Present Illness: JOSIE ALANIZ is a 27 year old female,Resident of [facility] had an aspi ration event became acutely short of breath and hypertensive subsequently she was transferred to the emergency room at that time she was started on vasopressors and intubated as well as sedated she is currently in the ICU. Past Medical History Cardiac Medical History: Denies: Myocardial Infarction, Pulmonary Embolism Pulmonary Medical History: Reports: Pneumonia, Respiratory Failure Neurological Medical History: Reports: Seizures Endocrine Medical History: Denies: Diabetes Mellitus Type 1 GI Medical History: Reports: Gastroesophageal Reflux Disease Denies: Cirrhosis, Crohn's Disease, Ulcerative Colitis Musculoskeltal Medical History: Denies: Gout Skin Medical History: Denies: Psoriasis Traumatic Medical History: Denies: Traumatic Brain Injury Hematology: Denies: Sickle Cell Disease, Bleeding Tendencies Infectious Medical History: Denies: Hepatitis B, HIV Past Surgical History Past Surgical History: Reports: Other - G-tube placement Social History Information Source: [facility] Records Smoking Status: Never Smoker Frequency of Alcohol Use: None Hx Recreational Drug Use: No Hx Prescription Drug Abuse: No Do you have pets?: No Have you been exposed to any sick contacts recently?: No Have you had any recent respiratory illnesses?: No Have you travelled outside of [place] in the past 12 months?: No Family History Parental Family History Reviewed: No Children Family History Reviewed: No Sibling(s) Family History Reviewed.: No Medication/Allergy Home Medications: Baclofen [Baclofen 20 mg Tablet] 20 mg PEG QID 02/16/17 Calcium Carbonate 1,250 mg PEG DAILY 02/16/17 Lansoprazole [Prevacid 15 mg Odt Tablet] 15 mg PEG Q6AM 02/16/17 Levonorgestrel-Ethin Estradiol [Introvale 0.15-0.03 mg Tablet] 1 tab PEG DAILY 02/16/17 Polyethylene Glycol 3350 [Miralax Powder 17 gm/Packet] 1 packet PEG DAILY 01/23 08/08 Zonisamide [Zonegran 100 mg Capsule] 200 mg PEG QHS 02/16/17 Carbamazepine [Tegretol Susp 200 mg/10 mL UD Cup] 200 mg PEG TID 04/14/18 Diazepam [Diastat Acudial] 1 each RC Q6HP PRN 04/14/18 Promethazine HCl [Phenergan 25 mg Supp.rect] 1 supp UT Q8HP PRN 04/14/18 Allergies/Adverse Reactions: No Known Allergies Allergy (Verified 04/14/18 08:55) Review of Systems ROS unobtainable: Due to endotracheal tube, Due to mental status Physical Exam Vital Signs: Temp Pulse Resp BP Pulse Ox 84 28 H 103/57 L 96 04/14/18 13:49 04/14/18 16:40 04/14/18 16:40 04/14/18 16:40 Intake & Output 04/13/18 04/14/18 04/15/18 06:59 06:59 06:59 Intake Total 2481 Balance 2481 Weight 44.9 kg General appearance: PRESENT: no acute distress, disheveled, thin. ABSENT: cooperative Head exam: PRESENT: atraumatic, normocephalic Eye exam: PRESENT: conjunctiva pale. ABSENT: nystagmus, periorbital swelling, scleral icterus Mouth exam: PRESENT: dry mucosa, neck supple, tongue midline, other - 7. ET tube Neck exam: PRESENT: tracheostomy. ABSENT: carotid bruit, JVD, lymphadenopathy, thyromegaly, tracheal deviation Respiratory exam: PRESENT: decreased breath sounds, prolonged expiratory phas, rales, rhonchi, wheezes. ABSENT: retraction, stridor Cardiovascular exam: PRESENT: RRR, +S1, +S2, tachycardia Pulses: PRESENT: normal radial pulses GI/Abdominal exam: PRESENT: soft, other - PEG tube. ABSENT: tenderness Gentrourinary exam: PRESENT: indwelling catheter Extremities exam: ABSENT: calf tenderness, clubbing, joint swelling, pedal edema Musculoskeletal exam: PRESENT: deformity. ABSENT: ambulatory, dislocation Neurological exam: ABSENT: awake Skin exam: PRESENT: dry, warm Results Laboratory Results: 04/14/18 09:10 04/14/18 09:10 04/14/18 04/14/18 04/14/18 09:10 09:10 09:10 WBC 1.4 L* RBC 3.65 L Hgb 12.1 Hct 36.0 MCV 99 H MCH 33.2 MCHC 33.6 RDW 14.4 H Plt Count 164 Seg Neutrophils % Not Reportable Lymphocytes % Not Reportable Monocytes % Not Reportable Eosinophils % Not Reportable Basophils % Not Reportable Absolute Neutrophils Not Reportable Absolute Lymphocytes Not Reportable Absolute Monocytes Not Reportable Absolute Eosinophils Not Reportable Absolute Basophils Not Reportable VBG pH VBG pCO2 VBG HCO3 VBG Base Excess Sodium 137.9 Potassium 3.1 L Chloride 111 H Carbon Dioxide 16 L Anion Gap 11 BUN 9 Creatinine 0.44 L Est GFR ( Amer) > 60 Est GFR (Non-Af Amer) > 60 Glucose 96 Lactic Acid 5.3 H Calcium 6.9 L* Magnesium Total Bilirubin 1.2 AST 46 H ALT 42 Alkaline Phosphatase 197 H Total Protein 4.7 L Albumin 2.2 L Urine Color Urine Appearance Urine pH Ur Specific [place] Urine Protein Urine Glucose (UA) Urine Ketones Urine Blood Urine Nitrite Ur Leukocyte Esterase Urine WBC (Auto) Urine RBC (Auto) 04/14/18 04/14/18 04/14/18 09:10 09:10 11:23 WBC RBC Hgb Hct MCV MCH MCHC RDW Plt Count Seg Neutrophils % Lymphocytes % Monocytes % Eosinophils % Basophils % Absolute Neutrophils Absolute Lymphocytes Absolute Monocytes Absolute Eosinophils Absolute Basophils VBG pH 7.24 L VBG pCO2 35.3 VBG HCO3 14.9 L VBG Base Excess -11.4 Sodium Potassium Chloride Carbon Dioxide Anion Gap BUN Creatinine Est GFR ( Amer) Est GFR (Non-Af Amer) Glucose Lactic Acid Calcium Magnesium 1.5 L Total Bilirubin AST ALT Alkaline Phosphatase Total Protein Albumin Urine Color KATIE Urine Appearance CLOUDY Urine pH 5.0 Ur Specific [place] 1.020 Urine Protein 30 H Urine Glucose (UA) NEGATIVE Urine Ketones NEGATIVE Urine Blood NEGATIVE Urine Nitrite NEGATIVE Ur Leukocyte Esterase NEGATIVE Urine WBC (Auto) 16 Urine RBC (Auto) 2 04/14/18 12:07 WBC RBC Hgb Hct MCV MCH MCHC RDW Plt Count Seg Neutrophils % Lymphocytes % Monocytes % Eosinophils % Basophils % Absolute Neutrophils Absolute Lymphocytes Absolute Monocytes Absolute Eosinophils Absolute Basophils VBG pH VBG pCO2 VBG HCO3 VBG Base Excess Sodium Potassium Chloride Carbon Dioxide Anion Gap BUN Creatinine Est GFR ( Amer) Est GFR (Non-Af Amer) Glucose Lactic Acid 5.1 H Calcium Magnesium Total Bilirubin AST ALT Alkaline Phosphatase Total Protein Albumin Urine Color Urine Appearance Urine pH Ur Specific [place] Urine Protein Urine Glucose (UA) Urine Ketones Urine Blood Urine Nitrite Ur Leukocyte Esterase Urine WBC (Auto) Urine RBC (Auto) Impressions: Chest X-Ray 04/14/18 08:11 IMPRESSION: Endotracheal and nasogastric tube in good positioning Collapse and consolidation right upper lobe Diffuse bilateral lower lobe airspace disease worrisome for pneumonia. Assessment & Plan - Diagnosis (1) Acute respiratory failure Qualifiers: Respiratory failure complication: unspecified whether with hypoxia or hypercapnia Qualified Code(s): J96.00 - Acute respiratory failure, unspecified whether with hypoxia or hypercapnia Is this a current diagnosis for this admission?: Yes Plan: Ventilate and oxygenate as needed hyperventilated to maintain adequate pH (2) Aspiration pneumonia Qualifiers: Aspiration pneumonia type: unspecified Laterality: unspecified laterality Is this a current diagnosis for this admission?: Yes Plan: Patient poor candidate for bronchoscopy frequent tracheal suctioning (3) Contracture of joint of multiple sites Is this a current diagnosis for this admission?: Yes Plan: Long-term results of being bedridden (4) Profound mental retardation Is this a current diagnosis for this admission?: Yes Plan: Lifelong unchanged (5) Septic shock Is this a current diagnosis for this admission?: Yes Plan: Requiring multiple vasopressor agents - Time Total Critical Time (Minutes): 55
--- NOTE | 2018-04-17 16:47 | PDOC PROGRESS REPORT ---
Subjective Progress Note for:: 04/15/18 Subjective:: Intubated and sedated unchanged Reason For Visit: RESPIRATORY DISTRESS, PNEUMONIA Physical Exam Vital Signs: Temp Pulse Resp BP Pulse Ox 97.9 F 103 H 22 H 96/40 L 98 04/15/18 08:00 04/15/18 10:00 04/15/18 10:00 04/15/18 10:00 04/15/18 10:00 Intake & Output 04/14/18 04/15/18 04/16/18 06:59 06:59 06:59 Intake Total 4820 176 Output Total 1050 525 Balance 3770 -349 Weight 44.1 kg General appearance: PRESENT: no acute distress, thin, well-developed, well- nourished. ABSENT: cooperative Head exam: PRESENT: atraumatic Eye exam: PRESENT: conjunctiva pale. ABSENT: nystagmus Mouth exam: PRESENT: dry mucosa, neck supple, tongue midline, other - ET tube Neck exam: ABSENT: carotid bruit, full ROM, JVD, lymphadenopathy, meningismus, tenderness, thyromegaly, tracheal deviation, tracheostomy, other Respiratory exam: PRESENT: decreased breath sounds, prolonged expiratory phas, rales, rhonchi, unlabored. ABSENT: stridor Cardiovascular exam: PRESENT: RRR, +S1, +S2, tachycardia Pulses: PRESENT: normal radial pulses GI/Abdominal exam: PRESENT: soft, other - PEG tube Extremities exam: PRESENT: pedal edema. ABSENT: calf tenderness, clubbing, joint swelling Musculoskeletal exam: PRESENT: deformity. ABSENT: ambulatory Neurological exam: ABSENT: awake Skin exam: PRESENT: dry, warm Results Laboratory Results: 04/15/18 05:15 04/15/18 05:15 04/14/18 04/14/18 04/14/18 12:07 18:50 18:50 WBC RBC Hgb Hct MCV MCH MCHC RDW Plt Count Seg Neutrophils % Lymphocytes % Monocytes % Eosinophils % Basophils % Absolute Neutrophils Absolute Lymphocytes Absolute Monocytes Absolute Eosinophils Absolute Basophils Carbonic Acid 0.68 L HCO3/H2CO3 Ratio 23:1 ABG pH 7.46 H ABG pCO2 22.7 L ABG pO2 62.2 L ABG HCO3 15.9 L ABG O2 Saturation 93.6 L ABG Base Excess -6.0 FiO2 60 Sodium 136.4 L Potassium 3.8 Chloride 111 H Carbon Dioxide 17 L Anion Gap 8 BUN 7 Creatinine 0.45 L Est GFR ( Amer) > 60 Est GFR (Non-Af Amer) > 60 Glucose 141 H Lactic Acid 5.1 H Calcium 6.7 L* Magnesium Total Bilirubin AST ALT Alkaline Phosphatase Total Protein Albumin 04/14/18 04/14/18 04/15/18 18:50 18:50 05:15 WBC 8.6 D RBC 3.54 L Hgb 11.9 L Hct 34.8 L MCV 98 H MCH 33.7 H MCHC 34.2 RDW 14.7 H Plt Count 162 Seg Neutrophils % 84.8 H Lymphocytes % 10.5 L Monocytes % 3.5 Eosinophils % 0.6 Basophils % 0.6 Absolute Neutrophils 7.3 Absolute Lymphocytes 0.9 Absolute Monocytes 0.3 Absolute Eosinophils 0.1 Absolute Basophils 0.0 Carbonic Acid HCO3/H2CO3 Ratio ABG pH ABG pCO2 ABG pO2 ABG HCO3 ABG O2 Saturation ABG Base Excess FiO2 Sodium Potassium Chloride Carbon Dioxide Anion Gap BUN Creatinine Est GFR ( Amer) Est GFR (Non-Af Amer) Glucose Lactic Acid Calcium Magnesium 2.2 Total Bilirubin AST ALT Alkaline Phosphatase Total Protein Albumin 2.1 L 04/15/18 04/15/18 05:15 05:30 WBC RBC Hgb Hct MCV MCH MCHC RDW Plt Count Seg Neutrophils % Lymphocytes % Monocytes % Eosinophils % Basophils % Absolute Neutrophils Absolute Lymphocytes Absolute Monocytes Absolute Eosinophils Absolute Basophils Carbonic Acid 0.67 L HCO3/H2CO3 Ratio 20:1 ABG pH 7.40 ABG pCO2 22.4 L ABG pO2 135.9 H ABG HCO3 13.5 L ABG O2 Saturation 98.8 H ABG Base Excess -9.4 FiO2 60% Sodium 137.2 Potassium 4.2 Chloride 112 H Carbon Dioxide 16 L Anion Gap 9 BUN 6 L Creatinine 0.39 L Est GFR ( Amer) > 60 Est GFR (Non-Af Amer) > 60 Glucose 126 H Lactic Acid Calcium 6.8 L* Magnesium 1.9 Total Bilirubin 1.7 H AST 106 H ALT 83 H Alkaline Phosphatase 135 H Total Protein 4.5 L Albumin 2.1 L Impressions: Chest X-Ray 04/15/18 06:00 IMPRESSION: Persistent dense right upper lobe and right medial lung base pneumonia. Assessment & Plan - Diagnosis (1) Acute respiratory failure Qualifiers: Respiratory failure complication: unspecified whether with hypoxia or hypercapnia Qualified Code(s): J96.00 - Acute respiratory failure, unspecified whether with hypoxia or hypercapnia Is this a current diagnosis for this admission?: Yes Plan: Ventilate and oxygenate as needed hyperventilated to maintain adequate pH (2) Aspiration pneumonia Qualifiers: Aspiration pneumonia type: unspecified Laterality: unspecified laterality Is this a current diagnosis for this admission?: Yes Plan: Patient poor candidate for bronchoscopy frequent tracheal suctioning (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
--- NOTE | 2018-04-17 16:52 | PDOC PROGRESS REPORT ---
Subjective Progress Note for:: 04/16/18 Subjective:: Intubated and sedated unchanged Reason For Visit: RESPIRATORY DISTRESS, PNEUMONIA Physical Exam Vital Signs: Temp Pulse Resp BP Pulse Ox 97.0 F 83 22 H 105/49 L 93 04/16/18 10:05 04/16/18 10:00 04/16/18 10:05 04/16/18 10:05 04/16/18 10:05 Intake & Output 04/15/18 04/16/18 04/17/18 06:59 06:59 06:59 Intake Total 4820 1906 125 Output Total 1050 2900 180 Balance 3770 -994 -55 Weight 44.1 kg 46.3 kg General appearance: PRESENT: no acute distress. ABSENT: cooperative Head exam: PRESENT: atraumatic Eye exam: PRESENT: conjunctiva pale. ABSENT: nystagmus, periorbital swelling, scleral icterus Mouth exam: PRESENT: dry mucosa, neck supple, tongue midline, other - ET tube Teeth exam: PRESENT: poor dentation Neck exam: ABSENT: carotid bruit, JVD, lymphadenopathy, thyromegaly, tracheal deviation Respiratory exam: PRESENT: decreased breath sounds, prolonged expiratory phas, rales, rhonchi, tachypnea Cardiovascular exam: PRESENT: RRR, +S1, +S2, tachycardia Pulses: PRESENT: normal radial pulses GI/Abdominal exam: PRESENT: other - PEG tube Gentrourinary exam: PRESENT: indwelling catheter Extremities exam: PRESENT: +1 edema. ABSENT: calf tenderness, clubbing, full ROM, joint swelling, tenderness Musculoskeletal exam: PRESENT: deformity. ABSENT: ambulatory, dislocation, full ROM Neurological exam: ABSENT: awake Skin exam: PRESENT: dry, warm Results Laboratory Results: 04/16/18 04:25 04/16/18 04:25 04/16/18 04/16/18 04/16/18 04:25 04:25 04:25 WBC 13.9 H RBC 3.27 L Hgb 10.9 L Hct 31.2 L MCV 95 MCH 33.2 MCHC 34.8 RDW 14.6 H Plt Count 137 L Seg Neutrophils % 88.9 H Lymphocytes % 8.6 L Monocytes % 2.0 L Eosinophils % 0.2 Basophils % 0.3 Absolute Neutrophils 12.3 H Absolute Lymphocytes 1.2 Absolute Monocytes 0.3 Absolute Eosinophils 0.0 Absolute Basophils 0.0 Carbonic Acid 0.66 L HCO3/H2CO3 Ratio 24:1 ABG pH 7.49 H ABG pCO2 21.8 L ABG pO2 73.6 L ABG HCO3 16.4 L ABG O2 Saturation 96.2 ABG Base Excess -5.2 FiO2 40% Sodium 137.5 Potassium 2.9 L* D Chloride 113 H Carbon Dioxide 17 L Anion Gap 8 BUN 4 L Creatinine 0.39 L Est GFR ( Amer) > 60 Est GFR (Non-Af Amer) > 60 Glucose 101 Calcium 7.2 L Magnesium 1.7 Total Bilirubin 2.1 H AST 51 H ALT 67 H Alkaline Phosphatase 145 H Total Protein 4.1 L Albumin 1.9 L Impressions: Abdomen/Pelvis CT 04/15/18 00:00 IMPRESSION: Dense lung consolidation bilaterally from pneumonia. No parapneumonic effusion. Unremarkable non contrasted CT of the abdomen and pelvis Chest CT 04/15/18 00:00 IMPRESSION: Dense lung consolidation bilaterally from pneumonia. No parapneumonic effusion. Unremarkable non contrasted CT of the abdomen and pelvis Chest X-Ray 04/15/18 06:00 IMPRESSION: Persistent dense right upper lobe and right medial lung base pneumonia. Assessment & Plan - Diagnosis (1) Acute respiratory failure Qualifiers: Respiratory failure complication: unspecified whether with hypoxia or hypercapnia Qualified Code(s): J96.00 - Acute respiratory failure, unspecified whether with hypoxia or hypercapnia Is this a current diagnosis for this admission?: Yes Plan: Ventilate and oxygenate as needed hyperventilated to maintain adequate pH (2) Aspiration pneumonia Qualifiers: Aspiration pneumonia type: unspecified Laterality: unspecified laterality Is this a current diagnosis for this admission?: Yes Plan: Patient poor candidate for bronchoscopy frequent tracheal suctioning (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
--- NOTE | 2018-04-17 16:59 | PDOC PROGRESS REPORT ---
Subjective Progress Note for:: 04/17/18 Subjective:: Intubated and sedated : Much worse today densities increased in both lungs positive fluid balance more tachypneic Reason For Visit: RESPIRATORY DISTRESS, PNEUMONIA Physical Exam Vital Signs: Temp Pulse Resp BP Pulse Ox 99.9 F 113 H 18 83/50 L 90 L 04/17/18 10:01 04/17/18 10:00 04/17/18 10:01 04/17/18 10:01 04/17/18 11:14 Intake & Output 04/16/18 04/17/18 04/18/18 06:59 06:59 06:59 Intake Total 2005 3205 60 Output Total 2900 1910 175 Balance -894 1295 -115 Weight 46.3 kg 45.9 kg General appearance: PRESENT: no acute distress. ABSENT: cooperative, disheveled, well-developed Head exam: PRESENT: atraumatic Eye exam: PRESENT: conjunctiva pale. ABSENT: nystagmus, periorbital swelling Mouth exam: PRESENT: dry mucosa, neck supple, tongue midline, other - ET tube Neck exam: ABSENT: carotid bruit, JVD, lymphadenopathy, thyromegaly, tracheal deviation Respiratory exam: PRESENT: decreased breath sounds, prolonged expiratory phas, rales, rhonchi, wheezes Cardiovascular exam: PRESENT: RRR, +S1, +S2, tachycardia Pulses: PRESENT: normal radial pulses GI/Abdominal exam: PRESENT: soft, other - PEG Gentrourinary exam: PRESENT: indwelling catheter Extremities exam: PRESENT: +1 edema. ABSENT: calf tenderness, clubbing, full ROM, joint swelling Musculoskeletal exam: PRESENT: deformity. ABSENT: ambulatory, dislocation Neurological exam: ABSENT: awake Skin exam: PRESENT: dry, warm Results Laboratory Results: 04/17/18 03:56 04/17/18 03:56 04/16/18 04/16/18 04/16/18 12:49 16:11 20:10 WBC RBC Hgb Hct MCV MCH MCHC RDW Plt Count Seg Neutrophils % Lymphocytes % Monocytes % Eosinophils % Basophils % Absolute Neutrophils Absolute Lymphocytes Absolute Monocytes Absolute Eosinophils Absolute Basophils Carbonic Acid 0.84 L HCO3/H2CO3 Ratio 19:1 ABG pH 7.38 ABG pCO2 27.8 L ABG pO2 68.9 L ABG HCO3 16.0 L ABG O2 Saturation 93.8 L ABG Base Excess -7.7 FiO2 50% Sodium 139.6 140.2 Potassium 4.1 D 3.9 Chloride 117 H 117 H Carbon Dioxide 17 L 18 L Anion Gap 6 5 BUN 4 L 4 L Creatinine 0.34 L 0.34 L Est GFR ( Amer) > 60 > 60 Est GFR (Non-Af Amer) > 60 > 60 Glucose 87 87 Calcium 7.2 L 7.2 L Magnesium 1.6 1.6 Total Bilirubin AST ALT Alkaline Phosphatase Total Protein Albumin 04/17/18 04/17/18 04/17/18 03:56 03:56 04:30 WBC 16.2 H RBC 3.33 L Hgb 11.0 L Hct 32.4 L MCV 97 MCH 32.9 MCHC 33.8 RDW 15.3 H Plt Count 108 L Seg Neutrophils % 83.1 H Lymphocytes % 13.8 Monocytes % 2.7 L Eosinophils % 0.2 Basophils % 0.2 Absolute Neutrophils 13.5 H Absolute Lymphocytes 2.2 Absolute Monocytes 0.4 Absolute Eosinophils 0.0 Absolute Basophils 0.0 Carbonic Acid 0.91 L HCO3/H2CO3 Ratio 15:1 ABG pH 7.28 L ABG pCO2 30.3 L ABG pO2 76.7 L ABG HCO3 13.9 L ABG O2 Saturation 94.0 ABG Base Excess -11.7 FiO2 70% Sodium 141.6 Potassium 3.7 Chloride 117 H Carbon Dioxide 17 L Anion Gap 8 BUN 6 L Creatinine 0.50 L Est GFR ( Amer) > 60 Est GFR (Non-Af Amer) > 60 Glucose 94 Calcium 7.2 L Magnesium 1.6 Total Bilirubin 3.0 H AST 73 H ALT 59 H Alkaline Phosphatase 144 H Total Protein 4.2 L Albumin 1.8 L 04/15/18 07:40 Tracheal Aspirate Gram Stain - Final 04/15/18 07:40 Tracheal Aspirate Sputum Culture - Final Staphylococcus Aureus Klebsiella Pneumoniae Normal Teresa Absent 04/14/18 11:23 Catheterized Urine Urine Culture - Final NO GROWTH 2 DAYS Impressions: Abdomen/Pelvis CT 04/15/18 00:00 IMPRESSION: Dense lung consolidation bilaterally from pneumonia. No parapneumonic effusion. Unremarkable non contrasted CT of the abdomen and pelvis Chest CT 04/15/18 00:00 IMPRESSION: Dense lung consolidation bilaterally from pneumonia. No parapneumonic effusion. Unremarkable non contrasted CT of the abdomen and pelvis Chest X-Ray 04/17/18 06:00 IMPRESSION: Progressing edema or sepsis. No pneumothorax. Assessment & Plan - Time Total Critical Time (Minutes): 55 - Plan Summary Plan Summary: Long discussion with [employer] has elected to make patient comfort care
--- NOTE | 2018-04-17 17:51 | PDOC PROGRESS REPORT ---
Subjective Progress Note for:: 04/17/18 Subjective:: Patient with septic shock on mechanical ventilation family decided against continuing care, the care was transition to comfort care measures and patient today. Reason For Visit: RESPIRATORY DISTRESS, PNEUMONIA Physical Exam Vital Signs: Temp Pulse Resp BP Pulse Ox 101.3 F H 115 H 19 95/51 L 85 L 04/17/18 15:01 04/17/18 14:14 04/17/18 15:01 04/17/18 15:00 04/17/18 15:01 Intake & Output 04/16/18 04/17/18 04/18/18 06:59 06:59 06:59 Intake Total 2005 4305 714 Output Total 2900 1910 475 Balance -894 2395 239 Weight 46.3 kg 45.9 kg Results Laboratory Results: 04/17/18 03:56 04/17/18 03:56 04/16/18 04/17/18 04/17/18 20:10 03:56 03:56 WBC 16.2 H RBC 3.33 L Hgb 11.0 L Hct 32.4 L MCV 97 MCH 32.9 MCHC 33.8 RDW 15.3 H Plt Count 108 L Seg Neutrophils % 83.1 H Lymphocytes % 13.8 Monocytes % 2.7 L Eosinophils % 0.2 Basophils % 0.2 Absolute Neutrophils 13.5 H Absolute Lymphocytes 2.2 Absolute Monocytes 0.4 Absolute Eosinophils 0.0 Absolute Basophils 0.0 Carbonic Acid HCO3/H2CO3 Ratio ABG pH ABG pCO2 ABG pO2 ABG HCO3 ABG O2 Saturation ABG Base Excess FiO2 Sodium 140.2 141.6 Potassium 3.9 3.7 Chloride 117 H 117 H Carbon Dioxide 18 L 17 L Anion Gap 5 8 BUN 4 L 6 L Creatinine 0.34 L 0.50 L Est GFR ( Amer) > 60 > 60 Est GFR (Non-Af Amer) > 60 > 60 Glucose 87 94 Calcium 7.2 L 7.2 L Magnesium 1.6 1.6 Total Bilirubin 3.0 H AST 73 H ALT 59 H Alkaline Phosphatase 144 H Total Protein 4.2 L Albumin 1.8 L 04/17/18 04/17/18 04:30 13:40 WBC RBC Hgb Hct MCV MCH MCHC RDW Plt Count Seg Neutrophils % Lymphocytes % Monocytes % Eosinophils % Basophils % Absolute Neutrophils Absolute Lymphocytes Absolute Monocytes Absolute Eosinophils Absolute Basophils Carbonic Acid 0.91 L 1.41 H HCO3/H2CO3 Ratio 15:1 10:1 ABG pH 7.28 L 7.14 L* ABG pCO2 30.3 L 46.9 H ABG pO2 76.7 L 72.7 L ABG HCO3 13.9 L 15.4 L ABG O2 Saturation 94.0 89.4 L ABG Base Excess -11.7 -13.3 FiO2 70% 100% Sodium Potassium Chloride Carbon Dioxide Anion Gap BUN Creatinine Est GFR ( Amer) Est GFR (Non-Af Amer) Glucose Calcium Magnesium Total Bilirubin AST ALT Alkaline Phosphatase Total Protein Albumin 04/15/18 07:40 Tracheal Aspirate Gram Stain - Final 04/15/18 07:40 Tracheal Aspirate Sputum Culture - Final Staphylococcus Aureus Klebsiella Pneumoniae Normal Teresa Absent Impressions: Abdomen/Pelvis CT 04/15/18 00:00 IMPRESSION: Dense lung consolidation bilaterally from pneumonia. No parapneumonic effusion. Unremarkable non contrasted CT of the abdomen and pelvis Chest CT 04/15/18 00:00 IMPRESSION: Dense lung consolidation bilaterally from pneumonia. No parapneumonic effusion. Unremarkable non contrasted CT of the abdomen and pelvis Chest X-Ray 04/17/18 06:00 IMPRESSION: Progressing edema or sepsis. No pneumothorax. Assessment & Plan - Diagnosis (1) Acute respiratory failure Qualifiers: Respiratory failure complication: unspecified whether with hypoxia or hypercapnia Qualified Code(s): J96.00 - Acute respiratory failure, unspecified whether with hypoxia or hypercapnia Is this a current diagnosis for this admission?: Yes (2) Profound mental retardation Is this a current diagnosis for this admission?: Yes (3) Septic shock Is this a current diagnosis for this admission?: Yes (4) Aspiration pneumonia Qualifiers: Aspiration pneumonia type: unspecified Laterality: unspecified laterality Is this a current diagnosis for this admission?: Yes (5) Leukocytosis Qualifiers: Leukocytosis type: bandemia Qualified Code(s): D72.825 - Bandemia Is this a current diagnosis for this admission?: Yes (6) Seizure disorder Is this a current diagnosis for this admission?: Yes (7) Contracture of joint of multiple sites Is this a current diagnosis for this admission?: Yes
--- NOTE | 2018-05-12 16:32 | Death Summary ---
Summary Date : 04/17/18 Time of :: 17:05 Autopsy: No Resuscitation Status: Comfort Measures Only - Final Diagnosis (1) Acute respiratory failure Is this a current diagnosis for this admission?: Yes (2) Septic shock Is this a current diagnosis for this admission?: Yes (3) Aspiration pneumonia Is this a current diagnosis for this admission?: Yes (4) Contracture of joint of multiple sites Is this a current diagnosis for this admission?: Yes (5) Profound mental retardation Is this a current diagnosis for this admission?: Yes (6) Seizure disorder Is this a current diagnosis for this admission?: Yes Hospital Course:: This is a 27-year-old female with as above medical problems came with aspiration pneumonia respiratory distressed and patient was intubated in the ER and admitting in the ICU Patients also hypertensives and sepsis and septic shock At this point the patient's family decided to patient support on a comfort care and patient extubated and patient on the 04/17/18
== END 2018-04-17 17:05 | DRG 871 ==
LOC: ER 07:50 → EH 12:48 → ICU 17:10
PROVIDERS: ADMIT Family Medicine; ATTEND Family Medicine
PROC: 5A1945Z Respiratory Ventilation, 24-96 Consecutive Hours (ICD-10-PCS; principal; 2018-04-14)
PROC: 0BH17EZ Insertion of Endotracheal Airway into Trachea, Via Natural or Artificial Opening (ICD-10-PCS; 2018-04-14)
PROC: 3E0F73Z Introduction of Anti-inflammatory into Respiratory Tract, Via Natural or Artificial Opening (ICD-10-PCS; 2018-04-14)
PROC: 02HV33Z Insertion of Infusion Device into Superior Vena Cava, Percutaneous Approach (ICD-10-PCS; 2018-04-14)
DX: A41.9 Sepsis, unspecified organism (principal); J96.00 Acute respiratory failure, unspecified whether with hypoxia or hypercapnia; R65.21 Severe sepsis with septic shock; J69.0 Pneumonitis due to inhalation of food and vomit; F73 Profound intellectual disabilities; Z78.1 Physical restraint status; Z66 Do not resuscitate; K21.9 Gastro-esophageal reflux disease without esophagitis; I10 Essential (primary) hypertension; M24.50 Contracture, unspecified joint; G80.9 Cerebral palsy, unspecified; G40.909 Epilepsy, unspecified, not intractable, without status epilepticus; B95.61 Methicillin susceptible Staphylococcus aureus infection as the cause of diseases classified elsewhere; B96.1 Klebsiella pneumoniae [K. pneumoniae] as the cause of diseases classified elsewhere; Z79.899 Other long term (current) drug therapy
CPT/HCPCS: 36415; 71045; 71250; 74176; 80048; 80053; 80202; 81001; 82040; 82803; 83605; 83735; 85025; 85610; 87040; 87070; 87077; 87086; 87186; 87205; 87804; 93005; 93010; 94002; 94003; 94640; 96360; 99291; 99292; C1751; J0330; J0696; J1642; J1650; J1940; J2250; J2270; J2543; J2704; J3010; J3370; J3475; J3480; J3490; J7030; J7060; S0028